=== PATIENT | female | born 1930 | race Caucasian/White ===

== ENCOUNTER 2017-05-27 19:40 | Inpatient (IN) | payer OTHER ==
[~2017-05-27] VITALS: Ht 157.5 cm; Wt 85.1 kg
[~2017-05-27 19:40] MED LIST: ALPHA LIPOIC A600 MG PO; ATIVAN0.5 M1 PO; B COMPLEX1 EACH PO; BIOTIN1000 MC1 PO; CO Q-10100 MG PO; COD LIVER OIL1 EAC2 PO; COUMADIN2.5 M1 PO; COUMADIN5 M2 PO; FUROSEMIDE20 M1 PO; GLIPIZIDE ER5 M1 PO; LEVOTHYROXINE75 MCG PO; LIDOCAINE1 EACH TOP; MAGNESIUM500 M2 PO; MIRTAZAPINE7.5 M1 PO; MULTIVITAMINS1 EAC7 PO; PREDNISONE5 M1 PO; TART CHERRY CA1 EACH PO; VITAMIN B-121000 MC3 PO; VITAMIN D35000 UNI1 PO
--- NOTE | 2017-05-27 19:55 | ED GI/GU/ABDOMINAL COMPLAINT ---
See Addendum History of Present Illness General Chief Complaint: Nausea, Vomiting, Diarrhea Stated Complaint: BIBA FOR +N/V Source: patient Exam Limitations: no limitations Allergies Coded Allergies: clarithromycin (From BIAXIN) (Severe, DIGESTIVE SHUTDOWN, TREMORS 05/27/17) acetaminophen (From ULTRACET) (DIGESTIVE PROBLEMS 05/27/17) amoxicillin (DIGESTIVE PROBLEMS 05/27/17) aspirin (From DARVON COMPOUND-65) (SEVERE VOMITING 05/27/17) berberine (LOOSE EXPLOSIVE BOWELS 05/27/17) caffeine (From DARVON COMPOUND-65) (SEVERE VOMITING 05/27/17) duloxetine (DIGESTIVE PROBLEMS 05/27/17) escitalopram (From LEXAPRO) (NAUSEA/DEPRESSION 05/27/17) fluconazole (From DIFLUCAN) (CONSTANT NAUSEA 05/27/17) fondaparinux (From ARIXTRA) (DIGESTIVE SHUTDOWN, TREMORS 05/27/17) gabapentin (From NEURONTIN) (DIGESTIVE PROBLEMS 05/27/17) hydromorphone (VERY POOR PAIN RELIEF 05/27/17) hyoscyamine (OPPOSITE EFFECTS 05/27/17) imipramine (NAUSEA/DEPRESSION 05/27/17) meperidine (VOMITING 05/27/17) metformin (NAUSEA, BLADDER LEAKAGE 05/27/17) oxychlorosene (GI DISTRESS 11/06/16) oxycodone (NAUSEA, TREMORS, GI UPSET 05/27/17) paroxetine (From PAXIL) (VAGINITIS MONILIASIS 05/27/17) propafenone (NAUSEA, INCONTINENCE, DIZZINESS, TREMORS, SLEEPINESS 05/27/17) propoxyphene (VOMITING 11/06/16) sertraline (From ZOLOFT) (DEPRESSION/NAUSEA 05/27/17) sotalol (NAUSEA, INCONTINENCE, DIZZINESS, TREMORS, SLEEPINESS 05/27/17) tizanidine (DIZZINESS, BLACK OUT, DISORIENTED 05/27/17) tramadol (DIGESTIVE SHUTDOWN, TREMORS 05/27/17) Uncoded Allergies: KELP (SEVERE CHEST PAIN 05/27/17) Reconcile Medications Acetaminophen 500 MG TABLET 1 TAB PO AD PAIN (Reported) Alpha Lipoic Acid 600 MG CAPSULE 1 CAP PO DAILY SUPPLEMENT (Reported) Apixaban (Eliquis) 5 MG TABLET 1 TAB PO BID BLOOD THINNER (Reported) [ARTICHOKE LEAF] 1 CAP PO DAILY SUPPLEMENT (Reported) Ascorbic Acid (Vitamin C) (Unknown Strength) CAPSULE (Unknown Dose) PO DAILY SUPPLEMENT (Reported) Biotin 1,000 MCG TAB.CHEW 1 TAB PO DAILY SUPPLEMENT (Reported) Cholecalciferol (Vitamin D3) (Vitamin D3) 5,000 UNIT TABLET 1 TAB PO DAILY VITAMIN SUPPORT (Reported) Chrm/Theodoreer/Dr Bt-Org Peel/Gr T (Apple Cider Vinegar Plus Tb) (Unknown Strength) TABLET (Unknown Dose) PO DAILY SUPPLEMENT (Reported) Cider Vinegar (Apple Cider Vinegar) (Unknown Strength) TABLET (Unknown Dose) PO QHS PRN SUPPLEMENT (Reported) Cod Liver Oil 1 EACH CAPSULE 1 CAP PO DAILY SUPPLEMENT (Reported) Cyanocobalamin (Vitamin B-12) 1,000 MCG TABLET 1 TAB PO DAILY VITAMIN SUPPORT (Reported) Furosemide 20 MG TABLET 0.5 TAB PO DAILY WATER RETENTION (Reported) Gamma-Aminobutyric Acid (Aminobutyric Acid) 1 GM POWDER 500 MG PO DAILY SUPPLEMENT (Reported) Selene Root (Unknown Strength) CAPSULE (Unknown Dose) PO QHS PRN SUPPLEMENT ( Reported) Glipizide (Glipizide ER) 5 MG TAB.ER.24 1 TAB PO DAILY DIABETES (Reported) Hydrocodone/Acetaminophen (Hydrocodon-Acetaminophen 5-325) 5 MG-325 MG TABLET 1 TAB PO BID PAIN (Reported) [DILLAN'S LEG CRAMPS] 1 TAB PO PRN LEG CRAMPS - OTC (Reported) Lactobacillus Acidophilus (Probiotic) (Unknown Strength) CAPSULE (Unknown Dose ) PO DAILY SUPPLEMENT (Reported) Levothyroxine Sodium 75 MCG TABLET 1 TAB PO DAILY AC THYROID (Reported) Lidocaine 5 % ADH..PATCH 1 PAT TOP DAILY PAIN (Reported) Lorazepam (Ativan) 0.5 MG TABLET 1 TAB PO DAILY SLEEP/TREMORS/STOMACH PROBLEMS (Reported) Magnesium Oxide (Magnesium) 500 MG CAPSULE 1 CAP PO DAILY SUPPLEMENT ( Reported) Mirtazapine 7.5 MG TABLET 1 TAB PO QPM SLEEP/ANXIETY (Reported) Multivitamin With Minerals (Multivitamins With Minerals) 1 EACH TABLET 1 TAB PO DAILY VITAMIN SUPPORT (Reported) Om3/Dha/Epa/Cod Liver Oil/A/D3 (Cod Liver Oil Softgel) 240-1,000MG CAPSULE 1 CAP PO DAILY SUPPLEMENT (Reported) Potassium Gluconate (Potassium) 595 MG (99 MG) TABLET 1 TAB PO BID SUPPLEMENT (Reported) Prednisone 5 MG TABLET 1 TAB PO QAM ARTHRITIS (Reported) Sour Thompson Extract (Tart Thompson Extract) (Unknown Strength) CAPSULE (Unknown Dose) PO DAILY SUPPLEMENT (Reported) Ubidecarenone (Co Q-10) 100 MG CAPSULE 1 CAP PO DAILY SUPPLEMENT (Reported) Vitamin B Complex 1 EACH CAPSULE 1 CAP PO DAILY SUPPLEMENT (Reported) Triage Nurses Notes Reviewed? yes ? N Is pt currently ? No Duration: constant Timing: multiple episodes today Quality/Severity: moderate Severity Numbers: 5 HPI: PT IS A 86-year-old female past medical history of fibromyalgia, non-insulin- dependent diabetes, ESSENTIAL TREMOR and hypothyroidism, PVD WITH STENT PLACE ON 04/29/17 RIGHT LEG PLACED BY TAMMY RODRIGUEZ NOT ON ANTICOAGULATION who presents emergency room brought in by ambulance in which she woke up in her normal state of health today however for lunch at around 1200 TODAY she had a ham and cheese sandwich with mayonnaise and 5 hourS later patient had acute onset of generalized nausea and which she began having multiple episodes of nonbloody nonbilious emesis and multiple episodes of loose watery diarrhea production. Patient denies any fever chills chest pain shortness of breath abdominal pain dysuria or hematuria or vaginal bleeding or discharge. No recent antibiotic use. No blood no melena noted from bowel movements. HAD ON 05/11/17 HAD VENOGRAPHY SHOWING NO OCCULSION AT [facility] PT WAS EVALUATED BY DR KOO TODAY FOR HER LEGS AND HAD UNREMARKABLE ACUTE FINDINGS PRIOR TO ONSET OF SYMPTOMS (Giuseppe GUSMAN,Willi) Vital Signs & Intake/Output Vital Signs & Intake/Output Vital Signs Date Time Temp Pulse Resp B/P B/P Pulse O2 O2 Flow FiO2 Mean Ox Delivery Rate 05/27 2204 98 20 132/64 99 Room Air 05/27 2199 95 22 141/85 96 Room Air 05/27 2133 Room Air 05/27 2014 97.0 110 18 142/89 98 Room Air ED Intake and Output 05/28 0000 05/27 1200 Intake Total 2000 Output Total Balance 2000 Intake, IV 2000 Patient 195 lb Weight Weight Reported by Patient Measurement Method (Deneen MELÉNDEZ,Wayne Sullivan) Past History Travel History Traveled to [place] past 21 day No Medical History Any Pertinent Medical History? see below for history Neurological: NONE EENT: NONE Cardiovascular: AFIB Respiratory: NONE Gastrointestinal: NONE Hepatic: NONE Renal: NONE Musculoskeletal: fibromyalgia Psychiatric: NONE Endocrine: diabetes, hyperthyroidism Blood Disorders: NONE Cancer(s): NONE RELIGION DEPARTMENT CHAIR/Reproductive: NONE Surgical History Surgical History: appendectomy, cholecystectomy, Psychosocial History What is your primary language Serbian Family History Hx Contributory? No (Willi Parada) Review of Systems Review of Systems Constitutional: Reports: no symptoms. EENTM: Reports: no symptoms. Respiratory: Reports: no symptoms. Cardiovascular: Reports: no symptoms. GI: Reports: see HPI, nausea, vomiting. Denies: abdominal pain. Genitourinary: Reports: no symptoms. Musculoskeletal: Reports: no symptoms. Skin: Reports: no symptoms. Neurological/Psychological: Reports: no symptoms. Hematologic/Endocrine: Reports: no symptoms. Immunologic/Allergic: Reports: no symptoms. All Other Systems: Reviewed and Negative (Willi Parada) Physical Exam Physical Exam General Appearance: no apparent distress, alert, comfortable Head: atraumatic Eyes: Bilateral: normal appearance. Ears, Nose, Throat, Mouth: hearing grossly normal Neck: normal inspection Respiratory: normal breath sounds, chest non-tender, no respiratory distress Cardiovascular: irregularly irregular Gastrointestinal: normal bowel sounds, soft, tenderness (MILD GENERALIZED ABDOMINAL SILVESTRE) Neurologic/Psych: no motor/sensory deficits Skin: intact, normal color, warm/dry Core Measures ACS in differential dx? No Sepsis Present: No Sepsis Focused Exam Completed? No (Willi Parada) Progress Differential Diagnosis: AAA, AMI, biliary colic, bowel obstruction, colon cancer , cholecystitis, diverticulitis, endometritis, esophageal varices, gastritis, hepatitis, hernia, hemorrhoids, ischemic bowel, inflamm bowel dis, kidney stone, ovarian cyst, ovarian torsion, pancreatitis, PID/cervicitis, peptic ulcer, PUD/ GERD, perforated viscous, SBO, UTI/pyelo Diagnostic Imaging: Viewed by Me: CT Scan. Radiology Impression: SEE COMMENTS Initial ED EKG: AFIB Comments: PATIENT: ANGE ESQUIVEL PRESENT AGE: 86 PATIENT ACCOUNT NO: [id number] : 32 LOCATION: [facility] ORDERING PHYSICIAN: Willi GUSMAN SERVICE DATE: 05/27/17 EXAM TYPE: CAT - CT ABD & PELVIS W/O IV CONTRAS EXAMINATION: CT ABDOMEN AND PELVIS WITHOUT CONTRAST CLINICAL INFORMATION: Abdominal pain, nausea and vomiting. COMPARISON: 11/06/2016. TECHNIQUE: Multidetector volumetric imaging was performed from the superior aspect of the liver through the pubic symphysis. Sagittal and coronal reformatted images were obtained on the technologist's workstation. DLP: 615 mGy-cm FINDINGS: LUNG BASES: Trace right pleural effusion and basilar atelectasis. LIVER, GALLBLADDER, AND BILIARY TREE: The unenhanced liver is normal in size, shape, and attenuation. No focal hepatic lesion or biliary ductal dilatation is present. The gallbladder is absent. PANCREAS: Unremarkable. SPLEEN: Unremarkable. ADRENAL GLANDS: Unremarkable. KIDNEYS AND URETERS: The kidneys are normal in size, shape, and attenuation. No hydronephrosis, hydroureter, or calculi seen. No perinephric stranding. BLADDER: Unremarkable. GASTROINTESTINAL TRACT: Extensive sigmoid diverticulosis. No focal inflammatory process or obstruction. There is a 4 cm duodenal diverticulum. ABDOMINAL WALL: Ventral hernia repair mesh in place and intact. LYMPH NODES: Normal. VASCULAR: Interval placement of a right external iliac vein stent. Diffuse atherosclerosis. PELVIC VISCERA: Unremarkable. OSSEOUS STRUCTURES: Osteopenia and postsurgical changes with no acute abnormality. There is band of attenuation in the subcutaneous fat lateral to the right greater trochanter which may represent a contusion/hematoma. IMPRESSION: Sigmoid diverticulosis. No focal inflammatory process or obstruction. Trace right pleural effusion and basilar atelectasis. DICTATED BY: Shaq Winslow MD DATE/TIME DICTATED:05/27/172131 PIANO REGULATOR INSPECTOR:RAQUEL DATE/TIME TRANSCRIBED:05/27/172131 (Willi Parada) Plan of Care: Orders Procedure Date/time Status Consistent Carbohydrate 1 05/28 B Active Patient Data 05/27 235 Active LACTIC ACID 05/[address] in observation 05/27 234 Active Misc Message 05/27 234 Active ED Holding Orders 05/27 234 Active Code Status 05/27 2344 Active EKG 05/28 2339 Active LIPASE 05/28 2051 Complete LACTIC ACID 05/28 2051 Complete COMPREHENSIVE METABOLIC PANEL 05/28 2051 Complete CBC WITHOUT DIFFERENTIAL 05/28 2051 Complete AMYLASE 05/28 2051 Complete CULTURE,STOOL 05/27 2006 Active OVA AND PARASITE ANTIGENS 05/27 2006 Active C.DIFFICILE 05/27 2006 Active Current Medications Sig/Rich Start time Last Medication Dose Stop Time Status Admin Sodium Chloride 1,000 ML BOLUS ONE 05/27 2329 AC 05/27 (Normal Saline 0.9%) 05/28 0029 2330 Laboratory Tests 05/27/172215: Anion Gap 11, Estimated GFR 14 L, BUN/Creatinine Ratio 22.5, Glucose 151 H, Lactic Acid 2.0, Calcium 9.0, Total Bilirubin 1.0, AST 14, ALT 31, Alkaline Phosphatase 42, Total Protein 5.3 L, Albumin 3.1 L, Globulin 2.2, Albumin/ Globulin Ratio 1.4, Amylase 31, Lipase 50 05/27/172123: CBC w Diff NO MAN DIFF REQ, RBC 3.15 L, MCV 100.3 H, MCH 32.2 H, MCHC 32.0 L , RDW 16.1 H, MPV 7.9, Gran % 86.4 H, Lymphocytes % 3.0 L, Monocytes % 8.0, Eosinophils % 0.9, Basophils % 1.7, Absolute Granulocytes 13.3 H, Absolute Lymphocytes 0.5 L, Absolute Monocytes 1.2 H, Absolute Eosinophils 0.1, Absolute Basophils 0.3 Microbiology 05/27 2314 STOOL: Cryptosporidium Antigen - RECD 05/27 2314 STOOL: Giardia Antigen (ZOHAIB) - RECD 05/27 2020 STOOL: Clostridium difficile Toxin A & B - RECD 05/27 2020 STOOL: Stool Culture - RECD Patient on initial presentation was resting comfortably at bedside patient was normotensive afebrile PT HAS mild generalized abdominal point tenderness on exam and CT scan was resulted showing no acute process however patient does have concerns of acute kidney injury dehydration and nausea vomiting diarrhea. Discussed my concerns with patient and daughter to have patient placed in observation and have repeat lab work and slow IV fluid resuscitation which they agree and have no questions. (Willi Parada) (Deneen MELÉNDEZ,Wayne Sullivan) Departure Departure Disposition: STILL A PATIENT Condition: Stable Clinical Impression Primary Impression: JANNETH (acute kidney injury) Secondary Impressions: Diarrhea, Nausea & vomiting Referrals: Kisha MELÉNDEZ,Hermann Ospina (PCP/Family) Departure Forms: Customer Survey General Discharge Information Observation Note Spoke With: Matt MELÉNDEZ,Sabrina Physician Advisor Notified: JAILENE MELÉNDEZ,DENZEL [address] Patient In: Non-ED OBS Care Area Rationale for Observation: My rational for observation is as follows [patient requires SLOW IV fluid resuscitation, repeat labs possible, REPEAT BUN/CREATININE AND POSSIBLE gastroenterology consultation and cardiology consultation for known and recurrent AFIB]. (Giuseppe GUSMAN,Willi) PA/COAL YARD SUPERVISOR Co-Sign Statement Statement: ED Attending supervision documentation- [X] I saw and evaluated the patient. I have also reviewed all the pertinent lab results and diagnostic results. I agree with the findings and the plan of care as documented in the PA's/COAL YARD SUPERVISOR's documentation. Patient presents for evaluation of nausea and diarrhea beginning earlier today. Physical examination reveals softly distended abdomen with mild tympany and tenderness without rebound or guarding. [] I have reviewed the ED Record and agree with the PA's/COAL YARD SUPERVISOR's documentation. [] Additions or exceptions (if any) to the PAs/COAL YARD SUPERVISOR's note and plan are summarized below: [] (Deneen MELÉNDEZ,Wayne Sullivan)
[2017-05-27] MEDS ORDERED: ELIQUIS5 M1 PO (20:45)
[2017-05-27] MEDS ORDERED: HYDROCODON-ACE1 EAC2 PO (20:46)
[2017-05-27] MEDS ORDERED: VITAMIN B COMP1 EACH PO (20:47)
[2017-05-27] MEDS ORDERED: VITAMIN C500 M9 PO (20:48)
[2017-05-27] MEDS ORDERED: POTASSIUM99 M1 PO (20:49)
[2017-05-27] MEDS ORDERED: TART CHERRY E1000 MG PO (20:50)
[2017-05-27] MEDS ORDERED: AMINOBUTYRIC ACI1 GM PO (20:51)
[2017-05-27] MEDS ORDERED: APPLE CIDER VI1 EACH PO (20:52)
[2017-05-27] MEDS ORDERED: ACETAMINOPHEN500 M4 PO (20:53)
[2017-05-27] MEDS ORDERED: COD LIVER OIL1 EAC3 PO (20:54)
[2017-05-27] MEDS ORDERED: HYLAND'S LEG CRAMPS PO (20:54)
[2017-05-27] MEDS ORDERED: [UNRECOGNIZED DRUG - OTHER] PO (21:01)
[2017-05-27] MEDS ORDERED: PROBIOTIC1 EACH PO (21:01)
[2017-05-27] MEDS ORDERED: GINGER ROOT550 MG PO (21:02)
[2017-05-27] MEDS ORDERED: APPLE CIDER VI500 MG PO (21:03)
[2017-05-27 21:39] LABS: ABSOLUTE BASOPHIL COUNT 0.3 /CUMM (0.0-0.2); ABSOLUTE EOSINOPHIL COUNT 0.1 /CUMM (0.0-0.7); ABSOLUTE GRANULOCYTE CT 13.3 /CUMM (1.4-6.5); ABSOLUTE LYMPH COUNT 0.5 /CUMM (1.2-3.4); ABSOLUTE MONOCYTE COUNT 1.2 /CUMM (0.10-0.60); BASOPHIL % 1.7 % (0.0-2.0); EOSINOPHIL % 0.9 % (0-5); HEMATOCRIT 31.6 % (37-47); MEAN CORPUSCULAR HGB 32.2 PG (27.0-31.0); MEAN CORPUSCULAR VOLUME 100.3 FL (81.0-99.0); MEAN PLATELET VOLUME 7.9 FL (7.4-10.4); PLATELET COUNT 315 /CUMM (130-400); RBC DISTRIBUTION WIDTH 16.1 % (11.5-14.5); RED BLOOD CELL CT 3.15 /CUMM (4.20-5.40); WHITE BLOOD CELL COUNT 15.4 /CUMM (4.8-10.8)
[2017-05-27 21:57] LABS: GRANULOCYTE % 86.4 % (42.2-75.2)
--- NOTE | 2017-05-27 22:05 | CT SCAN REPORT ---
EXAMINATION: CT ABDOMEN AND PELVIS WITHOUT CONTRAST CLINICAL INFORMATION: Abdominal pain, nausea and vomiting. COMPARISON: 11/06/2016. TECHNIQUE: Multidetector volumetric imaging was performed from the superior aspect of the liver through the pubic symphysis. Sagittal and coronal reformatted images were obtained on the technologist's workstation. DLP: 615 mGy-cm FINDINGS: LUNG BASES: Trace right pleural effusion and basilar atelectasis. LIVER, GALLBLADDER, AND BILIARY TREE: The unenhanced liver is normal in size, shape, and attenuation. No focal hepatic lesion or biliary ductal dilatation is present. The gallbladder is absent. PANCREAS: Unremarkable. SPLEEN: Unremarkable. ADRENAL GLANDS: Unremarkable. KIDNEYS AND URETERS: The kidneys are normal in size, shape, and attenuation. No hydronephrosis, hydroureter, or calculi seen. No perinephric stranding. BLADDER: Unremarkable. GASTROINTESTINAL TRACT: Extensive sigmoid diverticulosis. No focal inflammatory process or obstruction. There is a 4 cm duodenal diverticulum. ABDOMINAL WALL: Ventral hernia repair mesh in place and intact. LYMPH NODES: Normal. VASCULAR: Interval placement of a right external iliac vein stent. Diffuse atherosclerosis. PELVIC VISCERA: Unremarkable. OSSEOUS STRUCTURES: Osteopenia and postsurgical changes with no acute abnormality. There is band of attenuation in the subcutaneous fat lateral to the right greater trochanter which may represent a contusion/hematoma. IMPRESSION: Sigmoid diverticulosis. No focal inflammatory process or obstruction. Trace right pleural effusion and basilar atelectasis.
--- NOTE | 2017-05-28 00:21 | History & Physical ---
RandyRutledge 05/28/17 0017: General Information and HPI MD Statement: I have seen and personally examined ANGE ESQUIVEL and documented this H&P. The patient is a 86 year old F who presented with a patient stated chief complaint of nausea, vomiting and diarrhea since yesterday afternoon.[]. Source of Information: patient Exam Limitations: no limitations History of Present Illness: 86 YO F non smoker with PMH of A.fib not on anticoagulation, DVT on eliquis, DM, PVD s/p stent placement, fibromyelgia and hypothyroidism was brought previously with chief complaint of nausea, vomiting and diarrhea since yesterday afternoon. The patient reported that she was in her usual state of health since yestersay afternoon. She ate cheese sandwich with [employer] and went to the vascular surgery clinic that was scheduled previously. After she came back from the clinic she was feeling nauseous and then to restroom where she had big nonbloody , qrm-qjpu-[id number] loose bowel movement and also she started to have vomiting that was ext-usev-zffchmxd and nonbloody. Later on the ambulance was called. Patient reported that during her way to the hospital she had loose bowel movement on the day. Patient also was complaining of diffuse crampy abdominal pain duringbowel movement. Patient denied any chest pain, short of breath, palpitation, sick contacts, eating anything from outside, bloody bowel movement, lightheadedness, loss of consciousness and dysuria. Patient also reported that during her visit to vascular clinic today they did the double compression wrapping for her chronic venous insufficiency and nonhealing left leg wound. Patient also endosed that she had paroxysmal A. fib in 2010 and she was put on Coumadin but 1 year back Coumadin was stopped. Patient is seeing Dr. Jones for her cardiac issues. She reported that she had one echocardiogram and she didn't see Dr. Jones for a while. Patient also reported having a recent DVT in April 2018 and after that she was given Eliquis 2.5 mg twice a day. Patient also reported having recent right leg stent placement in popliteal artery. Patient is taking Lasix for bilateral pedal edema. ED course: Vitals: Temperature 97.0, pulse 110, respiratory rate 18, blood pressure 142/89, oxygen saturation 98% on room air. Labs: WBC count 15.4, hemoglobin 10.1, hematocrit 31.6, platelet count 315, sodium 140, potassium 5.1, BUN 72, creatinine 3.2, BUN/creatinine ratio 22.5, glucose 151, lactic acid 2.0, anion gap 11, calcium 9.0, AST 14, ALT 31, alkaline phosphatase 42, total protein 5.3, albumin 3.1, globulin 2.2, mildly is 31, lipase 50 Patient received 1.5 L bolus of normal saline in ED. Her EKG today showing paroxysmal A. fib compared to her last EKG that was showing normal sinus rhythm with premature ventricular beats. Allergies/Medications Allergies: Coded Allergies: clarithromycin (From BIAXIN) (Severe, DIGESTIVE SHUTDOWN, TREMORS 05/27/17) acetaminophen (From ULTRACET) (DIGESTIVE PROBLEMS 05/27/17) amoxicillin (DIGESTIVE PROBLEMS 05/27/17) aspirin (From DARVON COMPOUND-65) (SEVERE VOMITING 05/27/17) berberine (LOOSE EXPLOSIVE BOWELS 05/27/17) caffeine (From DARVON COMPOUND-65) (SEVERE VOMITING 05/27/17) duloxetine (DIGESTIVE PROBLEMS 05/27/17) escitalopram (From LEXAPRO) (NAUSEA/DEPRESSION 05/27/17) fluconazole (From DIFLUCAN) (CONSTANT NAUSEA 05/27/17) fondaparinux (From ARIXTRA) (DIGESTIVE SHUTDOWN, TREMORS 05/27/17) gabapentin (From NEURONTIN) (DIGESTIVE PROBLEMS 05/27/17) hydromorphone (VERY POOR PAIN RELIEF 05/27/17) hyoscyamine (OPPOSITE EFFECTS 05/27/17) imipramine (NAUSEA/DEPRESSION 05/27/17) meperidine (VOMITING 05/27/17) metformin (NAUSEA, BLADDER LEAKAGE 05/27/17) oxychlorosene (GI DISTRESS 11/06/16) oxycodone (NAUSEA, TREMORS, GI UPSET 05/27/17) paroxetine (From PAXIL) (VAGINITIS MONILIASIS 05/27/17) propafenone (NAUSEA, INCONTINENCE, DIZZINESS, TREMORS, SLEEPINESS 05/27/17) propoxyphene (VOMITING 11/06/16) sertraline (From ZOLOFT) (DEPRESSION/NAUSEA 05/27/17) sotalol (NAUSEA, INCONTINENCE, DIZZINESS, TREMORS, SLEEPINESS 05/27/17) tizanidine (DIZZINESS, BLACK OUT, DISORIENTED 05/27/17) tramadol (DIGESTIVE SHUTDOWN, TREMORS 05/27/17) Uncoded Allergies: KELP (SEVERE CHEST PAIN 05/27/17) Home Med list Acetaminophen 500 MG TABLET 1 TAB PO AD PAIN (Reported) Alpha Lipoic Acid 600 MG CAPSULE 1 CAP PO DAILY SUPPLEMENT (Reported) Apixaban (Eliquis) 5 MG TABLET 1 TAB PO BID BLOOD THINNER (Reported) [ARTICHOKE LEAF] 1 CAP PO DAILY SUPPLEMENT (Reported) Ascorbic Acid (Vitamin C) (Unknown Strength) CAPSULE (Unknown Dose) PO DAILY SUPPLEMENT (Reported) Biotin 1,000 MCG TAB.CHEW 1 TAB PO DAILY SUPPLEMENT (Reported) Cholecalciferol (Vitamin D3) (Vitamin D3) 5,000 UNIT TABLET 1 TAB PO DAILY VITAMIN SUPPORT (Reported) Chrm/Theodoreer/ Bt-Org Peel/Gr T (Apple Cider Vinegar Plus Tb) (Unknown Strength) TABLET (Unknown Dose) PO DAILY SUPPLEMENT (Reported) Cider Vinegar (Apple Cider Vinegar) (Unknown Strength) TABLET (Unknown Dose) PO QHS PRN SUPPLEMENT (Reported) Cod Liver Oil 1 EACH CAPSULE 1 CAP PO DAILY SUPPLEMENT (Reported) Cyanocobalamin (Vitamin B-12) 1,000 MCG TABLET 1 TAB PO DAILY VITAMIN SUPPORT (Reported) Furosemide 20 MG TABLET 0.5 TAB PO DAILY WATER RETENTION (Reported) Gamma-Aminobutyric Acid (Aminobutyric Acid) 1 GM POWDER 500 MG PO DAILY SUPPLEMENT (Reported) Selene Root (Unknown Strength) CAPSULE (Unknown Dose) PO QHS PRN SUPPLEMENT ( Reported) Glipizide (Glipizide ER) 5 MG TAB.ER.24 1 TAB PO DAILY DIABETES (Reported) Hydrocodone/Acetaminophen (Hydrocodon-Acetaminophen 5-325) 5 MG-325 MG TABLET 1 TAB PO BID PAIN (Reported) [DILLAN'S LEG CRAMPS] 1 TAB PO PRN LEG CRAMPS - OTC (Reported) Lactobacillus Acidophilus (Probiotic) (Unknown Strength) CAPSULE (Unknown Dose ) PO DAILY SUPPLEMENT (Reported) Levothyroxine Sodium 75 MCG TABLET 1 TAB PO DAILY AC THYROID (Reported) Lidocaine 5 % ADH..PATCH 1 PAT TOP DAILY PAIN (Reported) Lorazepam (Ativan) 0.5 MG TABLET 1 TAB PO DAILY SLEEP/TREMORS/STOMACH PROBLEMS (Reported) Magnesium Oxide (Magnesium) 500 MG CAPSULE 1 CAP PO DAILY SUPPLEMENT ( Reported) Mirtazapine 7.5 MG TABLET 1 TAB PO QPM SLEEP/ANXIETY (Reported) Multivitamin With Minerals (Multivitamins With Minerals) 1 EACH TABLET 1 TAB PO DAILY VITAMIN SUPPORT (Reported) Om3/Dha/Epa/Cod Liver Oil/A/D3 (Cod Liver Oil Softgel) 240-1,000MG CAPSULE 1 CAP PO DAILY SUPPLEMENT (Reported) Potassium Gluconate (Potassium) 595 MG (99 MG) TABLET 1 TAB PO BID SUPPLEMENT (Reported) Prednisone 5 MG TABLET 1 TAB PO QAM ARTHRITIS (Reported) Sour Thompson Extract (Tart Thompson Extract) (Unknown Strength) CAPSULE (Unknown Dose) PO DAILY SUPPLEMENT (Reported) Ubidecarenone (Co Q-10) 100 MG CAPSULE 1 CAP PO DAILY SUPPLEMENT (Reported) Vitamin B Complex 1 EACH CAPSULE 1 CAP PO DAILY SUPPLEMENT (Reported) Past History Travel History Traveled to [place] past 21 day No Medical History Neurological: NONE EENT: NONE Cardiovascular: AFIB Respiratory: NONE Gastrointestinal: NONE Hepatic: NONE Renal: NONE Musculoskeletal: fibromyalgia Psychiatric: NONE Endocrine: diabetes, hyperthyroidism Blood Disorders: NONE Cancer(s): NONE 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 EENTM: Reports: no symptoms. Cardiovascular: Reports: no symptoms. Respiratory: Reports: no symptoms. GI: Reports: nausea, vomiting. Genitourinary: Reports: no symptoms. Musculoskeletal: Reports: no symptoms. Skin: Reports: no symptoms. Neurological/Psychological: Reports: no symptoms. Hematologic/Endocrine: Reports: no symptoms. Exam & Diagnostic Data Last 24 Hrs of Vital Signs/I&O Vital Signs Date Time Temp Pulse Resp B/P B/P Pulse O2 O2 Flow FiO2 Mean Ox Delivery Rate 05/28 0109 98.1 94 18 120/70 98 Room Air 05/27 2204 98 20 132/64 99 Room Air 05/27 2199 95 22 141/85 96 Room Air 05/27 2133 Room Air 05/27 2014 97.0 110 18 142/89 98 Room Air Intake & Output 05/28 0800 05/28 0000 05/27 1600 Intake Total 2000 Output Total Balance 2000 Intake, IV 2000 Patient 195 lb Weight Weight Reported by Patient Measurement Method Physical Exam General Appearance Alert, Oriented X3, Cooperative Skin No Rashes Skin Temp/Moisture Exam: Warm/Dry Sepsis Skin Exam (color): Normal for Ethnicity HEENT Atraumatic, PERRLA, EOMI Neck Supple Cardiovascular Normal S1, Normal S2 Lungs Clear to Auscultation, Normal Air Movement Abdomen No Tenderness, Abdominal distension Neurological Normal Speech, Strength at 5/5 X4 Ext, Normal Tone Extremities B/L pedal edema, chronic venous insufficiency b/l, left leg chronic non healing superficial wound Last 24 Hrs of Labs/Jorge: Laboratory Tests 05/28/17 0205: Lactic Acid Pending 05/27/17 221: Anion Gap 11, Estimated GFR 14 L, BUN/Creatinine Ratio 22.5, Glucose 151 H, Lactic Acid 2.0, Calcium 9.0, Total Bilirubin 1.0, AST 14, ALT 31, Alkaline Phosphatase 42, Troponin I < 0.01, Total Protein 5.3 L, Albumin 3.1 L, Globulin 2.2, Albumin/Globulin Ratio 1.4, Amylase 31, Lipase 50, TSH Pending, Free T4 1.48, Total T3 Pending 05/27/172123: CBC w Diff NO MAN DIFF REQ, RBC 3.15 L, MCV 100.3 H, MCH 32.2 H, MCHC 32.0 L , RDW 16.1 H, MPV 7.9, Gran % 86.4 H, Lymphocytes % 3.0 L, Monocytes % 8.0, Eosinophils % 0.9, Basophils % 1.7, Absolute Granulocytes 13.3 H, Absolute Lymphocytes 0.5 L, Absolute Monocytes 1.2 H, Absolute Eosinophils 0.1, Absolute Basophils 0.3 Microbiology 05/27 2314 STOOL: Cryptosporidium Antigen - RECD 05/27 2314 STOOL: Giardia Antigen (JORGE) - RECD 05/27 2020 STOOL: Clostridium difficile Toxin A & B - RECD 05/27 2020 STOOL: Stool Culture - RECD Assessment/Plan Assessment: 86 YO F non smoker with PMH of A.fib not on anticoagulation, DVT on eliquis, DM, PVD s/p stent placement, fibromyelgia and hypothyroidism was brought previously with chief complaint of nausea, vomiting and diarrhea since yesterday afternoon. We will admit the patient on telemetry floor as patient developed paroxysmal A. fib due to stress secondary to acute gastroenteritis. Paroxysmal A. fib: -We will monitor her on telemetry floor for worsening of any arrhythmias or acute myocardial injury that's precipitating her A. fib. -We will do one more set of troponin and EKG. -Echocardiogram in the morning -Consult cardiology Acute gastroenteritis: -SIRS criteria 2 out of 4 positive possibly due to acute gastroenteritis. Leucocytosis could be due to gastroenteritis and she has tachycardia in the setting of A.fib. -Possibly food poisoning as it started 2 hours after patient ate a sandwich. -Gentamicin IV hydration with normal saline at the rate of 75 mL per hour. -Antiemetic medication when necessary -Follow the stool studies -IV Protonix Acute on chronic kidney injury: -Could be Precipitated by acute loss of fluid by gastroenteritis or due to contrast-induced kidney injury as patient got stent placement 3 weeks back. Patient's baseline creatinine is 1.4 but after that you don't have any creatinine level. We will get record from primary care physician for her kidney function. -Gentle IV hydration. -Monitor input and output -No nephrotoxic medications -Hold Lasix for now that can precipitate kidney injury. History of diabetes: -We will hold her home medication -Accu-Cheks -Insulin NovoLog according to sliding scale during hospital stay. History of fibromyalgia: -Continue home medications History of hypothyroidism: -Continue levothyroxine -TSH and free T4 DVT prophylaxis: - mechanical and patient is already on Eliquis CODE STATUS: DNR/DNI As Ranked By This Provider Problem List: 1. Acute gastroenteritis 2. Kmlak-[id number] kidney injury 3. Paroxysmal A-fib Core Measures/Misc (11/29) Acute Coronary Syndrome ACS Diagnosis: No Congestive Heart Failure Congestive Heart Failure Diagnosis No Cerebrovascular Accident CVA/TIA Diagnosis: No VTE (View Protocol) VTE Risk Factors Age>40 No Mechanical VTE Prophylaxis d/t N/A MechProphylax Ordered No VTE Pharm Prophylaxis d/t NA PharmProphylax ordered Sepsis (View protocol) Sepsis Present: No Jennifer Desir 05/28/17 0223: Resident Review Statement Resident Statement: examined this patient, discussed with development intern, agreed with development intern Other Findings: Patient is 86-year-old female with past medical history significant for severe peripheral vascular disease status post stent placement and recent thrombectomy for DVT on anticoagulation, history of fibromyalgia, hypothyroidism , paroxysmal atrial fibrillation came in with chief complaint of nausea, vomiting and diarrhea for one day. Patient has recent lower extremity stent placement almost 2 weeks ago and also was found to have DVT for which she was started on apixaban. After lunch she went to see her vascular surgeon for compression bandages and chronic lower extremity venous stasis ulcers. While in his office she start experiencing severe nausea and had large loose bowel movement and innumerable episodes of vomiting. She denied fever, chills, dizziness, palpitations, chest pain, any urinary complaints. Vital signs on admission were temperature 97.0, pulse 110, respiratory rate 18, blood pressure 142/89 and she was saturating 98% on room air. Labs were significant for WBC count 15.4, hemoglobin 10.1, hematocrit 31.6, platelet count 3:15, sodium 140, potassium 5.1, BUN 72, creatinine 3.2 Sigmoid diverticulosis without evidence of inflammatory process or obstruction. EKG showed atrial fibrillation with no acute ST-T wave changes On examination Alert and oriented 3 Mucous membranes slightly dry/dehydrated Head atraumatic Neck supple Chest clear to auscultate Heart S1-S2 normal irregularly irregular rhythm with no added sounds Abdomen distended , slight tenderness with no organomegaly Extremities showed bilateral edema, chronic venous stasis changes and chronic non-weeping ulcer on left lower calf Normal pulses bilaterally Assessment and plan 86-year-old female with history of severe Peripheral vascular disease with recent stent placement and DVT on apixaban, paroxysmal atrial fibrillation, fibromyalgia and hypothyroidism came in with acute episodes of nausea vomiting and diarrhea after having a bergur at lunch. Problem list 1. Acute on chronic kidney injury could be due to dehydration due to acute episodes of vomiting and diarrhea but as she had recent contrast during stent placement could be contrast-induced nephropathy. 2. History of diabetes 3. History of severe peripheral vascular disease 4. History of paroxysmal atrial fibrillation currently in A. fib 5. Acute onset of nausea, vomiting and diarrhea most likely foodborne gastroenteritis Plan 1. We will keep her in telemetry unit for observation 2. She has history of paroxysmal atrial fibrillation but currently she is in A. fib. Her current dehydration and infection could be cause of A. fib at the moment. She is taking apixaban for DVT but we will continue for A. fib at dose of 2.5 due to AK I. 2. Her creatinine is elevated from her baseline which was around 1.4 but we don 't have recent creatinine values after and before stent placement and her acute kidney injury be due to dehydration but her BUN/creatinine ratio is normal and it could be contrast-induced nephropathy. Patient received 1/2 L of normal saline in emergency room. As we don't know her cardiac status and ejection fraction we will continue fluids at 75 minutes per later and will do echocardiogram to look for ejection fraction and ventricular wall motion as well as any valvular abnormality. 3. We will continue her levothyroxine and will recheck her TSH, free T4 and total T3. 4. We will get the records and recent creatinine value from her PCP or vascular surgery office. 5. We'll reconsult her metastases in the morning as patient doesn't know much about her medications. We will continue her steroids 5 mg daily but we will confirm from her daughter in a.m. 6. We will request cardiology evaluation by Dr. Jones in a.m. 7. We will treat her gastroenteritis which most likely is food borne/food poisoning 's with symptomatic treatment with IV hydration and antiemetics as needed. Pharmacological DVT prophylaxis Patient is DNI DNR Diabetic diet Sabrina Gutierrez 05/28/17 0319: Attending MD Review Statement Attending Statement Attending MD Statement: examined this patient, discuss w/resident/PA/LICENSED STAFF MFT, agreed w/resident/PA/LICENSED STAFF MFT, reviewed EMR data (avail), reviewed images, amended to note Attending Assessment/Plan: CC: Diarrhea and vomiting PMH: Diabetes "insulin resistance"in patient's own words, fibromyalgia, hypothyroidism, paroxysmal A. fib, peripheral weakness disease S/P stent 2017, revision venogram 05/11/2017. Patient came to ER for several episodes of diarrhea and vomiting. She is a very good historian. She states that she had a sandwich which had mayonnaise. After that she went to see her vascular doctor as a routine follow-up, after coming back she started to have some nausea. In couple of hours, she started to have dry heaving followed by multiple episodes of vomiting and 3-4 watery bowel movements. No blood in vomiting or stool. She immediately called EMS, had stool incontinence while in transport, she received some injection while in ER and has not vomited since then. She denies any chest pain, heartburn, epigastric pain, dizziness, syncope or presyncope even after multiple vomitings. Patient underwent vascular stenting procedure peripheral pain in right lower extremity " in groin" on 04/29/2017, it was complicated by a clot, she underwent repeat venogram on 11 of May, and had popliteal venous procedure at that time. She was started on Eliquis because of "the clot". She has been following him weekly once outpatient thereafter, was on compression bandages which was recently stopped. She has chronic nonhealing wound on the left leg which are dressed, evaluated outpatient today. She also mentions that she had an episode of A. fib in 2010 after which she did not have any problems with A. fib. She was on warfarin for some time but was discontinued since last 1 year. Vitals: Afebrile, pulse in 90s, RR 18, blood pressure 142/89, saturating well on room air. On exam: A O 3, cooperative, no acute distress, neck supple, JVD normal, no lymphadenopathy, mucosa dry, no focal neurological deficit, bilateral lower extremity edema right more than left, chronic skin changes on right lower extremity and chronic wounds on the lateral aspects of left lower extremity, noninfected, CVS: S1-S2, irregular. RS: Clear to auscultate bilaterally. Abdomen : Soft, NT, ND, bowel sounds present. CT abdomen pelvis without IV contrast: Sigmoid diverticulosis. No focal inflammatory process or obstruction. Trace right pleural effusion and basilar atelectasis. Interval placement of a right external iliac vein stent. Diffuse atherosclerosis. There is band of attenuation in the subcutaneous fat lateral to the right greater trochanter which may represent a contusion/hematoma. Assessment and plan 86-year-old female with past medical history significant for diabetes, fibromyalgia, hypothyroidism, paroxysmal A. fib, peripheral vascular disease status post external iliac vein stenting, repeat venogram as mentioned up presented in ER for acute onset vomiting and diarrhea. Symptoms are typical within a few hours of eating mayonnaise sandwich which explains preformed toxin related gastroenteritis. She appears dehydrated on exam, lower extremity has chronic changes with edema, skin discoloration and chronic wound on left lower extremity. Imaging was unremarkable but she was found to have elevated creatinine of 3.2 lactate of 2.0 and leukocytosis 15.4 with left shift. Her hemoglobin has dropped from 11.5 from March 16 10.1. Patient on Eliquis, denies any acute bleeding and vomiting or diarrhea. The previous upper lip creatinine we have in March was 1.4, patient underwent vascular procedures thereafter in the month of April, repeat creatinine at that time is not available. This elevated creatinine secondary to prerenal secondary to dehydration but her recent values done in April should be obtained to rule out any ALTAF. She is also found to have a on ECG, this is new as compared to previous ECG in 2017 in 2012 which was sinus rhythm. According to patient she had previous episode of the left circumflex this appears relatively new change and could be precipitated by acute gastroenteritis but she would benefit observation on telemetry. + Acute gastroenteritis : food Poisoning + Acute kidney injury + Chronic anemia + SIRS positive secondary to gastroenteritis, with reactive leukocytosis and tachycardia + A. fib rate controlled + History of diabetes, hypothyroidism, fibromyalgia, peripheral venous disease S /P stent - Place in observation on telemetry - Continue architect intern - Continue gentle hydration - 1 more set of troponin and ECG - Hold Lasix - Consult cardiology : Patient had seen Dr. Jones in the past - Continue renally adjusted dose of Eliquis - Hold glipizide, continue sliding scale insulin - Continue levothyroxine and rest of her home medications - Adequate pain control - Trend lactate - Obtain records for recent vascular procedure and creatinine in month of April
[2017-05-28 06:16] LABS: ABSOLUTE BASOPHIL COUNT 0 /CUMM (0.0-0.2); ABSOLUTE EOSINOPHIL COUNT 0.1 /CUMM (0.0-0.7); ABSOLUTE LYMPH COUNT 0.9 /CUMM (1.2-3.4); ABSOLUTE MONOCYTE COUNT 0.7 /CUMM (0.10-0.60); BASOPHIL % 0.1 % (0.0-2.0); EOSINOPHIL % 1.3 % (0-5); GRANULOCYTE % 80.1 % (42.2-75.2); MEAN CORPUSCULAR HGB 31.6 PG (27.0-31.0); MEAN CORPUSCULAR HGB CONC 31.3 G/DL (33.0-37.0); MEAN CORPUSCULAR VOLUME 101.2 FL (81.0-99.0); MEAN PLATELET VOLUME 6.9 FL (7.4-10.4); PLATELET COUNT 261 /CUMM (130-400); RED BLOOD CELL CT 2.77 /CUMM (4.20-5.40); WHITE BLOOD CELL COUNT 8.8 /CUMM (4.8-10.8)
--- NOTE | 2017-05-28 10:24 | Cons- Cardiology ---
Bryson MELÉNDEZ,Alejandro 05/28/17 1023: General Information and HPI Consulting Request Date of Consult: 05/28/17 Requested By: Brett MELÉNDEZ,Yue Vogt Reason for Consult: Atrial fibrillation Source of Information: patient Exam Limitations: no limitations History of Present Illness: 86-year-old pleasant lady with past medical history significant for hypothyroidism, diabetes, paroxysmal A. fib, PVD status post external iliac vein stent, DVT now on a Eliquis, presents with one day history of acute gastroenteritis involving vomiting and diarrhea a few hours after consuming mayonaise rich sandwich. On Presentation, she was found to be tachycardic with heart rates of up to 110, an EKG obtained did show atrial fibrillation, not evident in the previous EKG in 2012 and 2016. Patient did not complain of any chest pain, palpitation or shortness of breath. Her laboratory workup was remarkable for leukocytosis with a left shift, and elevated creatinine. One is what trended x3 and were unremarkable He was admitted to telemetry for management of atrial fibrillation and acute gastritis. Cardiology was consulted regarding her atrial fibrillation. When seen today in the morning, patient does endorse a remote history of paroxysmal atrial fibrillation. Allergies/Medications Allergies: Coded Allergies: clarithromycin (From BIAXIN) (Severe, DIGESTIVE SHUTDOWN, TREMORS 05/27/17) acetaminophen (From ULTRACET) (DIGESTIVE PROBLEMS 05/27/17) amoxicillin (DIGESTIVE PROBLEMS 05/27/17) aspirin (From DARVON COMPOUND-65) (SEVERE VOMITING 05/27/17) berberine (LOOSE EXPLOSIVE BOWELS 05/27/17) caffeine (From DARVON COMPOUND-65) (SEVERE VOMITING 05/27/17) duloxetine (DIGESTIVE PROBLEMS 05/27/17) escitalopram (From LEXAPRO) (NAUSEA/DEPRESSION 05/27/17) fluconazole (From DIFLUCAN) (CONSTANT NAUSEA 05/27/17) fondaparinux (From ARIXTRA) (DIGESTIVE SHUTDOWN, TREMORS 05/27/17) gabapentin (From NEURONTIN) (DIGESTIVE PROBLEMS 05/27/17) hydromorphone (VERY POOR PAIN RELIEF 05/27/17) hyoscyamine (OPPOSITE EFFECTS 05/27/17) imipramine (NAUSEA/DEPRESSION 05/27/17) meperidine (VOMITING 05/27/17) metformin (NAUSEA, BLADDER LEAKAGE 05/27/17) oxychlorosene (GI DISTRESS 11/06/16) oxycodone (NAUSEA, TREMORS, GI UPSET 05/27/17) paroxetine (From PAXIL) (VAGINITIS MONILIASIS 05/27/17) propafenone (NAUSEA, INCONTINENCE, DIZZINESS, TREMORS, SLEEPINESS 05/27/17) propoxyphene (VOMITING 11/06/16) sertraline (From ZOLOFT) (DEPRESSION/NAUSEA 05/27/17) sotalol (NAUSEA, INCONTINENCE, DIZZINESS, TREMORS, SLEEPINESS 05/27/17) tizanidine (DIZZINESS, BLACK OUT, DISORIENTED 05/27/17) tramadol (DIGESTIVE SHUTDOWN, TREMORS 05/27/17) Uncoded Allergies: KELP (SEVERE CHEST PAIN 05/27/17) Home Med List: Acetaminophen 500 MG TABLET 1 TAB PO AD PAIN (Reported) Alpha Lipoic Acid 600 MG CAPSULE 1 CAP PO DAILY SUPPLEMENT (Reported) Apixaban (Eliquis) 5 MG TABLET 1 TAB PO BID BLOOD THINNER (Reported) [ARTICHOKE LEAF] 1 CAP PO DAILY SUPPLEMENT (Reported) Ascorbic Acid (Vitamin C) (Unknown Strength) CAPSULE (Unknown Dose) PO DAILY SUPPLEMENT (Reported) Biotin 1,000 MCG TAB.CHEW 1 TAB PO DAILY SUPPLEMENT (Reported) Cholecalciferol (Vitamin D3) (Vitamin D3) 5,000 UNIT TABLET 1 TAB PO DAILY VITAMIN SUPPORT (Reported) Chrm/Viridiana/ Bt-Org Peel/Gr T (Apple Cider Vinegar Plus Tb) (Unknown Strength) TABLET (Unknown Dose) PO DAILY SUPPLEMENT (Reported) Cider Vinegar (Apple Cider Vinegar) (Unknown Strength) TABLET (Unknown Dose) PO QHS PRN SUPPLEMENT (Reported) Cod Liver Oil 1 EACH CAPSULE 1 CAP PO DAILY SUPPLEMENT (Reported) Cyanocobalamin (Vitamin B-12) 1,000 MCG TABLET 1 TAB PO DAILY VITAMIN SUPPORT (Reported) Furosemide 20 MG TABLET 0.5 TAB PO DAILY WATER RETENTION (Reported) Gamma-Aminobutyric Acid (Aminobutyric Acid) 1 GM POWDER 500 MG PO DAILY SUPPLEMENT (Reported) Selene Root (Unknown Strength) CAPSULE (Unknown Dose) PO QHS PRN SUPPLEMENT ( Reported) Glipizide (Glipizide ER) 5 MG TAB.ER.24 1 TAB PO DAILY DIABETES (Reported) Hydrocodone/Acetaminophen (Hydrocodon-Acetaminophen 5-325) 5 MG-325 MG TABLET 1 TAB PO BID PAIN (Reported) [DILLAN'S LEG CRAMPS] 1 TAB PO PRN LEG CRAMPS - OTC (Reported) Lactobacillus Acidophilus (Probiotic) (Unknown Strength) CAPSULE (Unknown Dose ) PO DAILY SUPPLEMENT (Reported) Levothyroxine Sodium 75 MCG TABLET 1 TAB PO DAILY AC THYROID (Reported) Lidocaine 5 % ADH..PATCH 1 PAT TOP DAILY PAIN (Reported) Lorazepam (Ativan) 0.5 MG TABLET 1 TAB PO DAILY SLEEP/TREMORS/STOMACH PROBLEMS (Reported) Magnesium Oxide (Magnesium) 500 MG CAPSULE 1 CAP PO DAILY SUPPLEMENT ( Reported) Mirtazapine 7.5 MG TABLET 1 TAB PO QPM SLEEP/ANXIETY (Reported) Multivitamin With Minerals (Multivitamins With Minerals) 1 EACH TABLET 1 TAB PO DAILY VITAMIN SUPPORT (Reported) Om3/Dha/Epa/Cod Liver Oil/A/D3 (Cod Liver Oil Softgel) 240-1,000MG CAPSULE 1 CAP PO DAILY SUPPLEMENT (Reported) Potassium Gluconate (Potassium) 595 MG (99 MG) TABLET 1 TAB PO BID SUPPLEMENT (Reported) Prednisone 5 MG TABLET 1 TAB PO QAM ARTHRITIS (Reported) Sour Thompson Extract (Tart Thompson Extract) (Unknown Strength) CAPSULE (Unknown Dose) PO DAILY SUPPLEMENT (Reported) Ubidecarenone (Co Q-10) 100 MG CAPSULE 1 CAP PO DAILY SUPPLEMENT (Reported) Vitamin B Complex 1 EACH CAPSULE 1 CAP PO DAILY SUPPLEMENT (Reported) Past History Travel History Traveled to [place] past 21 day No Medical History Neurological: NONE EENT: NONE Cardiovascular: AFIB Respiratory: NONE Gastrointestinal: NONE Hepatic: NONE Renal: NONE Musculoskeletal: fibromyalgia Psychiatric: NONE Endocrine: diabetes, hyperthyroidism Blood Disorders: NONE Cancer(s): NONE 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 Surgical History Surgical History: appendectomy, cholecystectomy, Psychosocial History ETOH Use: denies use, 6 Illicit Drug Use: denies illicit drug use Exam & Diagnostic Data Vital Signs and I&O Vital Signs Date Time Temp Pulse Resp B/P B/P Pulse O2 O2 Flow FiO2 Mean Ox Delivery Rate 05/28 0909 97.6 94 20 132/78 95 Room Air 05/28 0609 97.3 83 16 128/72 95 Room Air 05/28 0109 98.1 94 18 120/70 98 Room Air 05/27 2205 98 20 132/64 99 Room Air 05/270 95 22 141/85 96 Room Air 05/27 2133 Room Air 05/27 2014 97.0 110 18 142/89 98 Room Air Intake & Output 05/28 0805/28 0000 05/27 0805/27 0000 Intake Total 360 2000 Output Total Balance 360 2000 Intake, IV 2000 Intake, Oral 360 Patient 88.451 kg Weight Weight Reported by Patient Measurement Method Physical Exam: GEN: Aox3, NAD Skin Temp/Moisture Exam: Warm/Dry Sepsis Skin Exam (color): Normal for Ethnicity HEENT Atraumatic, PERRLA, EOMI Neck Supple, NO JVD Cardiovascular Normal S1, Normal S2 Lungs Clear to Auscultation, Normal Air Movement Abdomen No Tenderness, Abdominal distension Labs/Jorge Results: Laboratory Tests 05/28 05/28 05/27 0610 0205 2216 Chemistry Sodium (137 - 145 mmol/L) 144 140 Potassium (3.5 - 5.1 mmol/L) 5.5 H 5.1 Chloride (98 - 107 mmol/L) 112 H 106 Carbon Dioxide (22 - 30 mmol/L) 23 23 Anion Gap (5 - 16) 9 11 BUN (7 - 17 mg/dL) 67 H 72 H Creatinine (0.5 - 1.0 mg/dL) 3.1 H 3.2 H Estimated GFR (>60 ml/min) 14 L 14 L BUN/Creatinine Ratio (7 - 25 %) 21.6 22.5 Glucose (65 - 99 mg/dL) 151 H Lactic Acid (0.7 - 2.1 mmol/L) 0.9 2.0 Calcium (8.4 - 10.2 mg/dL) 9.0 Total Bilirubin (0.2 - 1.3 mg/dL) 1.0 AST (14 - 36 U/L) 14 ALT (9 - 52 U/L) 31 Alkaline Phosphatase (<127 U/L) 42 Troponin I (< 0.11 ng/ml) < 0.01 < 0.01 Total Protein (6.3 - 8.2 g/dL) 5.3 L Albumin (3.5 - 5.0 g/dL) 3.1 L Globulin (1.9 - 4.2 gm/dL) 2.2 Albumin/Globulin Ratio (1.1 - 2.2 %) 1.4 Amylase (30 - 110 U/L) 31 Lipase (23 - 300 U/L) 50 TSH (0.270 - 4.200 uIU/mL) < 0.015 L Free T4 (0.85 - 1.93 ng/dL) 1.48 Total T3 (0.97 - 1.69 ng/mL) 0.66 L Hematology CBC w Diff NO MAN DIFF REQ WBC (4.8 - 10.8 /CUMM) 8.8 RBC (4.20 - 5.40 /CUMM) 2.77 L Hgb (12.0 - 16.0 G/DL) 8.8 L Hct (37 - 47 %) 28.0 L MCV (81.0 - 99.0 FL) 101.2 H MCH (27.0 - 31.0 PG) 31.6 H MCHC (33.0 - 37.0 G/DL) 31.3 L RDW (11.5 - 14.5 %) 16.0 H Plt Count (130 - 400 /CUMM) 261 MPV (7.4 - 10.4 FL) 6.9 L Gran % (42.2 - 75.2 %) 80.1 H Lymphocytes % (20.5 - 51.1 %) 10.7 L Monocytes % (1.7 - 9.3 %) 7.8 Eosinophils % (0 - 5 %) 1.3 Basophils % (0.0 - 2.0 %) 0.1 Absolute Granulocytes (1.4 - 6.5 /CUMM) 7.0 H Absolute Lymphocytes (1.2 - 3.4 /CUMM) 0.9 L Absolute Monocytes (0.10 - 0.60 /CUMM) 0.7 H Absolute Eosinophils (0.0 - 0.7 /CUMM) 0.1 Absolute Basophils (0.0 - 0.2 /CUMM) 0 05/28 2123 Hematology CBC w Diff NO MAN DIFF REQ WBC (4.8 - 10.8 /CUMM) 15.4 H RBC (4.20 - 5.40 /CUMM) 3.15 L Hgb (12.0 - 16.0 G/DL) 10.1 L Hct (37 - 47 %) 31.6 L MCV (81.0 - 99.0 FL) 100.3 H MCH (27.0 - 31.0 PG) 32.2 H MCHC (33.0 - 37.0 G/DL) 32.0 L RDW (11.5 - 14.5 %) 16.1 H Plt Count (130 - 400 /CUMM) 315 MPV (7.4 - 10.4 FL) 7.9 Gran % (42.2 - 75.2 %) 86.4 H Lymphocytes % (20.5 - 51.1 %) 3.0 L Monocytes % (1.7 - 9.3 %) 8.0 Eosinophils % (0 - 5 %) 0.9 Basophils % (0.0 - 2.0 %) 1.7 Absolute Granulocytes (1.4 - 6.5 /CUMM) 13.3 H Absolute Lymphocytes (1.2 - 3.4 /CUMM) 0.5 L Absolute Monocytes (0.10 - 0.60 /CUMM) 1.2 H Absolute Eosinophils (0.0 - 0.7 /CUMM) 0.1 Absolute Basophils (0.0 - 0.2 /CUMM) 0.3 Assessment/Plan Assessment/Plan 86-year- ladye with a past medical history of paroxysmal A. fib, peripheral vascular disease status post popliteal vein stent placement on the right leg complicated by DVT, diabetes, hypothyroidism, fibromyalgia, presents with rate controlled atrial fibrillation in the context of an acute gastroenteritis and laboratory findings of subclinical hypothyroidism from exogenous source. Impression * Atrial fibrillation, rate controlled with CHADVASC2 of greater than 2 warranting anticoagulation. This is not new onset, as patient has a history of paroxysmal A. fib.There seem to be 2 reversible factors that could have put the patient in atrial fibrillation these 2 factors are: acute gastroenteritis with possible infection and the exogenous levothyroxine dosing which is super optimal based on the depressed TSH. * Subclinical hypothyroidism * Hyperkalemia (mild). Most likley 2/2 to renal insufficiency * Acute gastritis * History of peripheral vascular disease as post external iliac vein stent in April 2017 * History of chronic diseases: Hypothyroidism, diabetes, fibromyalgia Plan Awaiting echocardiogram to evaluate for valvular disease and pulmonary pressures Agree with reducing levothyroxine dose in the context of tachycardia and atrial fibrillation in a subclinical hyperthyroidism patient Continue apixaban renally adjusted and age appropriate dose of 2.5 mg po bid Obtain magnesium levels and keep above 2. Management of chronic diseases per medical team Problem List: 1. Paroxysmal A-fib Consult Acknowledgment - Thank you for your consult request. Les Jones MD 05/28/172045: Assessment/Plan Consult Acknowledgment - Thank you for your consult request.
--- NOTE | 2017-05-28 10:36 | PN-Observation ---
Assessment/Plan Medical Assessment: 86 YO F non smoker with PMH of A.fib not on anticoagulation, DVT on eliquis, DM, PVD s/p stent placement, fibromyelgia and hypothyroidism was brought previously with chief complaint of nausea, vomiting and diarrhea for 2 days #Paroxysmal A. fib: -Monitor on telemetry Serial troponin EKG were negative which ruled out ACS -Echocardiogram in the morning Follow-up with cardiology recommendation Continue Eliquis 2.5 mg twice daily (renally adjusted dose) Acute gastroenteritis: Improving -SIRS criteria 2 out of 4 positive possibly due to acute gastroenteritis. Leucocytosis could be due to gastroenteritis and she has tachycardia in the setting of A.fib. -Possibly food poisoning as it started 2 hours after patient ate a sandwich. -Continue IV hydration with normal saline at the rate of 75 mL per hour. -Once nausea resolves when encourage p.o. intake -Antiemetic medication when necessary -Follow the stool studies Acute on chronic kidney injury: Currently his creatinine is 3.1 -Could be Precipitated by acute loss of fluid by gastroenteritis or due to contrast-induced kidney injury as patient got stent placement 3 weeks back. Patient's baseline creatinine is 1.4 but after that you don't have any creatinine level. Records were obtained from her vascular surgeon, her creatinine on 0 05/07 was 1.5, BUN 45, hemoglobin 10.6 -Gentle IV hydration. -Monitor input and output -Nephrology consult appreciated -Hold Lasix for now that can precipitate kidney injury. Hyperkalemia: Potassium today is 5.5 Continue IV fluid hydration Monitoring of BEP History of diabetes: -We will hold her home medication -Accu-Cheks -Insulin NovoLog according to sliding scale during hospital stay. History of fibromyalgia: -Continue home medications History of hypothyroidism: -Given her tachycardia will decrease levothyroxine to 50 MCG daily -TSH and free T4 2 Small ulcers on left lower extremity: Wound consult appreciated DVT prophylaxis: - mechanical and patient is already on Eliquis CODE STATUS: DNR/DNI Problem List: 1. Paroxysmal A-fib 2. Nausea & vomiting 3. JANNETH (acute kidney injury) 4. Diarrhea Subjective Follow-up For: Gastroenteritis Paroxysmal A. fib HPI on CKD Hyperkalemia Subjective: Patient was seen and examined at bedside, she denies any nausea or vomiting Review of Systems Constitutional: Reports: see HPI. Objective Last 24 Hrs of Vital Signs/I&O Vital Signs Date Time Temp Pulse Resp B/P B/P Pulse O2 O2 Flow FiO2 Mean Ox Delivery Rate 05/28 0909 97.6 94 20 132/78 95 Room Air 05/28 0609 97.3 83 16 128/72 95 Room Air 05/28 0109 98.1 94 18 120/70 98 Room Air 05/27 2205 98 20 132/64 99 Room Air 05/27 2200 95 22 141/85 96 Room Air 05/274 Room Air 05/27 2014 97.0 110 18 142/89 98 Room Air Intake & Output 05/28 1600 05/28 0800 05/28 0000 Intake Total 360 2000 Output Total Balance 360 2000 Intake, IV 2000 Intake, Oral 360 Patient 195 lb Weight Weight Reported by Patient Measurement Method Physical Exam General Appearance: Alert, Oriented X3, Cooperative, No Acute Distress HEENT: Atraumatic, PERRLA, EOMI, Mucous Membr. moist/pink Neck: Supple, No JVD Cardiovascular: Normal S1, Normal S2, No Murmurs Lungs: Clear to Auscultation, Normal Air Movement Abdomen: Normal Bowel Sounds, Soft, No Tenderness Neurological: Normal Speech, Strength at 5/5 X4 Ext, Normal Tone, Sensation Intact Extremities: No Clubbing, No Cyanosis, 2 small ulcers on the left LE , both legs in stocking for varicose veins Vascular: Normal Pulses
--- NOTE | 2017-05-28 13:34 | Cons- Nephrology ---
General Information and HPI Consulting Request Date of Consult: 05/28/17 Requested By: Yue West MD Reason for Consult: JANNETH Source of Information: patient, old records Exam Limitations: no limitations History of Present Illness: The patient is an 86-year-old woman with a past medical history most significant for stage III chronic kidney disease with baseline creatinine approximately 1.2- 1.4 - nonproteinuric, diabetes, peripheral vascular disease, A fib previously on anticoagulation, and recent diagnosis of a DVT placed on Eliquis who presents with 1 day of nausea, vomiting, diarrhea. The patient was in her usual state of health prior to approximately 1 month ago when she underwent a peripheral angiogram on 04/29. He was diagnosed with a DVT during this time and was placed on Eliquis. There may have been a thrombosis of the stent for which she required a repeat venogram on 05/11. Should note that there were no labs between her previous creatinine of 1.4 on 04/02 and now. She now comes in with 1 day of nausea vomiting and diarrhea. She's had poor by mouth intake obviously during this time. She denies any nonsteroidals during this time. On Presentation, blood pressure 142/89afebrile. Labs notable for white count 15.4, hemoglobin 10.1, creatinine 3.2, BUN 72, bicarbonate 23, potassium 5.1, lipase 50, albumin 3.1 with normal LFTs. She has gotten approximately 2.5 L of normal saline. Repeat SCr 3.1. Should note no peripheral eosinophilia. CT Imaging of kidneys noted to be unremarkable. The patient reports some urinary incontinence at baseline but does not feel like she is retaining any urine. No history of kidney stones. Thinks that there was a time when she may been put on nonsteroidals that she had a kidney issue but that was a long time ago. Not on RAAS inhibition. Allergies/Medications Allergies: Coded Allergies: clarithromycin (From BIAXIN) (Severe, DIGESTIVE SHUTDOWN, TREMORS 05/27/17) acetaminophen (From ULTRACET) (DIGESTIVE PROBLEMS 05/27/17) amoxicillin (DIGESTIVE PROBLEMS 05/27/17) aspirin (From DARVON COMPOUND-65) (SEVERE VOMITING 05/27/17) berberine (LOOSE EXPLOSIVE BOWELS 05/27/17) caffeine (From DARVON COMPOUND-65) (SEVERE VOMITING 05/27/17) duloxetine (DIGESTIVE PROBLEMS 05/27/17) escitalopram (From LEXAPRO) (NAUSEA/DEPRESSION 05/27/17) fluconazole (From DIFLUCAN) (CONSTANT NAUSEA 05/27/17) fondaparinux (From ARIXTRA) (DIGESTIVE SHUTDOWN, TREMORS 05/27/17) gabapentin (From NEURONTIN) (DIGESTIVE PROBLEMS 05/27/17) hydromorphone (VERY POOR PAIN RELIEF 05/27/17) hyoscyamine (OPPOSITE EFFECTS 05/27/17) imipramine (NAUSEA/DEPRESSION 05/27/17) meperidine (VOMITING 05/27/17) metformin (NAUSEA, BLADDER LEAKAGE 05/27/17) oxychlorosene (GI DISTRESS 11/06/16) oxycodone (NAUSEA, TREMORS, GI UPSET 05/27/17) paroxetine (From PAXIL) (VAGINITIS MONILIASIS 05/27/17) propafenone (NAUSEA, INCONTINENCE, DIZZINESS, TREMORS, SLEEPINESS 05/27/17) propoxyphene (VOMITING 11/06/16) sertraline (From ZOLOFT) (DEPRESSION/NAUSEA 05/27/17) sotalol (NAUSEA, INCONTINENCE, DIZZINESS, TREMORS, SLEEPINESS 05/27/17) tizanidine (DIZZINESS, BLACK OUT, DISORIENTED 05/27/17) tramadol (DIGESTIVE SHUTDOWN, TREMORS 05/27/17) Uncoded Allergies: KELP (SEVERE CHEST PAIN 05/27/17) Home Med List: Acetaminophen 500 MG TABLET 1 TAB PO AD PAIN (Reported) Alpha Lipoic Acid 600 MG CAPSULE 1 CAP PO DAILY SUPPLEMENT (Reported) Apixaban (Eliquis) 5 MG TABLET 1 TAB PO BID BLOOD THINNER (Reported) [ARTICHOKE LEAF] 1 CAP PO DAILY SUPPLEMENT (Reported) Ascorbic Acid (Vitamin C) (Unknown Strength) CAPSULE (Unknown Dose) PO DAILY SUPPLEMENT (Reported) Biotin 1,000 MCG TAB.CHEW 1 TAB PO DAILY SUPPLEMENT (Reported) Cholecalciferol (Vitamin D3) (Vitamin D3) 5,000 UNIT TABLET 1 TAB PO DAILY VITAMIN SUPPORT (Reported) Chrm/Viridiana/ Bt-Org Peel/Gr T (Apple Cider Vinegar Plus Tb) (Unknown Strength) TABLET (Unknown Dose) PO DAILY SUPPLEMENT (Reported) Cider Vinegar (Apple Cider Vinegar) (Unknown Strength) TABLET (Unknown Dose) PO QHS PRN SUPPLEMENT (Reported) Cod Liver Oil 1 EACH CAPSULE 1 CAP PO DAILY SUPPLEMENT (Reported) Cyanocobalamin (Vitamin B-12) 1,000 MCG TABLET 1 TAB PO DAILY VITAMIN SUPPORT (Reported) Furosemide 20 MG TABLET 0.5 TAB PO DAILY WATER RETENTION (Reported) Gamma-Aminobutyric Acid (Aminobutyric Acid) 1 GM POWDER 500 MG PO DAILY SUPPLEMENT (Reported) Selene Root (Unknown Strength) CAPSULE (Unknown Dose) PO QHS PRN SUPPLEMENT ( Reported) Glipizide (Glipizide ER) 5 MG TAB.ER.24 1 TAB PO DAILY DIABETES (Reported) Hydrocodone/Acetaminophen (Hydrocodon-Acetaminophen 5-325) 5 MG-325 MG TABLET 1 TAB PO BID PAIN (Reported) [DILLAN'S LEG CRAMPS] 1 TAB PO PRN LEG CRAMPS - OTC (Reported) Lactobacillus Acidophilus (Probiotic) (Unknown Strength) CAPSULE (Unknown Dose ) PO DAILY SUPPLEMENT (Reported) Levothyroxine Sodium 75 MCG TABLET 1 TAB PO DAILY AC THYROID (Reported) Lidocaine 5 % ADH..PATCH 1 PAT TOP DAILY PAIN (Reported) Lorazepam (Ativan) 0.5 MG TABLET 1 TAB PO DAILY SLEEP/TREMORS/STOMACH PROBLEMS (Reported) Magnesium Oxide (Magnesium) 500 MG CAPSULE 1 CAP PO DAILY SUPPLEMENT ( Reported) Mirtazapine 7.5 MG TABLET 1 TAB PO QPM SLEEP/ANXIETY (Reported) Multivitamin With Minerals (Multivitamins With Minerals) 1 EACH TABLET 1 TAB PO DAILY VITAMIN SUPPORT (Reported) Om3/Dha/Epa/Cod Liver Oil/A/D3 (Cod Liver Oil Softgel) 240-1,000MG CAPSULE 1 CAP PO DAILY SUPPLEMENT (Reported) Potassium Gluconate (Potassium) 595 MG (99 MG) TABLET 1 TAB PO BID SUPPLEMENT (Reported) Prednisone 5 MG TABLET 1 TAB PO QAM ARTHRITIS (Reported) Sour Thompson Extract (Tart Thompson Extract) (Unknown Strength) CAPSULE (Unknown Dose) PO DAILY SUPPLEMENT (Reported) Ubidecarenone (Co Q-10) 100 MG CAPSULE 1 CAP PO DAILY SUPPLEMENT (Reported) Vitamin B Complex 1 EACH CAPSULE 1 CAP PO DAILY SUPPLEMENT (Reported) Current Medications: Current Medications Sig/Rich Start time Last Medication Dose Route Stop Time Status Admin Apixaban 2.5 MG BID 05/28 2199 AC PO Apixaban 5 MG BID 05/28 0200 DC 05/28 PO 0205 Insulin Aspart 0 TIDAC 05/28 0800 AC 05/28 SC 1210 Levothyroxine Sodium 0.05 MG DAILY AC 05/29 0700 AC PO Levothyroxine Sodium 0.075 MG DAILY AC 05/28 0700 DC 05/28 PO 0606 Lorazepam 0.5 MG DAILY 05/28 1000 AC 05/28 PO 06/04 0959 0954 Lorazepam 0 .STK-MED ONE 05/28 0956 DC PO Mirtazapine 7.5 MG QPM 05/28 2200 AC PO Ondansetron HCl 4 MG Q6P PRN 05/28 0230 AC IV Ondansetron HCl 0 .STK-MED ONE 05/27 2157 DC .ROUTE Ondansetron HCl 4 MG ONCE ONE 05/27 2100 DC 05/27 IV 05/27 210 2200 Prednisone 5 MG DAILY 05/28 1000 AC 05/28 PO 0954 Prednisone 0 .STK-MED ONE 05/28 0955 DC PO Sodium Chloride 1,000 ML Q13H 05/28 0200 AC 05/28 IV 0210 Sodium Chloride 1,000 ML BOLUS ONE 05/27 2330 DC 05/27 IV 05/28 0029 2330 Sodium Chloride 500 ML BOLUS ONE 05/27 2100 DC 05/27 IV 05/27 215 213 Review of Systems Review of Systems: Complete 14 point ROS neg except as per HPI Past History Travel History Traveled to [place] past 21 day No Medical History Neurological: NONE EENT: NONE Cardiovascular: AFIB Respiratory: NONE Gastrointestinal: NONE Hepatic: NONE Renal: NONE Musculoskeletal: fibromyalgia Psychiatric: NONE Endocrine: diabetes, hyperthyroidism Blood Disorders: NONE Cancer(s): NONE 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: 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 Surgical History Surgical History: appendectomy, cholecystectomy, Psychosocial History ETOH Use: denies use, 6 Illicit Drug Use: denies illicit drug use Exam & Diagnostic Data Vital Signs and I&O Vital Signs Date Time Temp Pulse Resp B/P B/P Pulse O2 O2 Flow FiO2 Mean Ox Delivery Rate 05/28 09 97.6 94 20 132/78 95 Room Air 05/28 0609 97.3 83 16 128/72 95 Room Air 05/28 0109 98.1 94 18 120/70 98 Room Air 05/27 2204 98 20 132/64 99 Room Air 05/27 2199 95 22 141/85 96 Room Air 05/274 Room Air 05/27 2014 97.0 110 18 142/89 98 Room Air Intake & Output 05/28 0400 05/27 040 Intake Total 360 2000 Output Total Balance 360 2000 Intake, IV 2000 Intake, Oral 360 Patient 195 lb Weight Weight Reported by Patient Measurement Method Physical Exam: Gen - ok appearing Head - NCAT Eyes - anicteric sclera, EOMI Neck - supple, no LAD CV - RRR, no m/r/g Chest - clear, no w/r/r Abd - soft, NTND Upper ext - warm, no edema Lower ext - warm, no edema Skin - no rash or jaundice Neuro - AOX3, grossly nonfocal Results Pertinent Lab Results: Laboratory Tests 05/28 05/28 05/27 0610 0205 2216 Chemistry Sodium (137 - 145 mmol/L) 144 140 Potassium (3.5 - 5.1 mmol/L) 5.5 H 5.1 Chloride (98 - 107 mmol/L) 112 H 106 Carbon Dioxide (22 - 30 mmol/L) 23 23 Anion Gap (5 - 16) 9 11 BUN (7 - 17 mg/dL) 67 H 72 H Creatinine (0.5 - 1.0 mg/dL) 3.1 H 3.2 H Estimated GFR (>60 ml/min) 14 L 14 L BUN/Creatinine Ratio (7 - 25 %) 21.6 22.5 Glucose (65 - 99 mg/dL) 151 H Lactic Acid (0.7 - 2.1 mmol/L) 0.9 2.0 Calcium (8.4 - 10.2 mg/dL) 9.0 Total Bilirubin (0.2 - 1.3 mg/dL) 1.0 AST (14 - 36 U/L) 14 ALT (9 - 52 U/L) 31 Alkaline Phosphatase (<127 U/L) 42 Troponin I (< 0.11 ng/ml) < 0.01 < 0.01 Total Protein (6.3 - 8.2 g/dL) 5.3 L Albumin (3.5 - 5.0 g/dL) 3.1 L Globulin (1.9 - 4.2 gm/dL) 2.2 Albumin/Globulin Ratio (1.1 - 2.2 %) 1.4 Amylase (30 - 110 U/L) 31 Lipase (23 - 300 U/L) 50 TSH (0.270 - 4.200 uIU/mL) < 0.015 L Free T4 (0.85 - 1.93 ng/dL) 1.48 Total T3 (0.97 - 1.69 ng/mL) 0.66 L Hematology CBC w Diff NO MAN DIFF REQ WBC (4.8 - 10.8 /CUMM) 8.8 RBC (4.20 - 5.40 /CUMM) 2.77 L Hgb (12.0 - 16.0 G/DL) 8.8 L Hct (37 - 47 %) 28.0 L MCV (81.0 - 99.0 FL) 101.2 H MCH (27.0 - 31.0 PG) 31.6 H MCHC (33.0 - 37.0 G/DL) 31.3 L RDW (11.5 - 14.5 %) 16.0 H Plt Count (130 - 400 /CUMM) 261 MPV (7.4 - 10.4 FL) 6.9 L Gran % (42.2 - 75.2 %) 80.1 H Lymphocytes % (20.5 - 51.1 %) 10.7 L Monocytes % (1.7 - 9.3 %) 7.8 Eosinophils % (0 - 5 %) 1.3 Basophils % (0.0 - 2.0 %) 0.1 Absolute Granulocytes (1.4 - 6.5 /CUMM) 7.0 H Absolute Lymphocytes (1.2 - 3.4 /CUMM) 0.9 L Absolute Monocytes (0.10 - 0.60 /CUMM) 0.7 H Absolute Eosinophils (0.0 - 0.7 /CUMM) 0.1 Absolute Basophils (0.0 - 0.2 /CUMM) 0 05/28 2123 Hematology CBC w Diff NO MAN DIFF REQ WBC (4.8 - 10.8 /CUMM) 15.4 H RBC (4.20 - 5.40 /CUMM) 3.15 L Hgb (12.0 - 16.0 G/DL) 10.1 L Hct (37 - 47 %) 31.6 L MCV (81.0 - 99.0 FL) 100.3 H MCH (27.0 - 31.0 PG) 32.2 H MCHC (33.0 - 37.0 G/DL) 32.0 L RDW (11.5 - 14.5 %) 16.1 H Plt Count (130 - 400 /CUMM) 315 MPV (7.4 - 10.4 FL) 7.9 Gran % (42.2 - 75.2 %) 86.4 H Lymphocytes % (20.5 - 51.1 %) 3.0 L Monocytes % (1.7 - 9.3 %) 8.0 Eosinophils % (0 - 5 %) 0.9 Basophils % (0.0 - 2.0 %) 1.7 Absolute Granulocytes (1.4 - 6.5 /CUMM) 13.3 H Absolute Lymphocytes (1.2 - 3.4 /CUMM) 0.5 L Absolute Monocytes (0.10 - 0.60 /CUMM) 1.2 H Absolute Eosinophils (0.0 - 0.7 /CUMM) 0.1 Absolute Basophils (0.0 - 0.2 /CUMM) 0.3 Imaging/Other Studies: XAM TYPE: CAT - CT ABD & PELVIS W/O IV CONTRAS EXAMINATION: CT ABDOMEN AND PELVIS WITHOUT CONTRAST CLINICAL INFORMATION: Abdominal pain, nausea and vomiting. COMPARISON: 11/06/2016. TECHNIQUE: Multidetector volumetric imaging was performed from the superior aspect of the liver through the pubic symphysis. Sagittal and coronal reformatted images were obtained on the technologist's workstation. DLP: 615 mGy-cm FINDINGS: LUNG BASES: Trace right pleural effusion and basilar atelectasis. LIVER, GALLBLADDER, AND BILIARY TREE: The unenhanced liver is normal in size, shape, and attenuation. No focal hepatic lesion or biliary ductal dilatation is present. The gallbladder is absent. PANCREAS: Unremarkable. SPLEEN: Unremarkable. ADRENAL GLANDS: Unremarkable. KIDNEYS AND URETERS: The kidneys are normal in size, shape, and attenuation. No hydronephrosis, hydroureter, or calculi seen. No perinephric stranding. BLADDER: Unremarkable. GASTROINTESTINAL TRACT: Extensive sigmoid diverticulosis. No focal inflammatory process or obstruction. There is a 4 cm duodenal diverticulum. ABDOMINAL WALL: Ventral hernia repair mesh in place and intact. LYMPH NODES: Normal. VASCULAR: Interval placement of a right external iliac vein stent. Diffuse atherosclerosis. PELVIC VISCERA: Unremarkable. OSSEOUS STRUCTURES: Osteopenia and postsurgical changes with no acute abnormality. There is band of attenuation in the subcutaneous fat lateral to the right greater trochanter which may represent a contusion/hematoma. IMPRESSION: Sigmoid diverticulosis. No focal inflammatory process or obstruction. Trace right pleural effusion and basilar atelectasis. Assessment/Plan Assessment/Recommendations Assessment: Stage III CKD - nonproteinuric - likely related to vascular disease and age related changes although cannot exclude diabetic nephropathy which can be non- proteinuric. She should be screened for paraprotein kidney disease. JANNETH - Likely 2/2 pre-renal azotemia from volume depletion although cannot exclude ischemic ATN. DDx also includes injury from multiple contrast studies ( no available labs for my review since that time) and cholesterol emboli which can occur after instrumentation but may be associated with a peripheral eosinophilia or rash. Recommendations: -Cont IVF resuscitation - would switch to LR - 100cc/hr - until taking in PO -Check urine sodium, creatinine -Check C3, C4 -Check Urine protein, urine creatinine -Check SPEP, UPEP, KLFLC Please call [phone] with ?'s
--- NOTE | 2017-05-28 14:19 | PN- Att Addend ---
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 Will try to get her records from [facility] surgery/PCP and [facility]. UTI- start on keflex for 3 days. N/V/ Diarrhea- reoslvong. F/u clinically and cont iv hydration for now. Paroxysmal Afib- Cardiology consult - f/u on echo resluts. Hypothyroidism- suppressed TSH, decrease levo to 50mcg qd. d/w pt the care plan.
--- NOTE | 2017-05-28 20:35 | ECHOCARDIOGRAM REPORT ---
ANGE ESQUIVEL Age: 86 : 1930 Gender: F Exam Date: 05/28/2017 10:01 Exam Location: ER Ht (in): 62 Wt (lb): 195 BSA: 2.01 BP: 128 / 72 Ordering Physician: Jennifer Desir MD Referring Physician: Jennifer Desir MD Technologist: Marcus Otto LIBIA Room Number: 2 Indications: AFIB/FLUTTER Rhythm: Atrial fibrillation Technical Quality: Fair, Technically difficult study FINDINGS Left Ventricle Normal size left ventricle. Normal left ventricular ejection fraction estimated at 65-70%. Abnormal septal motion. Right Ventricle Right ventricle not well visualized, grossly normal. Right Atrium Normal right atrial size. Left Atrium Mild to moderate left atrial dilatation. Mitral Valve Mitral valve thickened. Trace mitral regurgitation. Aortic Valve Trileaflet aortic valve. Diffuse thickening (sclerosis) of the aortic valve cusps without reduced excursion. No aortic stenosis. No aortic regurgitation. Tricuspid Valve Tricuspid valve not well visualized. Yvvn-vl-nrwltxvv tricuspid regurgitation. Right ventricular systolic pressure estimated to be elevated at 60 mmHg. Pulmonic Valve Pulmonic valve not well visualized. Trace pulmonic regurgitation. Pericardium Small pericardial effusion. Great Vessels Aortic root and proximal ascending aorta not well visualized, grossly normal. CONCLUSIONS 1. This was a technically difficult examination. 2. Mild to moderate aortic sclerosis is present with no valvular stenosis or insufficiency. 3. Mitral leaflet thickening is present with minimal mitral insufficiency and mild to moderate left atrial enlargement. 4. A small pericardial effusion is present which is hemodynamically insignificant. 5. The left ventricular chamber size and systolic function appear normal. Flattening of the interventricular septum is present consistent with the presence of pulmonary hypertension. 6. The right heart structures were not optimally assessed. Dilatation of the IVC is present. Mild to moderate tricuspid insufficiency is present with minimal pulmonic insufficiency and significant pulmonary hypertension with an estimated RV systolic pressure of at least 60 mmHg. 7. A left ventricular apical false tendon is present. Arcadio Jones M.D. (Electronically Signed) Final Date: 28 May 2017 20:34 MEASUREMENTS (Male / Female) Normal Values 2D ECHO LV Diastolic Diameter PLAX 4.1 cm 4.2 - 5.9 / 3.9 - 5.3 cm LV Systolic Diameter PLAX 2.1 cm 2.1 - 4.0 cm LV Fractional Shortening PLAX 48.8 % 25 - 46 % LV Ejection Fraction 2D Teich 80.6 % IVS Diastolic Thickness 1.1 cm LVPW Diastolic Thickness 1.1 cm LV Relative Wall Thickness 0.5 RV Internal Dim ED PLAX 3.4 cm 1.9 - 3.8 cm LVOT Diameter 1.9 cm Aortic Root Diameter 2.4 cm LA Systolic Diameter LX 4.2 cm 3.0 - 4.0 / 2.7 - 3.8 cm LA Volume 57.0 cm 18 - 58 / 22 - 52 cm Ascending Aorta Diameter 2.6 cm DOPPLER AV Peak Velocity 141.0 cm/s AV Peak Gradient 8.0 mmHg AV Mean Velocity 95.2 cm/s AV Mean Gradient 4.0 mmHg AV Velocity Time Integral 30.6 cm LVOT Peak Velocity 75.2 cm/s LVOT Peak Gradient 2.3 mmHg LVOT Mean Velocity 56.2 cm/s LVOT Mean Gradient 1.0 mmHg LVOT Velocity Time Integral 17.4 cm LVOT Stroke Volume 49.3 cm AV Area Cont Eq vti 1.6 cm AV Area Cont Eq pk 1.5 cm MV Peak Velocity 186.0 cm/s MV Peak Gradient 13.8 mmHg MV Mean Velocity 78.4 cm/s MV Mean Gradient 3.0 mmHg Mitral E Point Velocity 164.0 cm/s Mitral A Point Velocity 42.4 cm/s Mitral E to A Ratio 3.9 MV PHT Velocity 179.0 cm/s MV Deceleration Stutsman 900.0 cm/s MV Pressure Half Time 59.7 ms MV Area PHT 3.7 cm MV Deceleration Time 204.0 ms TR Peak Velocity 365.0 cm/s TR Peak Gradient 53.3 mmHg Right Atrial Pressure 5.0 mmHg Pulmonary Artery Systolic Pressu 58.3 mmHg Right Ventricular Systolic Press 58.3 mmHg PV Peak Velocity 95.1 cm/s PV Peak Gradient 3.6 mmHg PV Mean Velocity 66.0 cm/s PV Mean Gradient 2.0 mmHg PV Velocity Time Integral 19.7 cm
[2017-05-28 22:52] VITALS: BP 132/78
[2017-05-29 07:00] VITALS: BP 140/78
--- NOTE | 2017-05-29 08:38 | PN- Housestaff ---
Subjective Follow-up For: Paroxysmal A. fib Acute gastroenteritis Acute on chronic kidney injury Hx of DM, Fibromyalgia, Hypothyroidism Tele-Events Since Last Visit: A-fib 75-109 Subjective: No overnight event. Patient had no specific complaint besides not being able to sleep well however without signs of CP/Fever/SOB/Ab pain. Denied diarrhea overnight. Review of Systems Constitutional: Reports: see HPI. Objective Last 24 Hrs of Vital Signs/I&O Vital Signs Date Time Temp Pulse Resp B/P B/P Pulse O2 O2 Flow FiO2 Mean Ox Delivery Rate 05/29 0700 98.3 86 19 140/78 93 Room Air 05/28 2252 98.2 78 20 132/78 95 05/28 1629 97.2 88 20 140/72 94 05/28 1409 97.8 88 20 130/76 95 Room Air Intake & Output 05/29 1600 05/29 0800 05/29 0000 Intake Total 900 700 Output Total Balance 900 700 Intake, IV 800 400 Intake, Oral 100 300 Number 0 Bowel Movements Patient 90.718 kg Weight Physical Exam General Appearance: Alert, Oriented X3, Cooperative, No Acute Distress Cardiovascular: Irregular, non-tachy Lungs: Clear to Auscultation, Normal Air Movement Abdomen: Soft, No Tenderness Neurological: Normal Speech Extremities: No Edema, Normal Pulses, In compressing stokcing Current Medications: Current Medications Sig/Rich Start time Last Medication Dose Route Stop Time Status Admin Apixaban 2.5 MG BID 05/28 2199 AC 05/29 PO 0755 Heparin Sodium 2,889 UNIT BOLUS ONE 05/29 0200 CAN (Porcine) IV 05/29 0600 Insulin Aspart 0 TIDAC 05/28 0800 AC 05/29 SC 1222 Lactated Ringer's 1,000 ML .Q10H 05/28 1345 DC 05/29 IV 05/29 0944 0142 Levothyroxine Sodium 0.05 MG DAILY AC 05/29 0700 AC 05/29 PO 0613 Lorazepam 0.5 MG DAILY 05/28 1000 AC 05/29 PO 06/04 0959 0952 Mirtazapine 7.5 MG QPM 05/28 2200 AC 05/28 PO 2151 Ondansetron HCl 4 MG Q6P PRN 05/28 0230 AC IV Prednisone 5 MG DAILY 05/28 1000 AC 05/29 PO 0755 Sodium Chloride 1,000 ML Q13H 05/28 0200 DC 05/28 IV 0210 Last 24 Hrs of Lab/Jorge Results Last 24 Hrs of Labs/Mics: Laboratory Tests 05/29/17 1218: CBC w Diff Pending, WBC Pending, RBC Pending, Hgb Pending, Hct Pending, MCV Pending, MCH Pending, MCHC Pending, RDW Pending, Plt Count Pending, MPV Pending 05/28/17 2250: Ur Creatinine 24 Hour Cancelled, Ur Total Protein 24 Hr Cancelled, Protein/Creat Ratio 24h Cancelled, U Protein Electrophores Cancelled, Urine Albumin (%) Cancelled, U Ciztt-0-Bcokpium Cancelled, U Thzdk-6-Agwypbgj Cancelled, U Beta Globulin Cancelled, U Gamma Globulin Cancelled, U Abnormal Prot Band 1 Cancelled , U Abnormal Prot Band 2 Cancelled, U Abnormal Prot Band 3 Cancelled 05/28/170: Ur Random Creatinine 60.1, U Random Total Protein 27 H, Ur Random Sodium 77, Ur Random Potassium 36.5, Fraction Sodium Excret 2.7 H 05/28/170: Anion Gap 9, Estimated GFR 15 L, BUN/Creatinine Ratio 19.7 05/28/172109: Prot Electrophoresis Pending, Total Protein (PEP) Pending, Albumin % (PEP) Pending, Hlzxi-3-Lhedpekbs Pending, Mromt-0-Brdoobuwi Pending, Hevz-3-Isignxdb Pending, Milu-4-Eeggnbvg Pending, Gamma Globulins Pending, Abnorm Protein Band 1 Pending, Abnorm Protein Band 2 Pending, Abnorm Protein Band 3 Pending, Complement C3 Pending, Complement C4 Pending, Ref Lab Test Result Pending Assessment/Plan Problem List: 1. Paroxysmal A-fib 2. Mupqi-za-aswerlg kidney injury 3. Acute gastroenteritis Pain Ratin Pain Location: NA Pain Goal: Remain pain free Pain Plan: see AP
--- NOTE | 2017-05-29 12:42 | PN-Observation ---
See Addendum Observation Note Observation Note _ I have personally examined ANGE ESQUIVEL. her disposition is uncertain at this time. Before a determination can be made, she requires continued observation for the following reasons [Acute gastroenteritis]. Assessment/Plan Medical Assessment: 86 YO F non smoker with PMH of A.fib not on anticoagulation, DVT on eliquis, DM, PVD s/p stent placement, fibromyelgia and hypothyroidism was brought previously with chief complaint of nausea, vomiting and diarrhea since yesterday afternoon. We will admit the patient on telemetry floor as patient developed paroxysmal A. fib due to stress secondary to acute gastroenteritis. Paroxysmal A. fib: -We will monitor her on telemetry floor for worsening of any arrhythmias or acute myocardial injury that's precipitating her A. fib. -Trops/EKG negative -Echocardiogram 1. This was a technically difficult examination. 2. Mild to moderate aortic sclerosis is present with no valvular stenosis or insufficiency. 3. Mitral leaflet thickening is present with minimal mitral insufficiency and mild to moderate left atrial enlargement. 4. A small pericardial effusion is present which is hemodynamically insignificant. 5. The left ventricular chamber size and systolic function appear normal. Flattening of the interventricular septum is present consistent with the presence of pulmonary hypertension. 6. The right heart structures were not optimally assessed. Dilatation of the IVC is present. Mild to moderate tricuspid insufficiency is present with minimal pulmonic insufficiency and significant pulmonary hypertension with an estimated RV systolic pressure of at least 60 mmHg. 7. A left ventricular apical false tendon is present. -Consult cardiology recommended reducing levothyroxine dose in the context of tachycardia and atrial fibrillation in a subclinical hyperthyroidism patient, currently at 50mcg - Continue Apixaban at 2.5mg po bid, renally adjusted. Acute gastroenteritis: -SIRS criteria 2 out of 4 positive possibly due to acute gastroenteritis on admission. Leucocytosis could be due to gastroenteritis and she has tachycardia in the setting of A.fib. - Currently WBC resolved to 8.8. -No more diarrhea during hospital stay. -DCed IV and encourage oral intake. -Antiemetic medication when necessary -Follow the stool studies Acute on chronic kidney injury: -Could be Precipitated by acute loss of fluid by gastroenteritis or due to contrast-induced kidney injury as patient got stent placement 3 weeks back. Patient's baseline creatinine is 1.4 but after that you don't have any creatinine level. We will get record from primary care physician for her kidney function. -Monitor input and output -No nephrotoxic medications -Hold Lasix for now that can precipitate kidney injury. History of diabetes: -We will hold her home medication -Accu-Cheks -Insulin NovoLog according to sliding scale during hospital stay. History of fibromyalgia: -Continue home medications History of hypothyroidism: -Continue levothyroxine at 50mcg -TSH and free T4 DVT prophylaxis: - mechanical and patient is already on Eliquis CODE STATUS: DNR/DNI Problem List: 1. Paroxysmal A-fib 2. Cxkou-mg-cslkvqt kidney injury 3. Acute gastroenteritis Subjective Follow-up For: Paroxysmal A. fib Acute gastroenteritis Acute on chronic kidney injury Hx of DM, Fibromyalgia, Hypothyroidism Tele-Events Since Last Visit: A-fib 75-109 Subjective: No overnight event. Patient had no specific complaint besides not being able to sleep well however without signs of CP/Fever/SOB/Ab pain. Denied diarrhea overnight. Review of Systems Constitutional: Reports: see HPI. Objective Last 24 Hrs of Vital Signs/I&O Vital Signs Date Time Temp Pulse Resp B/P B/P Pulse O2 O2 Flow FiO2 Mean Ox Delivery Rate 05/29 0700 98.3 86 19 140/78 93 Room Air 05/28 2252 98.2 78 20 132/78 95 05/28 1629 97.2 88 20 140/72 94 05/28 1409 97.8 88 20 130/76 95 Room Air Intake & Output 05/29 1600 05/29 0800 05/29 0000 Intake Total 900 700 Output Total Balance 900 700 Intake, IV 800 400 Intake, Oral 100 300 Number 0 Bowel Movements Patient 90.718 kg Weight Physical Exam General Appearance: Alert, Oriented X3, Cooperative, No Acute Distress Cardiovascular: Irregular non-tachy Lungs: Clear to Auscultation, Normal Air Movement Abdomen: Soft, No Tenderness Neurological: Normal Speech Extremities: No Edema, Normal Pulses, In compression stocking. Current Medications: Current Medications Sig/Rich Start time Last Medication Dose Route Stop Time Status Admin Apixaban 2.5 MG BID 05/28 2200 AC 05/29 PO 0755 Heparin Sodium 2,889 UNIT BOLUS ONE 05/29 0200 CAN (Porcine) IV 05/29 0600 Insulin Aspart 0 TIDAC 05/28 0800 AC 05/29 SC 1222 Lactated Ringer's 1,000 ML .Q10H 05/28 1345 DC 05/29 IV 05/29 0944 0142 Levothyroxine Sodium 0.05 MG DAILY AC 05/29 0700 AC 05/29 PO 0613 Lorazepam 0.5 MG DAILY 05/28 1000 AC 05/29 PO 06/04 0959 0952 Mirtazapine 7.5 MG QPM 05/28 2200 AC 05/28 PO 2151 Ondansetron HCl 4 MG Q6P PRN 05/28 0230 AC IV Prednisone 5 MG DAILY 05/28 1000 AC 05/29 PO 0755 Sodium Chloride 1,000 ML Q13H 05/28 0200 DC 05/28 IV 0210 Last 24 Hrs of Labs/Mics: Laboratory Tests 05/29/17 1218: CBC w Diff Pending, WBC Pending, RBC Pending, Hgb Pending, Hct Pending, MCV Pending, MCH Pending, MCHC Pending, RDW Pending, Plt Count Pending, MPV Pending 05/28/17 2250: Ur Creatinine 24 Hour Cancelled, Ur Total Protein 24 Hr Cancelled, Protein/Creat Ratio 24h Cancelled, U Protein Electrophores Cancelled, Urine Albumin (%) Cancelled, U Ojsdr-2-Xuxuiysg Cancelled, U Npyus-6-Xvqunlnx Cancelled, U Beta Globulin Cancelled, U Gamma Globulin Cancelled, U Abnormal Prot Band 1 Cancelled , U Abnormal Prot Band 2 Cancelled, U Abnormal Prot Band 3 Cancelled 05/28/17 2250: Ur Random Creatinine 60.1, U Random Total Protein 27 H, Ur Random Sodium 77, Ur Random Potassium 36.5, Fraction Sodium Excret 2.7 H 05/28/170: Anion Gap 9, Estimated GFR 15 L, BUN/Creatinine Ratio 19.7 05/28/172109: Prot Electrophoresis Pending, Total Protein (PEP) Pending, Albumin % (PEP) Pending, Qhghm-9-Obhitewyk Pending, Thqtt-7-Zbbvrfxzy Pending, Gvnc-7-Rxxcgmng Pending, Hxim-1-Xklgyltb Pending, Gamma Globulins Pending, Abnorm Protein Band 1 Pending, Abnorm Protein Band 2 Pending, Abnorm Protein Band 3 Pending, Complement C3 Pending, Complement C4 Pending, Ref Lab Test Result Pending
[2017-05-29 13:04] LABS: ABSOLUTE BASOPHIL COUNT 0 /CUMM (0.0-0.2); ABSOLUTE EOSINOPHIL COUNT 0.1 /CUMM (0.0-0.7); ABSOLUTE GRANULOCYTE CT 7.7 /CUMM (1.4-6.5); ABSOLUTE LYMPH COUNT 0.5 /CUMM (1.2-3.4); ABSOLUTE MONOCYTE COUNT 0.5 /CUMM (0.10-0.60); BASOPHIL % 0 % (0.0-2.0); EOSINOPHIL % 0.8 % (0-5); HEMATOCRIT 26.8 % (37-47); MEAN CORPUSCULAR HGB 31.9 PG (27.0-31.0); MEAN CORPUSCULAR HGB CONC 31.4 G/DL (33.0-37.0); MEAN CORPUSCULAR VOLUME 101.3 FL (81.0-99.0); MEAN PLATELET VOLUME 7.9 FL (7.4-10.4); PLATELET COUNT 224 /CUMM (130-400); RBC DISTRIBUTION WIDTH 16.3 % (11.5-14.5); RED BLOOD CELL CT 2.64 /CUMM (4.20-5.40); WHITE BLOOD CELL COUNT 8.7 /CUMM (4.8-10.8)
[2017-05-29 15:37] VITALS: BP 138/70
--- NOTE | 2017-05-29 18:39 | PN- Cardiology ---
Subjective Subjective: Stable with no new issues overnight. Objective Vital Signs and I&Os Vital Signs Date Time Temp Pulse Resp B/P B/P Pulse O2 O2 Flow FiO2 Mean Ox Delivery Rate 05/29 1537 98.4 87 20 138/70 94 05/29 0700 98.3 86 19 140/78 93 Room Air 05/28 2252 98.2 78 20 132/78 95 Intake & Output 05/29 1600 05/29 0800 05/29 0000 05/28 1600 05/28 0800 05/28 0000 Intake Total 450 900 750 769 7745 Output Total Balance 450 900 491 724 6350 Intake, IV 802 182 3024 Intake, Oral 450 100 300 360 Number 0 Bowel Movements Patient 200 lb 195 lb Weight Weight Reported by Patient Measurement Method Physical Exam: GEN: Aox3, NAD Skin Temp/Moisture Exam: Warm/Dry Sepsis Skin Exam (color): Normal for Ethnicity HEENT Atraumatic, PERRLA, EOMI Neck Supple, NO JVD, carotid normal bilaterally Cardiovascular Normal S1, Normal S2, 1-2/6 systolic murmur Lungs Clear to Auscultation bilateraly Abdomen No Tenderness, Abdominal distension Current Medications: Current Medications Sig/Rich Start time Last Medication Dose Route Stop Time Status Admin Acetaminophen 500 MG QPM 05/29 2199 AC PO Apixaban 2.5 MG BID 05/29 220 AC PO Apixaban 2.5 MG BID 05/28 2200 DC 05/29 PO 0755 Heparin Sodium 2,889 UNIT BOLUS ONE 05/29 0200 CAN (Porcine) IV 05/29 0600 Insulin Aspart 0 TIDAC 05/28 0800 AC 05/29 SC 1648 Lactated Ringer's 1,000 ML ONCE ONE 05/29 1530 AC 05/29 IV 05/30 0129 1539 Lactated Ringer's 1,000 ML .Q10H 05/28 1345 DC 05/29 IV 05/29 0944 0142 Levothyroxine Sodium 0.05 MG DAILY AC 05/29 0700 AC 05/29 PO 0613 Lorazepam 0.5 MG DAILY 05/28 1000 AC 05/29 PO 06/04 0959 0952 Mirtazapine 7.5 MG QPM 05/28 2200 AC 05/28 PO 2151 Ondansetron HCl 4 MG Q6P PRN 05/28 0230 AC IV Prednisone 5 MG DAILY 05/28 1000 AC 05/29 PO 0755 Results Last 48 Hrs of Labs/Mics: Laboratory Tests 05/29/17 1330: Anion Gap 9, Estimated GFR 16 L, BUN/Creatinine Ratio 18.6 05/29/17 1218: CBC w Diff NO MAN DIFF REQ, RBC 2.64 L, MCV 101.3 H, MCH 31.9 H, MCHC 31.4 L , RDW 16.3 H, MPV 7.9, Gran % 88.0 H, Lymphocytes % 6.0 L, Monocytes % 5.2, Eosinophils % 0.8, Basophils % 0, Absolute Granulocytes 7.7 H, Absolute Lymphocytes 0.5 L, Absolute Monocytes 0.5, Absolute Eosinophils 0.1, Absolute Basophils 0 05/28/17 2250: Ur Creatinine 24 Hour Cancelled, Ur Total Protein 24 Hr Cancelled, Protein/Creat Ratio 24h Cancelled, U Protein Electrophores Cancelled, Urine Albumin (%) Cancelled, U Eshtu-9-Qsqctlcd Cancelled, U Yxjeg-7-Vrpwidtx Cancelled, U Beta Globulin Cancelled, U Gamma Globulin Cancelled, U Abnormal Prot Band 1 Cancelled , U Abnormal Prot Band 2 Cancelled, U Abnormal Prot Band 3 Cancelled 05/28/17 2250: Ur Random Creatinine 60.1, U Random Total Protein 27 H, Ur Random Sodium 77, Ur Random Potassium 36.5, Fraction Sodium Excret 2.7 H 05/28/170: Anion Gap 9, Estimated GFR 15 L, BUN/Creatinine Ratio 19.7 05/28/17 2110: Prot Electrophoresis Pending, Total Protein (PEP) Pending, Albumin % (PEP) Pending, Ucnwx-2-Yaxrkutnn Pending, Erclk-0-Ekyxvgzsg Pending, Liki-0-Qmpviiir Pending, Dhme-4-Pugvcquu Pending, Gamma Globulins Pending, Abnorm Protein Band 1 Pending, Abnorm Protein Band 2 Pending, Abnorm Protein Band 3 Pending, Complement C3 Pending, Complement C4 Pending, Ref Lab Test Result Pending 05/28/17 0610: Anion Gap 9, Estimated GFR 14 L, BUN/Creatinine Ratio 21.6, Magnesium 2.9 H, Troponin I < 0.01, CBC w Diff NO MAN DIFF REQ, RBC 2.77 L, MCV 101.2 H, MCH 31.6 H, MCHC 31.3 L, RDW 16.0 H, MPV 6.9 L, Gran % 80.1 H, Lymphocytes % 10.7 L, Monocytes % 7.8, Eosinophils % 1.3, Basophils % 0.1, Absolute Granulocytes 7.0 H, Absolute Lymphocytes 0.9 L, Absolute Monocytes 0.7 H, Absolute Eosinophils 0.1, Absolute Basophils 0 05/28/17 0205: Lactic Acid 0.9 05/27/17 2216: Anion Gap 11, Estimated GFR 14 L, BUN/Creatinine Ratio 22.5, Glucose 151 H, Lactic Acid 2.0, Calcium 9.0, Total Bilirubin 1.0, AST 14, ALT 31, Alkaline Phosphatase 42, Troponin I < 0.01, Total Protein 5.3 L, Albumin 3.1 L, Globulin 2.2, Albumin/Globulin Ratio 1.4, Amylase 31, Lipase 50, TSH < 0.015 L, Free T4 1.48, Total T3 0.66 L 05/27/172123: CBC w Diff NO MAN DIFF REQ, RBC 3.15 L, MCV 100.3 H, MCH 32.2 H, MCHC 32.0 L , RDW 16.1 H, MPV 7.9, Gran % 86.4 H, Lymphocytes % 3.0 L, Monocytes % 8.0, Eosinophils % 0.9, Basophils % 1.7, Absolute Granulocytes 13.3 H, Absolute Lymphocytes 0.5 L, Absolute Monocytes 1.2 H, Absolute Eosinophils 0.1, Absolute Basophils 0.3 Assessment/Plan Assessment/Plan Assessment: 1. Atrial fibrillation 2. Subclinical hypothyroidism 3. Hyperkalemia 4. Acute gastritis - improved 5. Peripheral venous disease with history of DVT on Eliquis. 6. Macrocytic anemia 7. CKD Recommendations: - COntinue current medication - COntinue ELiquis 2.5 BID - Advance diet as tolerated - OOB as tolerated - PT evaluation. Continue telemetry? Yes
[2017-05-29 23:00] VITALS: BP 142/86
[2017-05-30 06:00] VITALS: BP 152/82
[2017-05-30 07:42] LABS: ABSOLUTE BASOPHIL COUNT 0 /CUMM (0.0-0.2); ABSOLUTE EOSINOPHIL COUNT 0.2 /CUMM (0.0-0.7); ABSOLUTE GRANULOCYTE CT 6.7 /CUMM (1.4-6.5); ABSOLUTE LYMPH COUNT 1.1 /CUMM (1.2-3.4); ABSOLUTE MONOCYTE COUNT 0.6 /CUMM (0.10-0.60); BASOPHIL % 0.2 % (0.0-2.0); EOSINOPHIL % 2.4 % (0-5); HEMATOCRIT 27.3 % (37-47); MEAN CORPUSCULAR HGB 32.3 PG (27.0-31.0); MEAN PLATELET VOLUME 7.7 FL (7.4-10.4); PLATELET COUNT 209 /CUMM (130-400); RBC DISTRIBUTION WIDTH 15.4 % (11.5-14.5); RED BLOOD CELL CT 2.71 /CUMM (4.20-5.40); WHITE BLOOD CELL COUNT 8.7 /CUMM (4.8-10.8)
--- NOTE | 2017-05-30 07:55 | PN-Observation ---
Hiram MELÉNDEZ,Lyndsay 05/30/17 0755: Observation Note Observation Note _ I have personally examined ANGE ESQUIVEL. her disposition is uncertain at this time. Before a determination can be made, she requires continued observation for the following reasons [gastroenteritis and acute kidney injury]. Assessment/Plan Medical Assessment: 86 YO F non smoker with PMH of A.fib not on anticoagulation, DVT on eliquis, DM, PVD s/p stent placement, fibromyelgia and hypothyroidism was brought previously with chief complaint of nausea, vomiting and diarrhea since yesterday afternoon. -Echocardiogram 1. This was a technically difficult examination. 2. Mild to moderate aortic sclerosis is present with no valvular stenosis or insufficiency. 3. Mitral leaflet thickening is present with minimal mitral insufficiency and mild to moderate left atrial enlargement. 4. A small pericardial effusion is present which is hemodynamically insignificant. 5. The left ventricular chamber size and systolic function appear normal. Flattening of the interventricular septum is present consistent with the presence of pulmonary hypertension. 6. The right heart structures were not optimally assessed. Dilatation of the IVC is present. Mild to moderate tricuspid insufficiency is present with minimal pulmonic insufficiency and significant pulmonary hypertension with an estimated RV systolic pressure of at least 60 mmHg. 7. A left ventricular apical false tendon is present. Paroxysmal A. fib: -Continue to observe on telemetry -Trops/EKG negative -Continue levothyroxine 50 mEq daily - Continue Apixaban at 2.5mg po bid, renally adjusted. Acute gastroenteritis: Improved Leukocytosis resolved -No more diarrhea during hospital stay. -encourage oral intake. -Antiemetic medication when necessary -Follow the stool studies Acute on chronic kidney injury: Slowly improving -Could be Precipitated by acute loss of fluid by gastroenteritis or due to contrast-induced kidney injury as patient got stent placement 3 weeks back. Patient's baseline creatinine is 1.4 but after that you don't have any creatinine level. We will get record from primary care physician for her kidney function. -Monitor input and output -No nephrotoxic medications -Hold Lasix for now that can precipitate kidney injury. History of diabetes: Fingerstick glucose 156, 194, 233 -We will hold her home medication -Accu-Cheks -Insulin NovoLog according to sliding scale during hospital stay. History of fibromyalgia: -Continue home medications History of hypothyroidism: -Continue levothyroxine at 50mcg -TSH and free T4 DVT prophylaxis: - mechanical and patient is already on Eliquis CODE STATUS: DNR/DNI Problem List: 1. Paroxysmal A-fib 2. Pcuee-ed-aewzuoa kidney injury 3. Acute gastroenteritis Subjective Follow-up For: Paroxysmal A. fib Acute gastroenteritis Acute on chronic kidney injury Hx of DM, Fibromyalgia, Hypothyroidism Tele-Events Since Last Visit: Off telemetry Subjective: Patient was seen and examined at bedside, no overnight events, improved appetite , denies any complaints, kidney function is slowly improving currently of IV fluids Review of Systems Constitutional: Reports: see HPI. Objective Last 24 Hrs of Vital Signs/I&O Vital Signs Date Time Temp Pulse Resp B/P B/P Pulse O2 O2 Flow FiO2 Mean Ox Delivery Rate 05/30 0600 97.3 75 20 152/82 93 05/29 2300 98.4 76 20 142/86 95 05/29 1537 98.4 87 20 138/70 94 Intake & Output 05/30 1600 05/30 0800 05/30 0000 Intake Total 400 300 Output Total Balance 400 300 Intake, IV 300 200 Intake, Oral 100 100 Patient 205 lb Weight Weight Bed scale Measurement Method Physical Exam General Appearance: Alert, Oriented X3, Cooperative, No Acute Distress Skin: No Significant Lesion HEENT: Atraumatic, PERRLA, EOMI, Mucous Membr. moist/pink Neck: Supple, No JVD Cardiovascular: Normal S1, Normal S2, No Murmurs Lungs: Clear to Auscultation Abdomen: Normal Bowel Sounds, Soft, No Tenderness Neurological: Normal Speech, Strength at 5/5 X4 Ext, Normal Tone, Sensation Intact Extremities: No Clubbing, No Cyanosis, No Edema Vascular: Normal Pulses Cara Chavez MD 05/30/17 1057: Observation Note Observation Note _ I have personally examined ALVINANGE Padilla. her disposition is uncertain at this time. Before a determination can be made, she requires continued observation for the following reasons []. Addendum Addendum Patient seen and examined. Resting comfortably not in any distress. No issues overnight. No new complaints this morning. She reports regular appetite. Denies nausea vomiting. Denies further episodes of diarrhea. Denies chest pain or palpitations. No events on telemetry monitoring overnight. Labs reviewed. Problems: 1. Acute on chronic kidney disease stage III. 2. Chronic anemia 3. Atrial fibrillation; anticoagulation was stopped in the past. However this was resumed after she developed DVT. 4. Diabetes mellitus. 5. Peripheral vascular disease. 6. Low TSH. Plan: -Her creatinine improved slightly yesterday but is no different today. Nurses were having difficulty placing IV access and patient became frustrated. She did not receive IV hydration yesterday. Encourage oral intake. Please reattempt to place IV line. -Hemoglobin level appears stable. Please obtain stool guaiac. -Mobilize patient as tolerated. -Patient will remain in the hospital today as her creatinine remains above baseline. She will continue to require hydration and monitoring of her renal function. -She remains in atrial fibrillation but with controlled ventricular response. Tachycardia on presentation was likely due to volume depletion. Echocardiogram was also noted. She has a hemodynamically insignificant small pericardial effusion. She has pulmonary hypertension. Systolic function is normal. -Patient has markedly Decreased TSH level. Her Synthroid dose has been decreased. Repeat in 6 weeks Y[place] 05/31/17 1335: Objective Last 24 Hrs of Vital Signs/I&O Vital Signs Date Time Temp Pulse Resp B/P B/P Pulse O2 O2 Flow FiO2 Mean Ox Delivery Rate 05/31 0800 94 Room Air 05/31 0650 99.2 85 20 170/80 94 Room Air 05/30 2242 98.3 94 20 140/60 97 Room Air 05/30 1457 99.0 82 20 148/72 96 Room Air Intake & Output 05/31 1600 05/31 0800 05/31 0000 Intake Total 240 200 Output Total Balance 240 200 Intake, Oral 240 200 Patient 91.172 kg Weight Weight Bed scale Measurement Method Attending MD Review Statement Attending Statement Attending MD Statement: examined this patient, discuss w/resident/PA/[employer], agreed w/resident/PA/[employer], reviewed EMR data (avail), discussed w/nursing, discussed w/ case mgmt Attending Assessment/Plan: Pt will be dced home today. Pt randal need a repeat BMP done in 1 week and the results will be faxed to Pts PCP Dr Beard. Pt with contrant induced Kidney injury now recovering and cr is better at 2.5. d/w pt the care plan.
--- NOTE | 2017-05-30 09:34 | PN- Cardiology ---
Subjective Subjective: Stable today for cardiac perspective. He remains in atrial fibrillation. Rate controlled. Objective Vital Signs and I&Os Vital Signs Date Time Temp Pulse Resp B/P B/P Pulse O2 O2 Flow FiO2 Mean Ox Delivery Rate 05/30 0600 97.3 75 20 152/82 93 05/29 2300 98.4 76 20 142/86 95 05/29 1537 98.4 87 20 138/70 94 Intake & Output 05/30 1600 05/30 0800 05/30 0000 05/29 1600 05/29 0800 05/29 0000 Intake Total 400 300 450 900 700 Output Total Balance 400 300 450 900 700 Intake, IV 300 200 800 400 Intake, Oral 100 100 450 100 300 Number 0 Bowel Movements Patient 205 lb 200 lb Weight Weight Bed scale Measurement Method Physical Exam: GEN: Aox3, NAD Skin Temp/Moisture Exam: Warm/Dry Sepsis Skin Exam (color): Normal for Ethnicity HEENT Atraumatic, PERRLA, EOMI Neck Supple, NO JVD, carotid normal bilaterally Cardiovascular Normal S1, Normal S2, 1-2/6 systolic murmur Lungs Clear to Auscultation bilateraly Abdomen No Tenderness, Abdominal distension Current Medications: Current Medications Sig/Rich Start time Last Medication Dose Route Stop Time Status Admin Acetaminophen 500 MG QPM 05/29 2200 AC 05/29 PO 2232 Apixaban 2.5 MG BID 05/29 2200 AC 05/30 PO 0759 Apixaban 2.5 MG BID 05/28 2200 DC 05/29 PO 0755 Insulin Aspart 0 TIDAC 05/28 0800 AC 05/30 SC 0759 Lactated Ringer's 1,000 ML ONCE ONE 05/29 1530 DC 05/29 IV 05/30 0129 1539 Lactated Ringer's 1,000 ML .Q10H 05/28 1345 DC 05/29 IV 05/29 0944 0142 Levothyroxine Sodium 0.05 MG DAILY AC 05/29 0700 AC 05/30 PO 0642 Lorazepam 0.5 MG DAILY 05/28 1000 AC 05/29 PO 06/04 0959 0952 Mirtazapine 7.5 MG QPM 05/28 2200 AC 05/29 PO 2232 Ondansetron HCl 4 MG Q6P PRN 05/28 0230 AC IV Prednisone 5 MG DAILY 05/28 1000 AC 05/30 PO 0759 Results Last 48 Hrs of Labs/Mics: Laboratory Tests 05/30/17 0635: Anion Gap 9, Estimated GFR 16 L, BUN/Creatinine Ratio 17.1, CBC w Diff NO MAN DIFF REQ, RBC 2.71 L, MCV 101.0 H, MCH 32.3 H, MCHC 32.0 L, RDW 15.4 H, MPV 7.7, Gran % 77.0 H, Lymphocytes % 13.0 L, Monocytes % 7.4, Eosinophils % 2.4, Basophils % 0.2, Absolute Granulocytes 6.7 H, Absolute Lymphocytes 1.1 L, Absolute Monocytes 0.6, Absolute Eosinophils 0.2, Absolute Basophils 0 05/29/17 1330: Anion Gap 9, Estimated GFR 16 L, BUN/Creatinine Ratio 18.6 05/29/17 1218: CBC w Diff NO MAN DIFF REQ, RBC 2.64 L, MCV 101.3 H, MCH 31.9 H, MCHC 31.4 L , RDW 16.3 H, MPV 7.9, Gran % 88.0 H, Lymphocytes % 6.0 L, Monocytes % 5.2, Eosinophils % 0.8, Basophils % 0, Absolute Granulocytes 7.7 H, Absolute Lymphocytes 0.5 L, Absolute Monocytes 0.5, Absolute Eosinophils 0.1, Absolute Basophils 0 05/28/170: Ur Creatinine 24 Hour Cancelled, Ur Total Protein 24 Hr Cancelled, Protein/Creat Ratio 24h Cancelled, U Protein Electrophores Cancelled, Urine Albumin (%) Cancelled, U Ejojx-9-Talowrzi Cancelled, U Xavvl-7-Zwedmktu Cancelled, U Beta Globulin Cancelled, U Gamma Globulin Cancelled, U Abnormal Prot Band 1 Cancelled , U Abnormal Prot Band 2 Cancelled, U Abnormal Prot Band 3 Cancelled 05/28/17 2250: Ur Random Creatinine 60.1, U Random Total Protein 27 H, Ur Random Sodium 77, Ur Random Potassium 36.5, Fraction Sodium Excret 2.7 H 05/28/170: Anion Gap 9, Estimated GFR 15 L, BUN/Creatinine Ratio 19.7 05/28/172109: Prot Electrophoresis Pending, Total Protein (PEP) Pending, Albumin % (PEP) Pending, Ehcvs-8-Zaensyswc Pending, Mfwzg-4-Mjfhnowxc Pending, Oyxt-0-Coxygbly Pending, Snrh-3-Eesvgsmm Pending, Gamma Globulins Pending, Abnorm Protein Band 1 Pending, Abnorm Protein Band 2 Pending, Abnorm Protein Band 3 Pending, Complement C3 Pending, Complement C4 Pending, Ref Lab Test Result Pending Assessment/Plan Assessment/Plan Assessment: 1. Atrial fibrillation 2. Subclinical hypothyroidism 3. Hyperkalemia 4. Acute gastritis - improved 5. Peripheral venous disease with history of DVT on Eliquis. 6. Macrocytic anemia 7. Acute on chronic renal insufficiency Recommendations: - COntinue current medication - COntinue ELiquis 2.5 BID -Creatinine remains elevated, further evaluation as per the medical team - Advance diet as tolerated - OOB as tolerated - PT evaluation. Continue telemetry? Yes
[2017-05-30 14:57] VITALS: BP 148/72
[2017-05-30 22:42] VITALS: BP 140/60
[2017-05-31 06:50] VITALS: BP 170/80
--- NOTE | 2017-05-31 07:39 | PN- Housestaff ---
Subjective Follow-up For: Gastroenteritis Acute kidney injury-improving Tele-Events Since Last Visit: No overnight events Subjective: Patient was seen and examined at bedside, endorses chronic back pain, denies any nausea, vomiting, diarrhea or constipation Review of Systems Constitutional: Reports: see HPI. Objective Last 24 Hrs of Vital Signs/I&O Vital Signs Date Time Temp Pulse Resp B/P B/P Pulse O2 O2 Flow FiO2 Mean Ox Delivery Rate 05/31 0800 94 Room Air 05/31 0650 99.2 85 20 170/80 94 Room Air 05/30 2242 98.3 94 20 140/60 97 Room Air 05/30 1457 99.0 82 20 148/72 96 Room Air Intake & Output 05/31 1600 05/31 0800 05/31 0000 Intake Total 240 200 Output Total Balance 240 200 Intake, Oral 240 200 Patient 201 lb Weight Weight Bed scale Measurement Method Physical Exam General Appearance: Alert, Oriented X3, Cooperative, No Acute Distress HEENT: Atraumatic, PERRLA, EOMI, Mucous Membr. moist/pink Neck: Supple, No JVD Cardiovascular: Normal S1, Normal S2, No Murmurs Lungs: Clear to Auscultation Abdomen: Normal Bowel Sounds, Soft, No Tenderness Neurological: Normal Speech, Strength at 5/5 X4 Ext, Normal Tone, Sensation Intact Extremities: No Clubbing, No Cyanosis, No Edema Vascular: Normal Pulses Assessment/Plan Assessment: 86 YO F non smoker with PMH of A.fib not on anticoagulation, DVT on eliquis, DM, PVD s/p stent placement, fibromyelgia and hypothyroidism was brought previously with chief complaint of nausea, vomiting and diarrhea since yesterday afternoon. Paroxysmal A. fib: -Continue to observe on telemetry -Trops/EKG negative -Continue levothyroxine 50 mEq daily - Continue Apixaban at 2.5mg po bid, renally adjusted. Acute gastroenteritis: Improved Leukocytosis resolved -No more diarrhea during hospital stay. -encourage oral intake. -Antiemetic medication when necessary -Follow the stool studies Acute on chronic kidney injury: Slowly improving -Could be Precipitated by acute loss of fluid by gastroenteritis or due to contrast-induced kidney injury as patient got stent placement 3 weeks back. Patient's baseline creatinine is 1.4 but after that you don't have any creatinine level. We will get record from primary care physician for her kidney function. -Monitor input and output -No nephrotoxic medications -Hold Lasix for now that can precipitate kidney injury. History of diabetes: Fingerstick glucose 156, 194, 233 -We will hold her home medication -Accu-Cheks -Insulin NovoLog according to sliding scale during hospital stay. History of fibromyalgia: -Continue home medications History of hypothyroidism: -Continue levothyroxine at 50mcg -TSH and free T4 Pulmonary hypertension: Echo showed significant pulmonary hypertension with right ventricular systolic pressure of at least 60 mmHg. Patient is saturating at 95 at room air on denies any chest pain Pulmonary consult appreciated DVT prophylaxis: - mechanical and patient is already on Eliquis CODE STATUS: DNR/DNI Problem List: 1. Paroxysmal A-fib 2. Aaqvu-aj-mkimrbk kidney injury 3. Acute gastroenteritis Pain Ratin Pain Location: BACK Pain Goal: Pain 4 or less Pain Plan: PATHWAY Tomorrow's Labs & Rationales: CBC BEP DVT/Prophylaxis: mechanical, pharmacological
[2017-05-31 08:17] LABS: ABSOLUTE BASOPHIL COUNT 0 /CUMM (0.0-0.2); ABSOLUTE EOSINOPHIL COUNT 0.2 /CUMM (0.0-0.7); ABSOLUTE LYMPH COUNT 1.3 /CUMM (1.2-3.4); ABSOLUTE MONOCYTE COUNT 0.5 /CUMM (0.10-0.60); BASOPHIL % 0.3 % (0.0-2.0); GRANULOCYTE % 77.2 % (42.2-75.2); HEMATOCRIT 27.6 % (37-47); MEAN CORPUSCULAR HGB 32.3 PG (27.0-31.0); MEAN CORPUSCULAR VOLUME 100.9 FL (81.0-99.0); MEAN PLATELET VOLUME 7.9 FL (7.4-10.4); PLATELET COUNT 213 /CUMM (130-400); RBC DISTRIBUTION WIDTH 15.7 % (11.5-14.5); RED BLOOD CELL CT 2.74 /CUMM (4.20-5.40); WHITE BLOOD CELL COUNT 9.1 /CUMM (4.8-10.8)
--- NOTE | 2017-05-31 12:21 | PN- Cardiology ---
Subjective Subjective: Feeling well. No chest pain. No SOB. No palp. No N/V. Objective Vital Signs and I&Os Vital Signs Date Time Temp Pulse Resp B/P B/P Pulse O2 O2 Flow FiO2 Mean Ox Delivery Rate 05/31 1427 98.7 81 20 140/80 95 Room Air 05/31 0800 94 Room Air 05/31 0650 99.2 85 20 170/80 94 Room Air 05/30 2242 98.3 94 20 140/60 97 Room Air Intake & Output 05/31 1600 05/31 0800 05/31 0000 05/30 1600 05/30 0800 05/30 0000 Intake Total 240 200 480 400 300 Output Total Balance 240 200 480 400 300 Intake, IV 300 200 Intake, Oral 240 200 480 100 100 Number 1 Bowel Movements Patient 201 lb 205 lb 205 lb Weight Weight Bed scale Bed scale Bed scale Measurement Method Physical Exam: Gen: NAD HEENT: normal Lungs: clear to auscultation, normal resp. effort Heart: RRR, S1, S2, 1 / 6 systolic murmur Abdomen: Soft, nontender, no masses Extremities: No clubbing, cyanosis, or edema. Neuro: Alert and oriented x 3, cranial nerves intact Current Medications: Current Medications Sig/Rich Start time Last Medication Dose Route Stop Time Status Admin Acetaminophen 325 MG Q6P PRN 05/31 0745 AC 05/31 PO 0758 Acetaminophen 500 MG QPM 05/290 AC 05/30 PO 2203 Apixaban 2.5 MG BID 05/29 2199 AC 05/31 PO 0854 Insulin Aspart 0 TIDAC 05/28 0800 AC 05/31 SC 1237 Levothyroxine Sodium 0.05 MG DAILY AC 05/29 0700 AC 05/31 PO 0540 Lorazepam 0.5 MG DAILY 05/28 1000 AC 05/31 PO 06/04 0959 1024 Mirtazapine 7.5 MG QPM 05/28 2200 AC 05/30 PO 2202 Ondansetron HCl 4 MG Q6P PRN 05/28 0230 AC IV Prednisone 5 MG DAILY 05/28 1000 AC 05/31 PO 0855 Results Last 48 Hrs of Labs/Mics: Laboratory Tests 05/31/17 0617: Anion Gap 10, Estimated GFR 18 L, BUN/Creatinine Ratio 18.0, CBC w Diff NO MAN DIFF REQ, RBC 2.74 L, MCV 100.9 H, MCH 32.3 H, MCHC 32.0 L, RDW 15.7 H, MPV 7.9, Gran % 77.2 H, Lymphocytes % 14.5 L, Monocytes % 6.0, Eosinophils % 2.0, Basophils % 0.3, Absolute Granulocytes 7.0 H, Absolute Lymphocytes 1.3, Absolute Monocytes 0.5, Absolute Eosinophils 0.2, Absolute Basophils 0 05/30/17 0635: Anion Gap 9, Estimated GFR 16 L, BUN/Creatinine Ratio 17.1, CBC w Diff NO MAN DIFF REQ, RBC 2.71 L, MCV 101.0 H, MCH 32.3 H, MCHC 32.0 L, RDW 15.4 H, MPV 7.7, Gran % 77.0 H, Lymphocytes % 13.0 L, Monocytes % 7.4, Eosinophils % 2.4, Basophils % 0.2, Absolute Granulocytes 6.7 H, Absolute Lymphocytes 1.1 L, Absolute Monocytes 0.6, Absolute Eosinophils 0.2, Absolute Basophils 0 Assessment/Plan Assessment/Plan Assessment: 1. Atrial fibrillation 2. Subclinical hypothyroidism 3. Hyperkalemia 4. Acute gastritis - improved 5. Peripheral venous disease with history of DVT on Eliquis. 6. Macrocytic anemia 7. Acute on chronic renal insufficiency Plan: * Continue Eliquis * Continue to monitor * Cardiac status stable Continue telemetry? Yes
[2017-05-31 14:27] VITALS: BP 140/80
[2017-05-31] MEDS ORDERED: SYNTHROID50 MCG PO (14:53)
--- NOTE | 2017-05-31 14:54 | Patient Discharge Instructions ---
Discharge Instructions General Discharge Information You were seen/treated for: Gastroenteritis Acute kidney injury-improving Special Instructions: 1please follow-up with PCP in 1 week discharge 2please follow-up with tunnel heading inspector in 1 week of discharge 3please get BEP checked in 1 week discharge 4- please get your INR checked in 2 days and dose coumadin accordingly. Please keep the INR between 2-3. Diet Continue normal diet: Yes Activity Full Activity/No Limits: Yes Acute Coronary Syndrome Inclusion Criteria At DC or during hospital stay patient has or had the following: ACS DIAGNOSIS No Discharge Core Measures Meds if any: Prescribed or Continued at Discharge Meds if any: NOT Prescribed or Continued at Discharge Congestive Heart Failure Inclusion Criteria At DC or during hospital stay patient has or had the following: CHF DIAGNOSIS No Discharge Core Measures Meds if any: Prescribed or Continued at Discharge Meds if any: NOT Prescribed or Continued at Discharge Cerebrovascular accident Inclusion Criteria At DC or during hospital stay patient has or had the following: CVA/TIA Diagnosis No Discharge Core Measures Meds if any: Prescribed or Continued at Discharge Meds if any: NOT Prescribed or Continued at Discharge Venous thromboembolism Inclusion Criteria VTE Diagnosis Yes VTE Type Pulmonary Embolism VTE Confirmed by (Test) LUNG SCAN (V/Q) Discharge Core Measures - Per Current guidelines, there needs to be overlap - treatment for the first 5 days of Warfarin therapy. - If discharged on Warfarin prior to 5 days of - overlap therapy, the patient will need to be - assessed for post discharge needs including - *Post discharge parental anticoagulation - *Warfarin and/or parental anticoagulation education - *Follow up date to check INR post discharge At least 5 days overlap therapy as Inpatient Yes Meds if any: Prescribed or Continued at Discharge Warfarin Yes Overlap Therapy Yes Note: Overlap Therapy is Warfarin and Anticoagulant Meds if any: NOT Prescribed or Continued at Discharge
--- NOTE | 2017-05-31 15:55 | PN- Nephrology ---
Assessment/Plan Nephrology Assessment: Doing well. Cr down a bit. Agree with continuing to hold lasix. Doubt will be able to correct edema with diuretic. Given Pulm HTN main issue is right heart failure. Suggestion: . Subjective Subjective: Pt doing well. ECHO shows pulmonary HTN. Objective Vital Signs and I&Os F NAD 140/80 81 98.7 Lungs clear Cor RRR Abd soft Ext neg edema Results Pertinent Lab Results: Laboratory Tests 05/31 05/30 0617 0635 Chemistry Sodium (137 - 145 mmol/L) 142 141 Potassium (3.5 - 5.1 mmol/L) 4.7 4.9 Chloride (98 - 107 mmol/L) 110 H 108 H Carbon Dioxide (22 - 30 mmol/L) 22 24 Anion Gap (5 - 16) 10 9 BUN (7 - 17 mg/dL) 45 H 48 H Creatinine (0.5 - 1.0 mg/dL) 2.5 H 2.8 H Estimated GFR (>60 ml/min) 18 L 16 L BUN/Creatinine Ratio (7 - 25 %) 18.0 17.1 Hematology CBC w Diff NO MAN DIFF REQ NO MAN DIFF REQ WBC (4.8 - 10.8 /CUMM) 9.1 8.7 RBC (4.20 - 5.40 /CUMM) 2.74 L 2.71 L Hgb (12.0 - 16.0 G/DL) 8.8 L 8.8 L Hct (37 - 47 %) 27.6 L 27.3 L MCV (81.0 - 99.0 FL) 100.9 H 101.0 H MCH (27.0 - 31.0 PG) 32.3 H 32.3 H MCHC (33.0 - 37.0 G/DL) 32.0 L 32.0 L RDW (11.5 - 14.5 %) 15.7 H 15.4 H Plt Count (130 - 400 /CUMM) 213 209 MPV (7.4 - 10.4 FL) 7.9 7.7 Gran % (42.2 - 75.2 %) 77.2 H 77.0 H Lymphocytes % (20.5 - 51.1 %) 14.5 L 13.0 L Monocytes % (1.7 - 9.3 %) 6.0 7.4 Eosinophils % (0 - 5 %) 2.0 2.4 Basophils % (0.0 - 2.0 %) 0.3 0.2 Absolute Granulocytes (1.4 - 6.5 /CUMM) 7.0 H 6.7 H Absolute Lymphocytes (1.2 - 3.4 /CUMM) 1.3 1.1 L Absolute Monocytes (0.10 - 0.60 /CUMM) 0.5 0.6 Absolute Eosinophils (0.0 - 0.7 /CUMM) 0.2 0.2 Absolute Basophils (0.0 - 0.2 /CUMM) 0 0 05/29 05/29 03 1330 1218 2250 Chemistry Sodium (137 - 145 mmol/L) 139 Potassium (3.5 - 5.1 mmol/L) 5.1 Chloride (98 - 107 mmol/L) 107 Carbon Dioxide (22 - 30 mmol/L) 23 Anion Gap (5 - 16) 9 BUN (7 - 17 mg/dL) 52 H Creatinine (0.5 - 1.0 mg/dL) 2.8 H Estimated GFR (>60 ml/min) 16 L BUN/Creatinine Ratio (7 - 25 %) 18.6 Hematology CBC w Diff NO MAN DIFF REQ WBC (4.8 - 10.8 /CUMM) 8.7 RBC (4.20 - 5.40 /CUMM) 2.64 L Hgb (12.0 - 16.0 G/DL) 8.4 L Hct (37 - 47 %) 26.8 L MCV (81.0 - 99.0 FL) 101.3 H MCH (27.0 - 31.0 PG) 31.9 H MCHC (33.0 - 37.0 G/DL) 31.4 L RDW (11.5 - 14.5 %) 16.3 H Plt Count (130 - 400 /CUMM) 224 MPV (7.4 - 10.4 FL) 7.9 Gran % (42.2 - 75.2 %) 88.0 H Lymphocytes % (20.5 - 51.1 %) 6.0 L Monocytes % (1.7 - 9.3 %) 5.2 Eosinophils % (0 - 5 %) 0.8 Basophils % (0.0 - 2.0 %) 0 Absolute Granulocytes (1.4 - 6.5 /CUMM) 7.7 H Absolute Lymphocytes (1.2 - 3.4 /CUMM) 0.5 L Absolute Monocytes (0.10 - 0.60 /CUMM) 0.5 Absolute Eosinophils (0.0 - 0.7 /CUMM) 0.1 Absolute Basophils (0.0 - 0.2 /CUMM) 0 Urines Ur Creatinine 24 Hour Cancelled Ur Total Protein 24 Hr Cancelled Protein/Creat Ratio 24h Cancelled U Protein Electrophores Cancelled Urine Albumin (%) Cancelled U Uaqwc-2-Skcwovbn Cancelled U Vfglx-9-Rffqspmp Cancelled U Beta Globulin Cancelled U Gamma Globulin Cancelled U Abnormal Prot Band 1 Cancelled U Abnormal Prot Band 2 Cancelled U Abnormal Prot Band 3 Cancelled 05/28 05/28 05/28 2250 2110 2110 Chemistry Sodium (137 - 145 mmol/L) 141 Potassium (3.5 - 5.1 mmol/L) 5.4 H Chloride (98 - 107 mmol/L) 109 H Carbon Dioxide (22 - 30 mmol/L) 23 Anion Gap (5 - 16) 9 BUN (7 - 17 mg/dL) 59 H Creatinine (0.5 - 1.0 mg/dL) 3.0 H Estimated GFR (>60 ml/min) 15 L BUN/Creatinine Ratio (7 - 25 %) 19.7 Prot Electrophoresis Pending Total Protein (PEP) Pending Albumin % (PEP) Pending Ibwfo-6-Iagacelnf Pending Gfyfu-8-Lgrwodusk Pending Lnmv-6-Ufmvfztg Pending Xnpf-4-Ajwsawpi Pending Gamma Globulins Pending Abnorm Protein Band 1 Pending Abnorm Protein Band 2 Pending Abnorm Protein Band 3 Pending Immunology Complement C3 (() mg/dL) 118 Complement C4 (() mg/dL) 20 Miscellaneous Ref Lab Test Result (()) REPORT Urines Ur Random Creatinine (mg/dL) 60.1 U Random Total Protein (0 - 12 mg/dL) 27 H Ur Random Sodium (30 - 90 mmol/L) 77 Ur Random Potassium (mmol/L) 36.5 Fraction Sodium Excret (<1% %) 2.7 H
--- NOTE | 2017-05-31 16:16 | Cons- Pulmonary ---
General Information and HPI Consulting Request Date of Consult: 05/31/17 Requested By: Dr. Chavez Reason for Consult: Pulmonary hypertension Source of Information: patient, old records Exam Limitations: no limitations History of Present Illness: The patient is an 86-year-old female with no known past respiratory disease. She has a history of atrial fibrillation, previous DVT on chronic Eliquis (the patient denies any issues with medication noncompliance), diabetes, peripheral vascular disease status post stent placement, stage III chronic kidney disease, hypothyroidism and fibromyalgia. The patient was admitted on 05/28/2017 with complaints of nausea, vomiting and diarrhea following eating a cheese sandwich with mayonnaise. This was followed by 4 foul-smelling, nonbloody bowel movements along with vomiting. The patient also complained of diffuse cramping abdominal pain at the time of her symptoms. At the time of admission, the patient did not complain of significant shortness of breath. The patient was admitted to the telemetry floor in her GI symptoms were worked up. She was not found to have positive cultures or stool for C. difficile. She was believed to have possible acute gastroenteritis. The patient was worked up for her GI symptoms. She also underwent a nephrology consultation and was volume resuscitated for pre-renal azotemia due to volume depletion and possible ATN in the setting of contrast administration. Additional workup showed an echocardiogram with a right ventricular systolic pressure of at least 60 mmHg. Upon questioning the patient, she reports feeling shortness of breath when she has significant anxiety/stress. The patient notes that she cannot walk for any significant a moderate time or climb stairs due to lower extremity weakness and imbalance. She denies significant shortness of breath with mild exertion. She denies any cough, sputum production, wheezing, fever, chest pain or any other associated issues. She has not had any imaging of her chest reported on record at [facility]. Allergies/Medications Allergies: Coded Allergies: clarithromycin (From BIAXIN) (Severe, DIGESTIVE SHUTDOWN, TREMORS 05/27/17) acetaminophen (From ULTRACET) (DIGESTIVE PROBLEMS 05/27/17) amoxicillin (DIGESTIVE PROBLEMS 05/27/17) aspirin (From DARVON COMPOUND-65) (SEVERE VOMITING 05/27/17) berberine (LOOSE EXPLOSIVE BOWELS 05/27/17) caffeine (From DARVON COMPOUND-65) (SEVERE VOMITING 05/27/17) duloxetine (DIGESTIVE PROBLEMS 05/27/17) escitalopram (From LEXAPRO) (NAUSEA/DEPRESSION 05/27/17) fluconazole (From DIFLUCAN) (CONSTANT NAUSEA 05/27/17) fondaparinux (From ARIXTRA) (DIGESTIVE SHUTDOWN, TREMORS 05/27/17) gabapentin (From NEURONTIN) (DIGESTIVE PROBLEMS 05/27/17) hydromorphone (VERY POOR PAIN RELIEF 05/27/17) hyoscyamine (OPPOSITE EFFECTS 05/27/17) imipramine (NAUSEA/DEPRESSION 05/27/17) meperidine (VOMITING 05/27/17) metformin (NAUSEA, BLADDER LEAKAGE 05/27/17) oxychlorosene (GI DISTRESS 11/06/16) oxycodone (NAUSEA, TREMORS, GI UPSET 05/27/17) paroxetine (From PAXIL) (VAGINITIS MONILIASIS 05/27/17) propafenone (NAUSEA, INCONTINENCE, DIZZINESS, TREMORS, SLEEPINESS 05/27/17) propoxyphene (VOMITING 11/06/16) sertraline (From ZOLOFT) (DEPRESSION/NAUSEA 05/27/17) sotalol (NAUSEA, INCONTINENCE, DIZZINESS, TREMORS, SLEEPINESS 05/27/17) tizanidine (DIZZINESS, BLACK OUT, DISORIENTED 05/27/17) tramadol (DIGESTIVE SHUTDOWN, TREMORS 05/27/17) Uncoded Allergies: KELP (SEVERE CHEST PAIN 05/27/17) Home Med List: Acetaminophen 500 MG TABLET 1 TAB PO AD PAIN (Reported) Alpha Lipoic Acid 600 MG CAPSULE 1 CAP PO DAILY SUPPLEMENT (Reported) Apixaban (Eliquis) 5 MG TABLET 1 TAB PO BID BLOOD THINNER (Reported) [ARTICHOKE LEAF] 1 CAP PO DAILY SUPPLEMENT (Reported) Ascorbic Acid (Vitamin C) (Unknown Strength) CAPSULE (Unknown Dose) PO DAILY SUPPLEMENT (Reported) Biotin 1,000 MCG TAB.CHEW 1 TAB PO DAILY SUPPLEMENT (Reported) Cholecalciferol (Vitamin D3) (Vitamin D3) 5,000 UNIT TABLET 1 TAB PO DAILY VITAMIN SUPPORT (Reported) Chrtrever/Viridiana/ Bt-Org Peel/Gr T (Apple Cider Vinegar Plus Tb) (Unknown Strength) TABLET (Unknown Dose) PO DAILY SUPPLEMENT (Reported) Cider Vinegar (Apple Cider Vinegar) (Unknown Strength) TABLET (Unknown Dose) PO QHS PRN SUPPLEMENT (Reported) Cod Liver Oil 1 EACH CAPSULE 1 CAP PO DAILY SUPPLEMENT (Reported) Cyanocobalamin (Vitamin B-12) 1,000 MCG TABLET 1 TAB PO DAILY VITAMIN SUPPORT (Reported) Furosemide 20 MG TABLET 0.5 TAB PO DAILY WATER RETENTION (Reported) Gamma-Aminobutyric Acid (Aminobutyric Acid) 1 GM POWDER 500 MG PO DAILY SUPPLEMENT (Reported) Selene Root (Unknown Strength) CAPSULE (Unknown Dose) PO QHS PRN SUPPLEMENT ( Reported) Glipizide (Glipizide ER) 5 MG TAB.ER.24 1 TAB PO DAILY DIABETES (Reported) Hydrocodone/Acetaminophen (Hydrocodon-Acetaminophen 5-325) 5 MG-325 MG TABLET 1 TAB PO BID PAIN (Reported) [DILLAN'S LEG CRAMPS] 1 TAB PO PRN LEG CRAMPS - OTC (Reported) Lactobacillus Acidophilus (Probiotic) (Unknown Strength) CAPSULE (Unknown Dose ) PO DAILY SUPPLEMENT (Reported) Levothyroxine Sodium 75 MCG TABLET 1 TAB PO DAILY AC THYROID (Reported) Levothyroxine Sodium (Synthroid) 50 MCG TABLET 0.05 MG PO DAILY AC thyroid Lidocaine 5 % ADH..PATCH 1 PAT TOP DAILY PAIN (Reported) Lorazepam (Ativan) 0.5 MG TABLET 1 TAB PO DAILY SLEEP/TREMORS/STOMACH PROBLEMS (Reported) Magnesium Oxide (Magnesium) 500 MG CAPSULE 1 CAP PO DAILY SUPPLEMENT ( Reported) Mirtazapine 7.5 MG TABLET 1 TAB PO QPM SLEEP/ANXIETY (Reported) Multivitamin With Minerals (Multivitamins With Minerals) 1 EACH TABLET 1 TAB PO DAILY VITAMIN SUPPORT (Reported) Om3/Dha/Epa/Cod Liver Oil/A/D3 (Cod Liver Oil Softgel) 240-1,000MG CAPSULE 1 CAP PO DAILY SUPPLEMENT (Reported) Potassium Gluconate (Potassium) 595 MG (99 MG) TABLET 1 TAB PO BID SUPPLEMENT (Reported) Prednisone 5 MG TABLET 1 TAB PO QAM ARTHRITIS (Reported) Sour Thompson Extract (Tart Thompson Extract) (Unknown Strength) CAPSULE (Unknown Dose) PO DAILY SUPPLEMENT (Reported) Ubidecarenone (Co Q-10) 100 MG CAPSULE 1 CAP PO DAILY SUPPLEMENT (Reported) Vitamin B Complex 1 EACH CAPSULE 1 CAP PO DAILY SUPPLEMENT (Reported) Current Medications: Current Medications Sig/Rich Start time Last Medication Dose Route Stop Time Status Admin Acetaminophen 325 MG Q6P PRN 05/31 0745 AC 05/31 PO 0758 Acetaminophen 500 MG QPM 05/29 2200 AC 05/30 PO 2203 Apixaban 2.5 MG BID 05/29 2199 AC 05/31 PO 0854 Insulin Aspart 0 TIDAC 05/28 0800 AC 05/31 SC 1237 Levothyroxine Sodium 0.05 MG DAILY AC 05/29 0700 AC 05/31 PO 0540 Lorazepam 0.5 MG DAILY 05/28 1000 AC 05/31 PO 06/04 0959 1024 Mirtazapine 7.5 MG QPM 05/28 2200 AC 05/30 PO 2202 Ondansetron HCl 4 MG Q6P PRN 05/28 0230 AC IV Prednisone 5 MG DAILY 05/28 1000 AC 05/31 PO 0855 Review of Systems Review of Systems All Other Systems: Reviewed and Negative Past History Travel History Traveled to [place] past 21 day No Medical History Blood Transfusion Hx: No Neurological: NONE EENT: NONE Cardiovascular: AFIB Respiratory: NONE Gastrointestinal: NONE Hepatic: NONE Renal: NONE Musculoskeletal: fibromyalgia Psychiatric: NONE Endocrine: diabetes, hyperthyroidism Blood Disorders: NONE Cancer(s): NONE [employer]/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 Home Smoking Status: Never Smoked ETOH Use: denies use, 6 Illicit Drug Use: denies illicit drug use Exam & Diagnostic Data Last 24 Hrs of Vital Signs/I&O Vital Signs Date Time Temp Pulse Resp B/P B/P Pulse O2 O2 Flow FiO2 Mean Ox Delivery Rate 05/31 1427 98.7 81 20 140/80 95 Room Air 05/31 0800 94 Room Air 05/31 0650 99.2 85 20 170/80 94 Room Air 05/30 2242 98.3 94 20 140/60 97 Room Air Intake & Output 05/31 1600 05/31 0800 05/31 0000 Intake Total 240 200 Output Total Balance 240 200 Intake, Oral 240 200 Patient 201 lb Weight Weight Bed scale Measurement Method Physical Exam General Appearance: no apparent distress, alert, awake, comfortable Head: atraumatic, normal appearance Neck: supple Respiratory: normal breath sounds, chest non-tender, no respiratory distress Cardiovascular: S1 and S2 + Gastrointestinal: normal bowel sounds, soft, non-tender Extremities: chronic edema, compression stockings in place Skin: intact, normal color, warm/dry Last 48 Hrs of Labs/Jorge: Laboratory Tests 05/31/17 0617: Anion Gap 10, Estimated GFR 18 L, BUN/Creatinine Ratio 18.0, CBC w Diff NO MAN DIFF REQ, RBC 2.74 L, MCV 100.9 H, MCH 32.3 H, MCHC 32.0 L, RDW 15.7 H, MPV 7.9, Gran % 77.2 H, Lymphocytes % 14.5 L, Monocytes % 6.0, Eosinophils % 2.0, Basophils % 0.3, Absolute Granulocytes 7.0 H, Absolute Lymphocytes 1.3, Absolute Monocytes 0.5, Absolute Eosinophils 0.2, Absolute Basophils 0 05/30/17 0635: Anion Gap 9, Estimated GFR 16 L, BUN/Creatinine Ratio 17.1, CBC w Diff NO MAN DIFF REQ, RBC 2.71 L, MCV 101.0 H, MCH 32.3 H, MCHC 32.0 L, RDW 15.4 H, MPV 7.7, Gran % 77.0 H, Lymphocytes % 13.0 L, Monocytes % 7.4, Eosinophils % 2.4, Basophils % 0.2, Absolute Granulocytes 6.7 H, Absolute Lymphocytes 1.1 L, Absolute Monocytes 0.6, Absolute Eosinophils 0.2, Absolute Basophils 0 Assessment/Plan Impression/Plan: 1. Pulmonary hypertension - etiology unclear. The patient remains on Eliquis and has been compliant with her medication, making PE less likely but not impossible. Differential diagnosis includes restrictive lung disease in the setting of morbid obesity as well as uncontrolled obstructive sleep apnea. 2. Atrial fibrillation. 3. Subclinical hypothyroidism. 4. Acute gastritis - improved. 5. Peripheral venous disease with history of DVT, on Eliquis. 6. Macrocytic anemia. 7. Acute on chronic renal insufficiency, improved with hydration. Recommendations: * Will discuss results of ECHO with cardiology. * Would consider checking VQ scanning. * Check a PA and lateral CXR. * Will consider a non-contrast CT scan of the chest pending the above results. * Check a bedside spirometry to rule out restrictive versus obstructive lung disease. The patient will likely benefit from full series pulmonary function studies. * Check ambulatory oxygen saturations. * The patient will require out patient sleep study. * Continue Eliquis at all times, unless evidence of bleeding. * Thank you for the consult. Will follow along with you and provide further recommendations as necessary. If you have any comments or questions, please do not hesitate to contact me at any time. Consult Acknowledgment - Thank you for your consult request.
[2017-05-31 22:57] VITALS: BP 138/88
[2017-06-01 06:57] VITALS: BP 180/90
--- NOTE | 2017-06-01 06:59 | PN- Housestaff ---
Hiram MELÉNDEZ,Lyndsay 06/01/17 0659: Subjective Follow-up For: Gastroenteritis Acute kidney injury-slowly improving Tele-Events Since Last Visit: Adolfo alfaro [id number], 0.08, no overnight events Subjective: Patient was seen and examined at bedside, complains of chronic back and lower extremity pain, was not able to sleep last night because of the pain. Denies any cough, shortness of breath, nausea, vomiting or diarrhea Review of Systems Constitutional: Reports: see HPI. Objective Last 24 Hrs of Vital Signs/I&O Vital Signs Date Time Temp Pulse Resp B/P B/P Pulse O2 O2 Flow FiO2 Mean Ox Delivery Rate 06/01 0800 95 Room Air 06/01 0700 152/86 06/01 0657 98.2 87 20 180/90 95 Room Air 05/31 2257 98.2 98 20 138/88 94 Room Air 05/31 1600 95 Room Air 05/31 1427 98.7 81 20 140/80 95 Room Air Intake & Output 06/01 1600 06/01 0800 06/01 0000 Intake Total 360 540 Output Total Balance 360 540 Intake, Oral 360 540 Patient 198 lb Weight Weight Bed scale Measurement Method Physical Exam General Appearance: Alert, Oriented X3, Cooperative, No Acute Distress HEENT: Atraumatic, PERRLA, EOMI, Mucous Membr. moist/pink Neck: Supple, No JVD Cardiovascular: Normal S1, Normal S2, No Murmurs Lungs: Clear to Auscultation Abdomen: Normal Bowel Sounds, Soft, No Tenderness Neurological: Normal Speech, Strength at 5/5 X4 Ext, Normal Tone, Sensation Intact Extremities: No Clubbing, No Cyanosis, No Edema Assessment/Plan Assessment: 86 YO F non smoker with PMH of [place] not on anticoagulation, DVT on eliquis, DM, PVD s/p stent placement, fibromyelgia and hypothyroidism was brought previously with chief complaint of nausea, vomiting and diarrhea since yesterday afternoon. Pulmonary hypertension/pulmonary embolus/lung mass Echo showed significant pulmonary hypertension with right ventricular systolic pressure of at least 60 mmHg. Patient is saturating at 95 at room air on denies any chest pain Pulmonary recommendation appreciated Hematology consult appreciated VQ scan showed features of pulmonary embolus with Multiple subsegmental perfusion defects are present which appear mismatched on the ventilation images. CT chest showed pulmonary parenchymal mass in the right upper lobe extending along the margin of the major fissure in the posterior and lateral aspects of the margin of right upper lobe DC Eliquis Start IV heparin drip and transitioned to Coumadin as per hematology recommendation Paroxysmal A. fib: -Continue to observe on telemetry -Trops/EKG negative -Continue levothyroxine 50 mEq daily -DC Eliquis Start IV heparin drip for PE Acute gastroenteritis: Improved Leukocytosis resolved -No more diarrhea during hospital stay. -encourage oral intake. -Antiemetic medication when necessary -Follow the stool studies Acute on chronic kidney injury: Slowly improving -Could be Precipitated by acute loss of fluid by gastroenteritis or due to contrast-induced kidney injury as patient got stent placement 3 weeks back. Patient's baseline creatinine is 1.4 but after that you don't have any creatinine level. We will get record from primary care physician for her kidney function. -Monitor input and output -No nephrotoxic medications -Hold Lasix for now that can precipitate kidney injury. History of diabetes: Fingerstick glucose 156, 194, 233 -We will hold her home medication -Accu-Cheks -Insulin NovoLog according to sliding scale during hospital stay. History of fibromyalgia: -Continue home medications History of hypothyroidism: -Continue levothyroxine at 50mcg -TSH and free T4 DVT prophylaxis: - mechanical and patient is already on Eliquis CODE STATUS: DNR/DNI Problem List: 1. Paroxysmal A-fib 2. Qglhi-[id number] kidney injury 3. Acute gastroenteritis Pain Ratin Pain Location: back Pain Goal: Pain 4 or less Pain Plan: pathway Tomorrow's Labs & Rationales: cbc bep Yue [place] 06/01/17 1546: Attending MD Review Statement Attending Statement Attending MD Statement: examined this patient, discuss w/resident/PA/TRANSFER WORKER, agreed w/resident/PA/TRANSFER WORKER, reviewed EMR data (avail), discussed with nursing, discussed with case mgmt Attending Assessment/Plan: Pts cr is stable. V/Q scan shows intermedaite probaility, Pulmonary consult appreciated. Pt will be switched to iv heparin and will be switched to coumadin from Novel anticoagulant. D/w pt the care plan. Await workup on pulm htn per pulmonary recommendations. F/ u on ct chest and bedside spirometry.
[2017-06-01 07:00] VITALS: BP 152/86
[2017-06-01 08:58] LABS: ABSOLUTE BASOPHIL COUNT 0 /CUMM (0.0-0.2); ABSOLUTE EOSINOPHIL COUNT 0.2 /CUMM (0.0-0.7); ABSOLUTE GRANULOCYTE CT 7.1 /CUMM (1.4-6.5); ABSOLUTE LYMPH COUNT 1.2 /CUMM (1.2-3.4); ABSOLUTE MONOCYTE COUNT 0.8 /CUMM (0.10-0.60); BASOPHIL % 0.3 % (0.0-2.0); EOSINOPHIL % 1.7 % (0-5); GRANULOCYTE % 76.7 % (42.2-75.2); HEMATOCRIT 28.9 % (37-47); MEAN CORPUSCULAR HGB CONC 31.9 G/DL (33.0-37.0); MEAN CORPUSCULAR VOLUME 100.1 FL (81.0-99.0); PLATELET COUNT 211 /CUMM (130-400); RBC DISTRIBUTION WIDTH 15.3 % (11.5-14.5); RED BLOOD CELL CT 2.88 /CUMM (4.20-5.40); WHITE BLOOD CELL COUNT 9.3 /CUMM (4.8-10.8)
--- NOTE | 2017-06-01 09:40 | PN- Pulmonary ---
Objective Current Medications: Current Medications Sig/Rich Start time Last Medication Dose Route Stop Time Status Admin Acetaminophen 325 MG Q6P PRN 05/31 0745 AC 06/01 PO 0432 Acetaminophen 500 MG QPM 05/290 AC 05/31 PO 2253 Apixaban 2.5 MG BID 05/29 220 AC 05/31 PO 2251 Insulin Aspart 0 TIDAC 05/28 0800 AC 05/31 SC 1728 Levothyroxine Sodium 0.05 MG DAILY AC 05/29 0700 AC 06/01 PO 0508 Lorazepam 0.5 MG DAILY 05/28 1000 AC 06/01 PO 06/04 0959 0522 Mirtazapine 7.5 MG QPM 05/28 220 AC 05/31 PO 2251 Ondansetron HCl 4 MG Q6P PRN 05/28 0230 AC IV Prednisone 5 MG DAILY 05/28 1000 AC 05/31 PO 0855 Vital Signs & I&O Last 24 Hrs of Vitals and I&O: Vital Signs Date Time Temp Pulse Resp B/P B/P Pulse O2 O2 Flow FiO2 Mean Ox Delivery Rate 06/01 0800 95 Room Air 06/01 0700 152/86 06/01 0657 98.2 87 20 180/90 95 Room Air 05/31 2257 98.2 98 20 138/88 94 Room Air 05/31 1600 95 Room Air 05/31 1427 98.7 81 20 140/80 95 Room Air Intake & Output 06/01 1600 06/01 0800 06/01 0000 Intake Total 360 540 Output Total Balance 360 540 Intake, Oral 360 540 Patient 198 lb Weight Weight Bed scale Measurement Method Physical Exam General Appearance: no apparent distress, alert, awake, comfortable Head: atraumatic, normal appearance Neck: supple Respiratory: normal breath sounds, chest non-tender, no respiratory distress Cardiovascular: S1 and S2 + Gastrointestinal: normal bowel sounds, soft, non-tender Extremities: chronic edema, compression stockings in place Skin: intact, normal color, warm/dry Impression/Plan Impression/Plan Impression/Plan: 1. Pulmonary hypertension - etiology unclear. The patient remains on Eliquis and has been compliant with her medication, making PE less likely but not impossible. Differential diagnosis includes restrictive lung disease in the setting of morbid obesity as well as uncontrolled obstructive sleep apnea. 2. Atrial fibrillation. 3. Subclinical hypothyroidism. 4. Acute gastritis - improved. 5. Peripheral venous disease with history of DVT, on Eliquis. 6. Macrocytic anemia. 7. Acute on chronic renal insufficiency, improved with hydration. Recommendations: * Will discuss results of ECHO with cardiology. * Would consider checking VQ scanning. * Check a PA and lateral CXR. * Will consider a non-contrast CT scan of the chest pending the above results. * Check a bedside spirometry to rule out restrictive versus obstructive lung disease. The patient will likely benefit from full series pulmonary function studies. * Check ambulatory oxygen saturations. * The patient will require out patient sleep study. * Continue Eliquis at all times, unless evidence of bleeding. * Please call with any comments or questions.
--- NOTE | 2017-06-01 10:29 | CT SCAN REPORT ---
EXAMINATION: CT CHEST WITHOUT CONTRAST CLINICAL INFORMATION: Dyspnea query restrictive lung disease. COMPARISON: Chest x-ray dated 03/07/2009. TECHNIQUE: Multidetector volumetric CT imaging of the chest was done. Axial MIP volume rendering provided. Sagittal and coronal reformatted images were obtained. 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 Focal density in the lateral mid right hemithorax as well as multiple densities in the right suprahilar region. LUNGS: Masslike structure extending from the mid right upper lobe along the major fissure posteriorly, laterally and ending with a lateral masslike lesion. The most superior portion of a masslike structure measures 2.9 x 1.3 x 1.4 cm, while the lateral mass component measures approximately 3.8 x 1.3 x 0.9 cm. There is a focal rounded density measuring 1.0 x 2.0 x 0.9 cm in size at the anterior margin of the junction of the right upper and right middle lobe, this is fat density and likely represents either a hamartoma or potentially a focal area of pleural thickening. The nodular appearance of the right suprahilar region is likely secondary to superimposed vessels as well as the right upper lobe mass. The pulmonary veins are prominent particularly the left pulmonary veins and the superior left pulmonary vein more prominent than the inferior structure. There is generalized cardiomegaly predominantly bilateral atrial enlargement. Trace pericardial fluid, physiologic is present. Coronary vascular calcifications are noted as well as atherosclerotic plaque along the thoracic aorta and calcification of the trachea and bronchial structures. MEDIASTINUM: There are multiple prominent mediastinal lymph nodes, borderline with short axis dimensions of approximately 1 cm, subcarinal precarinal and aorticopulmonary window and right paratracheal the largest is the right paratracheal lymph node however the morphology of that particular lymph node is normal in appearance with a central fatty hilum. No hilar lymphadenopathy is present.. PLEURA: There are bilateral pleural effusions . Nodular pleural thickening is present in the posterior upper regions. There is a thin rim of atelectatic pulmonary parenchyma containing air bronchograms along the anterior margin of the prominent right-sided pleural effusion. A similar finding is not associated with the left-sided pleural effusion. AXILLA: No lymphadenopathy. UPPER ABDOMEN: Unremarkable. OSSEOUS STRUCTURES: Multilevel degenerative changes are mild, there is loss of vertebral body height with anterior wedging of multiple of the mid to lower thoracic vertebral bodies, no focal destructive bony changes are identified throughout.. IMPRESSION: 1. Pulmonary parenchymal mass in the right upper lobe is elongated in shape extending along the margin of the major fissure in the posterior and lateral aspects of the margin of the right upper lobe as described in detail above. 2. Bilateral pleural effusions are present, associated marginal atelectasis along the anterior aspect of the right pleural effusion is present. 3. Prominence of the left pulmonary veins and bilateral atrial enlargement is present. 4. Borderline mediastinal lymphadenopathy as described in detail above.
--- NOTE | 2017-06-01 10:51 | RADIOLOGY REPORT ---
EXAMINATION: XR CHEST CLINICAL INFORMATION: Lung pathology, dyspnea. COMPARISON: Chest CT scan performed on the same day as the current study. TECHNIQUE: Frontal and lateral views of the chest were obtained. FINDINGS: There is hyperinflation with flattening of the diaphragms. Increased density is noted along the lateral aspect of the right hemithorax. Prominence of the central pulmonary vasculature is present. There is blunting the costophrenic angles on lateral view consistent with bilateral pleural effusions. Cardiomegaly is noted. There is no evidence of pleural effusion or pneumothorax. The central pulmonary vasculature is within normal limits. The bony structures and overlying soft tissues are unremarkable. IMPRESSION: 1. Right upper lobe pulmonary mass better characterized on the CT study performed on the same day as the current study. 2. Prominent central pulmonary vascular structures, cardiomegaly and bilateral pleural effusions are suggestive of pulmonary edema. 3. Hyperinflation with flattening of the diaphragms.
--- NOTE | 2017-06-01 11:14 | NUCLEAR MEDICINE REPORT ---
EXAMINATION: PULMONARY VENTILATION PERFUSION STUDY CLINICAL INFORMATION: Dyspnea. COMPARISON: No previous lung scan is available for comparison. Radiographs of the chest dated 06/01/2017, the same date as this lung scan, are available for comparison. Chest CT dated 06/01/2017 is also available for comparison. TECHNIQUE: Serial gamma scintillation camera images were obtained over the posterior chest during the single breath, equilibrium rebreathing and washout of 23.6 mCi Xe 133 gas. The patient then received 4.2 mCi Tc-99m MAA intravenously and a 6-view perfusion study was performed. FINDINGS: Ventilation images: On the single breath and equilibrium images there is homogeneous distribution of gas bilaterally. During the washout phase there is mild diffuse abnormal retention in the left lung.. Perfusion images: No segmental perfusion defects are present. There is a subsegmental perfusion defect present laterally in the right mid lung field an another subsegmental perfusion defect is present laterally in the left upper lobe. There is an additional subsegmental perfusion defect present laterally at the left lung base, best visualized on the LPO view. An additional subsegmental perfusion defect is present in the posterior segment of the right upper lobe, best visualized on the RPO view. None of these are matched by focal ventilatory abnormalities. The contemporaneous chest radiographs and CT scans show bilateral pleural effusions, larger on the right than the left. There is a density in the major interlobar fissure on the right that may in part correspond to perfusion abnormalities described above but appears smaller than the latter. IMPRESSION: Intermediate probability of pulmonary embolism. Multiple subsegmental perfusion defects are present which appear mismatched on the ventilation images.
--- NOTE | 2017-06-01 11:34 | PN- Cardiology ---
Subjective Subjective: No chest pain. No cough. No shortness of breath. No nausea or vomiting. No diaphoresis. 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 Objective Vital Signs and I&Os Vital Signs Date Time Temp Pulse Resp B/P B/P Pulse O2 O2 Flow FiO2 Mean Ox Delivery Rate 06/01 0800 95 Room Air 06/01 0700 152/86 06/01 0657 98.2 87 20 180/90 95 Room Air 05/31 2257 98.2 98 20 138/88 94 Room Air 05/31 1600 95 Room Air 05/31 1427 98.7 81 20 140/80 95 Room Air Intake & Output 06/01 1600 06/01 0800 06/01 0000 05/31 1600 05/31 0800 05/31 0000 Intake Total 360 540 440 240 200 Output Total Balance 360 540 440 240 200 Intake, Oral 360 540 440 240 200 Patient 198 lb 201 lb Weight Weight Bed scale Bed scale Measurement Method Physical Exam: Gen: NAD HEENT: normal Lungs: clear to auscultation, normal resp. effort Heart: RRR, S1, S2, 1 / 6 systolic murmur Abdomen: Soft, nontender, no masses Extremities: No clubbing, cyanosis, or edema. Neuro: Alert and oriented x 3, cranial nerves intact Current Medications: Current Medications Sig/Rich Start time Last Medication Dose Route Stop Time Status Admin Acetaminophen 500 MG Q6P PRN 06/01 1100 AC 06/01 PO 1101 Acetaminophen 325 MG Q6P PRN 05/31 0745 DC 06/01 PO 0432 Acetaminophen 500 MG QPM 05/29 2200 DC 05/31 PO 2253 Apixaban 2.5 MG BID 05/29 220 AC 06/01 PO 1057 Insulin Aspart 0 TIDAC 05/28 0800 AC 05/31 SC 1728 Levothyroxine Sodium 0.05 MG DAILY AC 05/29 0700 AC 06/01 PO 0508 Lorazepam 0.5 MG DAILY 05/28 1000 AC 06/01 PO 06/04 0959 0522 Mirtazapine 7.5 MG QPM 05/28 2200 AC 05/31 PO 2251 Ondansetron HCl 4 MG Q6P PRN 05/28 0230 AC IV Prednisone 5 MG DAILY 05/28 1000 AC 06/01 PO 1057 Results Last 48 Hrs of Labs/Mics: Laboratory Tests 06/01/17 0800: Anion Gap 10, Estimated GFR 18 L, BUN/Creatinine Ratio 14.8, CBC w Diff NO MAN DIFF REQ, RBC 2.88 L, MCV 100.1 H, MCH 32.0 H, MCHC 31.9 L, RDW 15.3 H, MPV 8.0, Gran % 76.7 H, Lymphocytes % 13.0 L, Monocytes % 8.3, Eosinophils % 1.7, Basophils % 0.3, Absolute Granulocytes 7.1 H, Absolute Lymphocytes 1.2, Absolute Monocytes 0.8 H, Absolute Eosinophils 0.2, Absolute Basophils 0 05/31/17 0617: Anion Gap 10, Estimated GFR 18 L, BUN/Creatinine Ratio 18.0, CBC w Diff NO MAN DIFF REQ, RBC 2.74 L, MCV 100.9 H, MCH 32.3 H, MCHC 32.0 L, RDW 15.7 H, MPV 7.9, Gran % 77.2 H, Lymphocytes % 14.5 L, Monocytes % 6.0, Eosinophils % 2.0, Basophils % 0.3, Absolute Granulocytes 7.0 H, Absolute Lymphocytes 1.3, Absolute Monocytes 0.5, Absolute Eosinophils 0.2, Absolute Basophils 0 Recent Imaging Studies: Chest x-ray: 1. Right upper lobe pulmonary mass better characterized on the CT study performed on the same day as the current study. 2. Prominent central pulmonary vascular structures, cardiomegaly and bilateral pleural effusions are suggestive of pulmonary edema. 3. Hyperinflation with flattening of the diaphragms. CT scan of the chest: 1. Pulmonary parenchymal mass in the right upper lobe is elongated in shape extending along the margin of the major fissure in the posterior and lateral aspects of the margin of the right upper lobe as described in detail above. 2. Bilateral pleural effusions are present, associated marginal atelectasis along the anterior aspect of the right pleural effusion is present. 3. Prominence of the left pulmonary veins and bilateral atrial enlargement is present. 4. Borderline mediastinal lymphadenopathy as described in detail above. V/Q scan Intermediate probability of pulmonary embolism. Multiple subsegmental perfusion defects are present which appear mismatched on the ventilation images. Assessment/Plan Assessment/Plan Assessment: 1. Atrial fibrillation 2. Subclinical hypothyroidism 3. Hyperkalemia 4. Pulmonary hypertension 5. Peripheral venous disease with history of DVT on Eliquis. 6. Macrocytic anemia 7. Acute on chronic renal insufficiency 8. Lung mass on CT scan 9. Intermediate probability on V/Q scan 10. Pleural effusions noted on CT is Plan: * Continue anticoagulation with Eliquis * Would check with nephrology regarding whether IV Lasix may be given Continue telemetry? Yes
[2017-06-01 14:17] VITALS: BP 160/84
[2017-06-01 18:42] LABS: PT 16.5 SEC (9.4-12.5)
--- NOTE | 2017-06-01 19:04 | Cons- Hematology ---
General Information and HPI Consulting Request Date of Consult: 06/01/17 Requested By: Kathy MELÉNDEZ,Cara Reason for Consult: DVT, PE, Anemia, Lung mass Source of Information: patient, old records Exam Limitations: no limitations History of Present Illness: Ms. Grant is an 86-year-old female with history of PAF on apixaban, DVT diagnosed in 04/2017, CKD stage III, PVD s/p external iliac vein stent, DM, fibromyalgia, and hypothyroidism who presented to the [facility] ED with nausea, vomiting, and diarrhea. She was was noted to have gastroenteritis and acute on chronic kidney injury. Her creatinine was 3.2 on presentation. Her hemoglobin was 10.1. She was noted to have DVT after undergoing peripheral angiogram on 05/11 and noted to have DVT. She was placed on apixaban at that time. Due to concerns for thrombosis of stent in the vein, she underwent another venogram. Her renal injury was felt to be a part of the repeated contrast studies and dehydration. Her nausea and vomiting has improved. Diarrhea has resolved. Her creatinine did not improve much after fluid resuscitation. Her echocardiogram demonstrated pulmonary hypertension. Pulmonary medicine was consulted. VQ scan was done to evaluate for pulmonary embolism as the etiology behind her pulmonary hypertension. VQ scan demonstrated possible filling defect which suggest intermediate probability of pulmonary embolism. CT of the chest demonstratedparenchymal mass in the right upper lobe, bilateral pleural effusions, prominence of the left pulmonary veins, bilateral atrial enlargement, and porderline mediastinal lymphadenopathy. She remains on apixaban. She denies any symptoms this afternoon. Allergies/Medications Allergies: Coded Allergies: clarithromycin (From BIAXIN) (Severe, DIGESTIVE SHUTDOWN, TREMORS 05/27/17) acetaminophen (From ULTRACET) (DIGESTIVE PROBLEMS 05/27/17) amoxicillin (DIGESTIVE PROBLEMS 05/27/17) aspirin (From DARVON COMPOUND-65) (SEVERE VOMITING 05/27/17) berberine (LOOSE EXPLOSIVE BOWELS 05/27/17) caffeine (From DARVON COMPOUND-65) (SEVERE VOMITING 05/27/17) duloxetine (DIGESTIVE PROBLEMS 05/27/17) escitalopram (From LEXAPRO) (NAUSEA/DEPRESSION 05/27/17) fluconazole (From DIFLUCAN) (CONSTANT NAUSEA 05/27/17) fondaparinux (From ARIXTRA) (DIGESTIVE SHUTDOWN, TREMORS 05/27/17) gabapentin (From NEURONTIN) (DIGESTIVE PROBLEMS 05/27/17) hydromorphone (VERY POOR PAIN RELIEF 05/27/17) hyoscyamine (OPPOSITE EFFECTS 05/27/17) imipramine (NAUSEA/DEPRESSION 05/27/17) meperidine (VOMITING 05/27/17) metformin (NAUSEA, BLADDER LEAKAGE 05/27/17) oxychlorosene (GI DISTRESS 11/06/16) oxycodone (NAUSEA, TREMORS, GI UPSET 05/27/17) paroxetine (From PAXIL) (VAGINITIS MONILIASIS 05/27/17) propafenone (NAUSEA, INCONTINENCE, DIZZINESS, TREMORS, SLEEPINESS 05/27/17) propoxyphene (VOMITING 11/06/16) sertraline (From ZOLOFT) (DEPRESSION/NAUSEA 05/27/17) sotalol (NAUSEA, INCONTINENCE, DIZZINESS, TREMORS, SLEEPINESS 05/27/17) tizanidine (DIZZINESS, BLACK OUT, DISORIENTED 05/27/17) tramadol (DIGESTIVE SHUTDOWN, TREMORS 05/27/17) Uncoded Allergies: KELP (SEVERE CHEST PAIN 05/27/17) Home Med List: Acetaminophen 500 MG TABLET 1 TAB PO AD PAIN (Reported) Alpha Lipoic Acid 600 MG CAPSULE 1 CAP PO DAILY SUPPLEMENT (Reported) Apixaban (Eliquis) 5 MG TABLET 1 TAB PO BID BLOOD THINNER (Reported) [ARTICHOKE LEAF] 1 CAP PO DAILY SUPPLEMENT (Reported) Ascorbic Acid (Vitamin C) (Unknown Strength) CAPSULE (Unknown Dose) PO DAILY SUPPLEMENT (Reported) Biotin 1,000 MCG TAB.CHEW 1 TAB PO DAILY SUPPLEMENT (Reported) Cholecalciferol (Vitamin D3) (Vitamin D3) 5,000 UNIT TABLET 1 TAB PO DAILY VITAMIN SUPPORT (Reported) Chrm/Viridiana/ Bt-Org Peel/Gr T (Apple Cider Vinegar Plus Tb) (Unknown Strength) TABLET (Unknown Dose) PO DAILY SUPPLEMENT (Reported) Cider Vinegar (Apple Cider Vinegar) (Unknown Strength) TABLET (Unknown Dose) PO QHS PRN SUPPLEMENT (Reported) Cod Liver Oil 1 EACH CAPSULE 1 CAP PO DAILY SUPPLEMENT (Reported) Cyanocobalamin (Vitamin B-12) 1,000 MCG TABLET 1 TAB PO DAILY VITAMIN SUPPORT (Reported) Furosemide 20 MG TABLET 0.5 TAB PO DAILY WATER RETENTION (Reported) Gamma-Aminobutyric Acid (Aminobutyric Acid) 1 GM POWDER 500 MG PO DAILY SUPPLEMENT (Reported) Selene Root (Unknown Strength) CAPSULE (Unknown Dose) PO QHS PRN SUPPLEMENT ( Reported) Glipizide (Glipizide ER) 5 MG TAB.ER.24 1 TAB PO DAILY DIABETES (Reported) Hydrocodone/Acetaminophen (Hydrocodon-Acetaminophen 5-325) 5 MG-325 MG TABLET 1 TAB PO BID PAIN (Reported) [DILLAN'S LEG CRAMPS] 1 TAB PO PRN LEG CRAMPS - OTC (Reported) Lactobacillus Acidophilus (Probiotic) (Unknown Strength) CAPSULE (Unknown Dose ) PO DAILY SUPPLEMENT (Reported) Levothyroxine Sodium 75 MCG TABLET 1 TAB PO DAILY AC THYROID (Reported) Levothyroxine Sodium (Synthroid) 50 MCG TABLET 0.05 MG PO DAILY AC thyroid Lidocaine 5 % ADH..PATCH 1 PAT TOP DAILY PAIN (Reported) Lorazepam (Ativan) 0.5 MG TABLET 1 TAB PO DAILY SLEEP/TREMORS/STOMACH PROBLEMS (Reported) Magnesium Oxide (Magnesium) 500 MG CAPSULE 1 CAP PO DAILY SUPPLEMENT ( Reported) Mirtazapine 7.5 MG TABLET 1 TAB PO QPM SLEEP/ANXIETY (Reported) Multivitamin With Minerals (Multivitamins With Minerals) 1 EACH TABLET 1 TAB PO DAILY VITAMIN SUPPORT (Reported) Om3/Dha/Epa/Cod Liver Oil/A/D3 (Cod Liver Oil Softgel) 240-1,000MG CAPSULE 1 CAP PO DAILY SUPPLEMENT (Reported) Potassium Gluconate (Potassium) 595 MG (99 MG) TABLET 1 TAB PO BID SUPPLEMENT (Reported) Prednisone 5 MG TABLET 1 TAB PO QAM ARTHRITIS (Reported) Sour Thompson Extract (Tart Thompson Extract) (Unknown Strength) CAPSULE (Unknown Dose) PO DAILY SUPPLEMENT (Reported) Ubidecarenone (Co Q-10) 100 MG CAPSULE 1 CAP PO DAILY SUPPLEMENT (Reported) Vitamin B Complex 1 EACH CAPSULE 1 CAP PO DAILY SUPPLEMENT (Reported) Current Medications: Current Medications Sig/Rich Start time Last Medication Dose Route Stop Time Status Admin Acetaminophen 500 MG Q6P PRN 06/01 1100 AC 06/01 PO 1101 Acetaminophen 325 MG Q6P PRN 05/31 0745 DC 06/01 PO 0432 Acetaminophen 500 MG QPM 05/29 2199 DC 05/31 PO 2253 Apixaban 2.5 MG BID 05/29 2199 DC 06/01 PO 1057 Heparin Sodium 25,000 UNIT Q24H 06/01 1730 AC (Porcine) IV Sodium Chloride 500 ML Heparin Sodium 2,500 UNIT ONCE ONE 06/01 1715 DC (Porcine) IV 06/01 1716 Heparin Sodium/ 25,000 UNIT Q24H 06/01 1715 DC Dextrose IV Dextrose/Water 500 ML Insulin Aspart 0 TIDAC 05/28 0800 AC 06/01 SC 1733 Levothyroxine Sodium 0.05 MG DAILY AC 05/29 0700 AC 06/01 PO 0508 Lorazepam 0.5 MG DAILY 05/28 1000 AC 06/01 PO 06/04 0959 0522 Mirtazapine 7.5 MG QPM 05/28 2200 AC 05/31 PO 2251 Ondansetron HCl 4 MG Q6P PRN 05/28 0230 AC IV Patient Medication 1 ED ONE ONE 06/01 1700 DC Teaching ED 06/01 1701 Prednisone 5 MG DAILY 05/28 1000 AC 06/01 PO 1057 Review of Systems Review of Systems Constitutional: Denies: chills, fever, weakness, unexplained weight loss. Cardiovascular: Denies: chest pain. Respiratory: Denies: short of breath. GI: Reports: diarrhea, nausea, vomiting. Genitourinary: Denies: dysuria. Hematologic/Endocrine: Denies: bruising, bleeding. 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 Home Smoking Status: Never Smoked ETOH Use: denies use, 6 Illicit Drug Use: denies illicit drug use Exam & Diagnostic Data Vital Signs and I&O Vital Signs Date Time Temp Pulse Resp B/P B/P Pulse O2 O2 Flow FiO2 Mean Ox Delivery Rate 06/01 1417 98.4 64 20 160/84 95 Room Air 06/01 0800 95 Room Air 06/01 0700 152/86 06/01 0657 98.2 87 20 180/90 95 Room Air 05/31 2256 98.2 98 20 138/88 94 Room Air Intake & Output 06/01 1600 06/01 0800 06/01 0000 Intake Total 500 360 540 Output Total Balance 500 360 540 Intake, Oral 500 360 540 Patient 89.925 kg Weight Weight Bed scale Measurement Method Physical Exam General Appearance: well developed/nourished, no apparent distress, alert, awake , comfortable, obese Head: atraumatic, normal appearance Eyes: Bilateral: PERRL, EOMI. Ears, Nose, Throat: normal pharynx, normal ENT inspection Respiratory: normal breath sounds, chest non-tender, no respiratory distress, quiet respiration, decreased breath sounds Cardiovascular: regular rate/rhythm, murmur Gastrointestinal: normal bowel sounds, soft, non-tender Extremities: pedal edema, compression stocking in place Neurologic/Psych: awake, alert, oriented x 3 Skin: warm/dry Lymphatic: no anterior cervical dominic Last 48 Hours of Lab Results: Laboratory Tests 06/01 06/01 1750 0800 Chemistry Sodium (137 - 145 mmol/L) 143 Potassium (3.5 - 5.1 mmol/L) 4.7 Chloride (98 - 107 mmol/L) 110 H Carbon Dioxide (22 - 30 mmol/L) 23 Anion Gap (5 - 16) 10 BUN (7 - 17 mg/dL) 37 H Creatinine (0.5 - 1.0 mg/dL) 2.5 H Estimated GFR (>60 ml/min) 18 L BUN/Creatinine Ratio (7 - 25 %) 14.8 Coagulation PT Pending INR Pending Hematology CBC w Diff NO MAN DIFF REQ WBC (4.8 - 10.8 /CUMM) 9.3 RBC (4.20 - 5.40 /CUMM) 2.88 L Hgb (12.0 - 16.0 G/DL) 9.2 L Hct (37 - 47 %) 28.9 L MCV (81.0 - 99.0 FL) 100.1 H MCH (27.0 - 31.0 PG) 32.0 H MCHC (33.0 - 37.0 G/DL) 31.9 L RDW (11.5 - 14.5 %) 15.3 H Plt Count (130 - 400 /CUMM) 211 MPV (7.4 - 10.4 FL) 8.0 Gran % (42.2 - 75.2 %) 76.7 H Lymphocytes % (20.5 - 51.1 %) 13.0 L Monocytes % (1.7 - 9.3 %) 8.3 Eosinophils % (0 - 5 %) 1.7 Basophils % (0.0 - 2.0 %) 0.3 Absolute Granulocytes (1.4 - 6.5 /CUMM) 7.1 H Absolute Lymphocytes (1.2 - 3.4 /CUMM) 1.2 Absolute Monocytes (0.10 - 0.60 /CUMM) 0.8 H Absolute Eosinophils (0.0 - 0.7 /CUMM) 0.2 Absolute Basophils (0.0 - 0.2 /CUMM) 0 05/31 0617 Chemistry Sodium (137 - 145 mmol/L) 142 Potassium (3.5 - 5.1 mmol/L) 4.7 Chloride (98 - 107 mmol/L) 110 H Carbon Dioxide (22 - 30 mmol/L) 22 Anion Gap (5 - 16) 10 BUN (7 - 17 mg/dL) 45 H Creatinine (0.5 - 1.0 mg/dL) 2.5 H Estimated GFR (>60 ml/min) 18 L BUN/Creatinine Ratio (7 - 25 %) 18.0 Hematology CBC w Diff NO MAN DIFF REQ WBC (4.8 - 10.8 /CUMM) 9.1 RBC (4.20 - 5.40 /CUMM) 2.74 L Hgb (12.0 - 16.0 G/DL) 8.8 L Hct (37 - 47 %) 27.6 L MCV (81.0 - 99.0 FL) 100.9 H MCH (27.0 - 31.0 PG) 32.3 H MCHC (33.0 - 37.0 G/DL) 32.0 L RDW (11.5 - 14.5 %) 15.7 H Plt Count (130 - 400 /CUMM) 213 MPV (7.4 - 10.4 FL) 7.9 Gran % (42.2 - 75.2 %) 77.2 H Lymphocytes % (20.5 - 51.1 %) 14.5 L Monocytes % (1.7 - 9.3 %) 6.0 Eosinophils % (0 - 5 %) 2.0 Basophils % (0.0 - 2.0 %) 0.3 Absolute Granulocytes (1.4 - 6.5 /CUMM) 7.0 H Absolute Lymphocytes (1.2 - 3.4 /CUMM) 1.3 Absolute Monocytes (0.10 - 0.60 /CUMM) 0.5 Absolute Eosinophils (0.0 - 0.7 /CUMM) 0.2 Absolute Basophils (0.0 - 0.2 /CUMM) 0 Imaging/Other Studies: CT abdomen/pelvis without contrast 05/27/2017: Sigmoid diverticulosis. No focal inflammatory process or obstruction. Trace right pleural effusion and basilar atelectasis. Echocardiogram 05/28/2017: 1. This was a technically difficult examination. 2. Mild to moderate aortic sclerosis is present with no valvular stenosis or insufficiency. 3. Mitral leaflet thickening is present with minimal mitral insufficiency and mild to moderate left atrial enlargement. 4. A small pericardial effusion is present which is hemodynamically insignificant. 5. The left ventricular chamber size and systolic function appear normal. Flattening of the interventricular septum is present consistent with the presence of pulmonary hypertension. 6. The right heart structures were not optimally assessed. Dilatation of the IVC is present. Mild to moderate tricuspid insufficiency is present with minimal pulmonic insufficiency and significant pulmonary hypertension with an estimated RV systolic pressure of at least 60 mmHg. 7. A left ventricular apical false tendon is present. VQ Scan 05/31/2017: Intermediate probability of pulmonary embolism. Multiple subsegmental perfusion defects are present which appear mismatched on the ventilation images. CT Chest without contrast 06/01/2017: 1. Pulmonary parenchymal mass in the right upper lobe is elongated in shape extending along the margin of the major fissure in the posterior and lateral aspects of the margin of the right upper lobe as described in detail above. 2. Bilateral pleural effusions are present, associated marginal atelectasis along the anterior aspect of the right pleural effusion is present. 3. Prominence of the left pulmonary veins and bilateral atrial enlargement is present. 4. Borderline mediastinal lymphadenopathy as described in detail above. Assessment/Plan Assessment: Ms. Grant is an 86-year-old female with history of PAF on apixaban, DVT diagnosed in 04/2017, CKD stage III, PVD s/p external iliac vein stent, DM, fibromyalgia, and hypothyroidism who presented to the [facility] ED with nausea, vomiting, and diarrhea. She was was noted to have gastroenteritis and acute on chronic kidney injury. She was admitted for gastroenteritis which has improved. Renal injury was felt to be likely dehydration and contrast-induced injury. Renal function is stable. SPEP is negative. Nephrology is following. Anemia is relatively stable but worsen since March. This may be related to chronic renal injury. Her vitamin B12 level, folate, and iron should be checked. She may be a candidate for EZEQUIEL. Her VQ scan demonstrated intermediate probability of PE. She has history of DVT diagnosed in April 2017 and has been on apixaban. It is unclear the age of her PE as she is asymptomatic. She does have pulmonary hypertension which suggest a possible more chronic finding. Apixaban would be not the best agent for patient with severe renal dysfunction especially in her age group. She has been on warfarin previously. She may be a candidate to go back on this agent. She should have US of the lower extremity repeated. She does have possible new lung mass in the right upper lobe in the parenchymal. She does have some mediastinal lymphadenopathy. This is concerning for possible malignant process. She will likely need bronchoscopy and biopsy. Recommendations: DVT with possible PE: -consider switching to warfarin -recheck US of the BLE Anemia: -check vitamin B12 -check folate -check iron studies: Fe, TIBC, %sat, Ferritin -consider EZEQUIEL Lung mass: -pulmonary evaluation -? bronchoscopy -? thoracic surgery evaluation -likely will need biopsy JANNETH: -avoid nephrotoxic drugs Problem List: 1. Paroxysmal A-fib 2. [id number] kidney injury Other Findings/Comments: Please call [phone] with any questions or concerns. Consult Acknowledgment - Thank you for your consult request.
[2017-06-01 21:51] VITALS: BP 148/80
[2017-06-02 02:31] LABS: PTT 82 SEC (25-37)
[2017-06-02 06:30] VITALS: BP 156/78
--- NOTE | 2017-06-02 06:52 | PN- Cardiology ---
Bryson MELÉNDEZ,Alejandro 06/02/17 0652: Subjective Subjective: Seen and examined at bedside. She endorses back pain. Denies any cp/palpitation, or shortness of breath. No acute o/n telemetry events noted. Objective Vital Signs and I&Os Vital Signs Date Time Temp Pulse Resp B/P B/P Pulse O2 O2 Flow FiO2 Mean Ox Delivery Rate 06/02 0630 98.1 85 20 156/78 95 06/01 2151 98.0 84 18 148/80 96 06/01 1600 95 Room Air 06/01 1417 98.4 64 20 160/84 95 Room Air Intake & Output 06/02 1600 06/02 0800 06/02 0000 06/01 1600 06/01 0800 06/01 0000 Intake Total 328 300 820 360 540 Output Total Balance 328 300 820 360 540 Intake, IV 208 Intake, Oral 120 300 820 360 540 Patient 89.358 kg 89.925 kg Weight Weight Bed scale Bed scale Measurement Method Physical Exam: General Appearance: well developed/nourished, no apparent distress, alert, awake , comfortable, obese Head: atraumatic, normal appearance Ears, Nose, Throat: normal pharynx, normal ENT inspection Respiratory: normal breath sounds, chest non-tender, no respiratory distress, quiet respiration, decreased breath sounds Cardiovascular: regular rate/rhythm, murmur Gastrointestinal: normal bowel sounds, soft, non-tender Extremities: pedal edema, compression stocking in place Neurologic/Psych: awake, alert, oriented x 3 Current Medications: Current Medications Sig/Rich Start time Last Medication Dose Route Stop Time Status Admin Acetaminophen 500 MG Q6P PRN 06/01 1100 AC 06/02 PO 0315 Acetaminophen 325 MG Q6P PRN 05/31 0745 DC 06/01 PO 0432 Acetaminophen 500 MG QPM 05/29 2199 DC 05/31 PO 2253 Apixaban 2.5 MG BID 05/29 2200 DC 06/01 PO 1057 Heparin Sodium 25,000 UNIT Q24H 06/01 1730 AC 06/01 (Porcine) IV 1846 Sodium Chloride 500 ML Heparin Sodium 5,000 UNIT .STK-MED ONE 06/01 1726 DC (Porcine) IV 06/01 1727 Heparin Sodium 2,500 UNIT ONCE ONE 06/01 1715 DC 06/01 (Porcine) IV 06/01 1716 1846 Heparin Sodium/ 25,000 UNIT Q24H 06/01 1715 DC Dextrose IV Dextrose/Water 500 ML Insulin Aspart 0 TIDAC 05/28 0800 AC 06/01 SC 1733 Levothyroxine Sodium 0.05 MG DAILY AC 05/29 0700 AC 06/02 PO 0516 Lidocaine 1 PAT DAILY PRN 06/02 0800 AC EXT Lorazepam 0.5 MG DAILY 05/28 1000 AC 06/01 PO 06/04 0959 0522 Mirtazapine 7.5 MG QPM 05/28 2200 AC 06/01 PO 2210 Ondansetron HCl 4 MG Q6P PRN 05/28 0230 AC IV Patient Medication 1 ED ONE ONE 06/01 1700 DC Teaching ED 06/01 1701 Prednisone 5 MG DAILY 05/28 1000 AC 06/01 PO 1057 Warfarin Sodium 2 MG COUMADIN 1700 ONE 06/01 191 DC 06/01 PO 06/01 Results Last 48 Hrs of Labs/Mics: Laboratory Tests 06/02/17 0650: Anion Gap 9, Estimated GFR 18 L, BUN/Creatinine Ratio 14.0, Iron 39, TIBC 261 L, Ferritin Pending, Vitamin B12 Pending, Folate Pending, PT 15.4 H, INR 1.41 H, APTT > 120 *H, CBC w Diff NO MAN DIFF REQ, RBC 2.72 L, MCV 100.0 H, MCH 32.6 H, MCHC 32.6 L, RDW 15.5 H, MPV 8.3, Gran % 75.3 H, Lymphocytes % 13.2 L, Monocytes % 8.8, Eosinophils % 2.3, Basophils % 0.4, Absolute Granulocytes 7.5 H, Absolute Lymphocytes 1.3, Absolute Monocytes 0.9 H, Absolute Eosinophils 0.2, Absolute Basophils 0 06/02/17 0120: APTT 82 H 06/01/17 1750: PT 16.5 H, INR 1.51 H 06/01/17 0800: Anion Gap 10, Estimated GFR 18 L, BUN/Creatinine Ratio 14.8, CBC w Diff NO MAN DIFF REQ, RBC 2.88 L, MCV 100.1 H, MCH 32.0 H, MCHC 31.9 L, RDW 15.3 H, MPV 8.0, Gran % 76.7 H, Lymphocytes % 13.0 L, Monocytes % 8.3, Eosinophils % 1.7, Basophils % 0.3, Absolute Granulocytes 7.1 H, Absolute Lymphocytes 1.2, Absolute Monocytes 0.8 H, Absolute Eosinophils 0.2, Absolute Basophils 0 Assessment/Plan Assessment/Plan Assessment: 1. Atrial fibrillation 2.Intermediate probability of PE on V/Q scan. Asymptomatic and hemodynamically stable 3. Pulmonary hypertension 5. Peripheral venous disease with history of DVT 6. Macrocytic anemia 7. Acute on chronic renal insufficiency 8. Lung mass on CT scan 9. Pleural effusions noted on CT Plan: * Cardiac status is stable, with afib remaining rate controlled * Continue heme reccomendation of coumadin with heparin bridge for the treatment of probable PE (unsure wether its new vs chronic) and for afib. In the setting of kidney insufficiency, a NOAC will not be feasible. * Lung mass f/u per pulmonology,onc, and medical team * Discussed with cardiology attending, formal attending note to follow. Continue telemetry? Yes Problem List: 1. [id number] kidney injury 2. Paroxysmal A-fib 3. Lung mass Karen MELÉNDEZ,Les Cui 06/02/17 1513: Assessment/Plan Assessment/Plan Attending addendum Patient seen and examined. I agree with the plan as outlined above.
--- NOTE | 2017-06-02 06:52 | Cons- Cardiology ---
General Information and HPI Allergies/Medications Allergies: Coded Allergies: clarithromycin (From BIAXIN) (Severe, DIGESTIVE SHUTDOWN, TREMORS 05/27/17) acetaminophen (From ULTRACET) (DIGESTIVE PROBLEMS 05/27/17) amoxicillin (DIGESTIVE PROBLEMS 05/27/17) aspirin (From DARVON COMPOUND-65) (SEVERE VOMITING 05/27/17) berberine (LOOSE EXPLOSIVE BOWELS 05/27/17) caffeine (From DARVON COMPOUND-65) (SEVERE VOMITING 05/27/17) duloxetine (DIGESTIVE PROBLEMS 05/27/17) escitalopram (From LEXAPRO) (NAUSEA/DEPRESSION 05/27/17) fluconazole (From DIFLUCAN) (CONSTANT NAUSEA 05/27/17) fondaparinux (From ARIXTRA) (DIGESTIVE SHUTDOWN, TREMORS 05/27/17) gabapentin (From NEURONTIN) (DIGESTIVE PROBLEMS 05/27/17) hydromorphone (VERY POOR PAIN RELIEF 05/27/17) hyoscyamine (OPPOSITE EFFECTS 05/27/17) imipramine (NAUSEA/DEPRESSION 05/27/17) meperidine (VOMITING 05/27/17) metformin (NAUSEA, BLADDER LEAKAGE 05/27/17) oxychlorosene (GI DISTRESS 11/06/16) oxycodone (NAUSEA, TREMORS, GI UPSET 05/27/17) paroxetine (From PAXIL) (VAGINITIS MONILIASIS 05/27/17) propafenone (NAUSEA, INCONTINENCE, DIZZINESS, TREMORS, SLEEPINESS 05/27/17) propoxyphene (VOMITING 11/06/16) sertraline (From ZOLOFT) (DEPRESSION/NAUSEA 05/27/17) sotalol (NAUSEA, INCONTINENCE, DIZZINESS, TREMORS, SLEEPINESS 05/27/17) tizanidine (DIZZINESS, BLACK OUT, DISORIENTED 05/27/17) tramadol (DIGESTIVE SHUTDOWN, TREMORS 05/27/17) Uncoded Allergies: KELP (SEVERE CHEST PAIN 05/27/17) Home Med List: Acetaminophen 500 MG TABLET 1 TAB PO AD PAIN (Reported) Alpha Lipoic Acid 600 MG CAPSULE 1 CAP PO DAILY SUPPLEMENT (Reported) Apixaban (Eliquis) 5 MG TABLET 1 TAB PO BID BLOOD THINNER (Reported) [ARTICHOKE LEAF] 1 CAP PO DAILY SUPPLEMENT (Reported) Ascorbic Acid (Vitamin C) (Unknown Strength) CAPSULE (Unknown Dose) PO DAILY SUPPLEMENT (Reported) Biotin 1,000 MCG TAB.CHEW 1 TAB PO DAILY SUPPLEMENT (Reported) Cholecalciferol (Vitamin D3) (Vitamin D3) 5,000 UNIT TABLET 1 TAB PO DAILY VITAMIN SUPPORT (Reported) Chrm/Viridiana/ Bt-Org Peel/Gr T (Apple Cider Vinegar Plus Tb) (Unknown Strength) TABLET (Unknown Dose) PO DAILY SUPPLEMENT (Reported) Cider Vinegar (Apple Cider Vinegar) (Unknown Strength) TABLET (Unknown Dose) PO QHS PRN SUPPLEMENT (Reported) Cod Liver Oil 1 EACH CAPSULE 1 CAP PO DAILY SUPPLEMENT (Reported) Cyanocobalamin (Vitamin B-12) 1,000 MCG TABLET 1 TAB PO DAILY VITAMIN SUPPORT (Reported) Furosemide 20 MG TABLET 0.5 TAB PO DAILY WATER RETENTION (Reported) Gamma-Aminobutyric Acid (Aminobutyric Acid) 1 GM POWDER 500 MG PO DAILY SUPPLEMENT (Reported) Selene Root (Unknown Strength) CAPSULE (Unknown Dose) PO QHS PRN SUPPLEMENT ( Reported) Glipizide (Glipizide ER) 5 MG TAB.ER.24 1 TAB PO DAILY DIABETES (Reported) Hydrocodone/Acetaminophen (Hydrocodon-Acetaminophen 5-325) 5 MG-325 MG TABLET 1 TAB PO BID PAIN (Reported) [DILLAN'S LEG CRAMPS] 1 TAB PO PRN LEG CRAMPS - OTC (Reported) Lactobacillus Acidophilus (Probiotic) (Unknown Strength) CAPSULE (Unknown Dose ) PO DAILY SUPPLEMENT (Reported) Levothyroxine Sodium 75 MCG TABLET 1 TAB PO DAILY AC THYROID (Reported) Levothyroxine Sodium (Synthroid) 50 MCG TABLET 0.05 MG PO DAILY AC thyroid Lidocaine 5 % ADH..PATCH 1 PAT TOP DAILY PAIN (Reported) Lorazepam (Ativan) 0.5 MG TABLET 1 TAB PO DAILY SLEEP/TREMORS/STOMACH PROBLEMS (Reported) Magnesium Oxide (Magnesium) 500 MG CAPSULE 1 CAP PO DAILY SUPPLEMENT ( Reported) Mirtazapine 7.5 MG TABLET 1 TAB PO QPM SLEEP/ANXIETY (Reported) Multivitamin With Minerals (Multivitamins With Minerals) 1 EACH TABLET 1 TAB PO DAILY VITAMIN SUPPORT (Reported) Om3/Dha/Epa/Cod Liver Oil/A/D3 (Cod Liver Oil Softgel) 240-1,000MG CAPSULE 1 CAP PO DAILY SUPPLEMENT (Reported) Potassium Gluconate (Potassium) 595 MG (99 MG) TABLET 1 TAB PO BID SUPPLEMENT (Reported) Prednisone 5 MG TABLET 1 TAB PO QAM ARTHRITIS (Reported) Sour Thompson Extract (Tart Thompson Extract) (Unknown Strength) CAPSULE (Unknown Dose) PO DAILY SUPPLEMENT (Reported) Ubidecarenone (Co Q-10) 100 MG CAPSULE 1 CAP PO DAILY SUPPLEMENT (Reported) Vitamin B Complex 1 EACH CAPSULE 1 CAP PO DAILY SUPPLEMENT (Reported) Past History Travel History Traveled to [place] past 21 day No Medical History Blood Transfusion Hx: No Neurological: NONE EENT: NONE Cardiovascular: AFIB Respiratory: NONE Gastrointestinal: NONE Hepatic: NONE Renal: NONE Musculoskeletal: fibromyalgia Psychiatric: NONE Endocrine: diabetes, hyperthyroidism Blood Disorders: NONE Cancer(s): NONE 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 Home Smoking Status: Never Smoked ETOH Use: denies use, 6 Illicit Drug Use: denies illicit drug use Assessment/Plan Consult Acknowledgment - Thank you for your consult request.
--- NOTE | 2017-06-02 07:12 | PN- Housestaff ---
Hiram MELÉNDEZ,Lyndsay 06/02/17 0712: Subjective Follow-up For: Pulmonary hypertension PE accidentaly discovered lung mass anemai gastroenteritis Acute kidney injury-slowly improving Complaints: pain scale (0-10) Tele-Events Since Last Visit: Aflutter,70-85, QRS 0.08, CT 0.1, no overnight events Subjective: Patient was seen and examined at bedside, she reports back pain and lower extremity pain, inability to sleep because of the pain. She denies any cough, fever, chills, nausea, vomiting, diarrhea or constipation. Review of Systems Constitutional: Reports: see HPI. Objective Last 24 Hrs of Vital Signs/I&O Vital Signs Date Time Temp Pulse Resp B/P B/P Pulse O2 O2 Flow FiO2 Mean Ox Delivery Rate 06/02 0630 98.1 85 20 156/78 95 06/01 2151 98.0 84 18 148/80 96 06/01 1600 95 Room Air 06/01 1417 98.4 64 20 160/84 95 Room Air Intake & Output 06/02 1600 06/02 0800 06/02 0000 Intake Total 328 620 Output Total Balance 328 620 Intake, IV 208 Intake, Oral 120 620 Patient 197 lb Weight Weight Bed scale Measurement Method Physical Exam General Appearance: Alert, Oriented X3, Cooperative, No Acute Distress HEENT: Atraumatic, PERRLA, EOMI, Mucous Membr. moist/pink Neck: Supple, No JVD Cardiovascular: Normal S1, Normal S2, No Murmurs Lungs: Clear to Auscultation Abdomen: Normal Bowel Sounds, Soft, No Tenderness Neurological: Normal Speech, Strength at 5/5 X4 Ext, Normal Tone Extremities: No Clubbing, No Cyanosis, No Edema Vascular: Normal Pulses Sepsis Peripheral Pulse Location: Radial Assessment/Plan Assessment: 86 YO F non smoker with PMH of A.fib not on anticoagulation, DVT on eliquis, DM, PVD s/p stent placement, fibromyelgia and hypothyroidism was brought previously with chief complaint of nausea, vomiting and diarrhea since yesterday afternoon. Echo showed significant pulmonary hypertension with right ventricular systolic pressure of at least 60 mmHg..Patient is saturating at 95 at room air on denies any chest pain VQ scan showed features of pulmonary embolus with Multiple subsegmental perfusion defects are present which appear mismatched on the ventilation images. CT chest showed pulmonary parenchymal mass in the right upper lobe extending along the margin of the major fissure in the posterior and lateral aspects of the margin of right upper lobe Pulmonary hypertension/pulmonary embolus/lung mass Continue IV heparin drip and transition to Coumadin as per hematology recommendation Close monitoring of PT, INR, PTT Follow-up on Doppler lower extremity to rule out new DVT Guaiac all stool Pulmonary recommendation appreciated Hematology consult appreciated Paroxysmal A. fib: -Continue to observe on telemetry -Trops/EKG negative -Continue levothyroxine 50 mEq daily -Continue IV heparin drip and transition to Coumadin -Cardiology recommendations appreciated Acute gastroenteritis: Improved Leukocytosis resolved -No more diarrhea during hospital stay. -encourage oral intake. -Antiemetic medication when necessary -C. difficile was negative Acute on chronic kidney injury: Slowly improving -Could be Precipitated by acute loss of fluid by gastroenteritis or due to contrast-induced kidney injury as patient got stent placement 3 weeks back. Patient's baseline creatinine is 1.4 -Monitor input and output -No nephrotoxic medications -Hold Lasix for now that can precipitate kidney injury. -Nephrology recommendations appreciated Right femoral vein DVT: Vascular surgery consultation appreciated Continue with current anticoagulation History of diabetes: Fingerstick glucose 202, 228 -Continue to hold her home medication -Accu-Cheks -Insulin NovoLog according to sliding scale during hospital stay. History of fibromyalgia: -Continue home medications History of hypothyroidism: -Continue levothyroxine at 50mcg -TSH and free T4 Anemia Stable H&H -Macrocytic with MCV 100 -Follow-up on folate, vitamin B12, iron studies -Close monitoring of CBCs DVT prophylaxis: - mechanical and IV heparin CODE STATUS: DNR/DNI Problem List: 1. Pulmonary hypertension 2. DVT (deep venous thrombosis) 3. Lung mass 4. Anemia 5. Paroxysmal A-fib 6. Uniwl-su-gwyptxr kidney injury Pain Ratin Pain Location: lower back Pain Goal: Pain 4 or less Pain Plan: pathway Tomorrow's Labs & Rationales: cbc bep INR [place] 06/02/17 1332: Attending MD Review Statement Attending Statement Attending MD Statement: examined this patient, discuss w/resident/PA/SECURITY SOLUTIONS ARCHITECT, agreed w/resident/PA/SECURITY SOLUTIONS ARCHITECT, reviewed EMR data (avail), discussed with nursing, discussed with case mgmt Attending Assessment/Plan: CT chest showed mass in RUL and mediastinal LAP, d/w pt the findings. pt does not want any workup for the mass. D/w pt the v/q scan findings and explained why we switched her to coumadin and heparin drip. will f/u on ultrasound of LE for DVT
--- NOTE | 2017-06-02 07:18 | PN- Nephrology ---
Assessment/Plan Nephrology Assessment: JANNETH - Cr stable. w/u of pulm HTN underway. Dr. Wyman's input greatly appreciated. CT with RUL mass. She complains of lower back/flank pain. On exam I suspect this is musculoskeletal but given CVA tenderness (entire lower back) would check UA and urine cultures. w/u of pulmonary mass per Dr. Wyman. Robles Connelly MD. Suggestion: . Subjective Subjective: F sitting in chair. had rough night without sleep (was woken up twice - battery change then phlebotomy) around 1-2 AM now sitting in chair. I came to see her yesterday but she was at testing (? CT scan). Dr Wyman's note read and greatly appreciated. Objective Vital Signs and I&Os F sitting in chair BP 148/80 84 98 Lungs clear Cor RRR Abd soft Back bilat lowerback/flank tenderness Ext 1+edema Results Pertinent Lab Results: Labs pending today. Cr 2.5 yesterday. Imaging/Other Studies: CT chest RUL pulmonary mass.
[2017-06-02 08:03] LABS: ABSOLUTE BASOPHIL COUNT 0 /CUMM (0.0-0.2); ABSOLUTE EOSINOPHIL COUNT 0.2 /CUMM (0.0-0.7); ABSOLUTE GRANULOCYTE CT 7.5 /CUMM (1.4-6.5); ABSOLUTE LYMPH COUNT 1.3 /CUMM (1.2-3.4); ABSOLUTE MONOCYTE COUNT 0.9 /CUMM (0.10-0.60); BASOPHIL % 0.4 % (0.0-2.0); EOSINOPHIL % 2.3 % (0-5); GRANULOCYTE % 75.3 % (42.2-75.2); HEMATOCRIT 27.2 % (37-47); MEAN CORPUSCULAR HGB 32.6 PG (27.0-31.0); MEAN CORPUSCULAR HGB CONC 32.6 G/DL (33.0-37.0); MEAN PLATELET VOLUME 8.3 FL (7.4-10.4); PLATELET COUNT 192 /CUMM (130-400); RBC DISTRIBUTION WIDTH 15.5 % (11.5-14.5); RED BLOOD CELL CT 2.72 /CUMM (4.20-5.40)
[2017-06-02 08:31] LABS: PT 15.4 SEC (9.4-12.5)
[2017-06-02 08:43] LABS: PTT > 120 SEC (25-37)
--- NOTE | 2017-06-02 09:23 | PN- Hematology ---
Subjective Subjective: She was unable to get much sleep overnight. She continues to have some back pain and leg pain. She has no fever or chills. She has no nausea or vomiting. She denies any diarrhea. Review of Systems: Constitutional: Denies: chills, fever, weakness, unexplained weight loss. Cardiovascular: Denies: chest pain. Respiratory: Denies: short of breath. GI: Reports: diarrhea, nausea, vomiting. Genitourinary: Denies: dysuria. Hematologic/Endocrine: Denies: bruising, bleeding. All Other Systems: Reviewed and Negative Objective Vital Signs and I&Os Vital Signs Date Time Temp Pulse Resp B/P B/P Pulse O2 O2 Flow FiO2 Mean Ox Delivery Rate 06/02 0630 98.1 85 20 156/78 95 06/01 2151 98.0 84 18 148/80 96 06/01 1600 95 Room Air 06/01 1417 98.4 64 20 160/84 95 Room Air Intake & Output 06/02 1600 06/02 0800 06/02 0000 06/01 1600 06/01 0800 06/01 0000 Intake Total 328 300 820 360 540 Output Total Balance 328 300 820 360 540 Intake, IV 208 Intake, Oral 120 300 820 360 540 Patient 89.358 kg 89.925 kg Weight Weight Bed scale Bed scale Measurement Method Physical Exam: General Appearance: well developed/nourished, no apparent distress, alert, awake , comfortable, obese Head: atraumatic, normal appearance Ears, Nose, Throat: normal pharynx, normal ENT inspection Respiratory: normal breath sounds, chest non-tender, no respiratory distress, quiet respiration, decreased breath sounds Cardiovascular: regular rate/rhythm, murmur Gastrointestinal: normal bowel sounds, soft, non-tender Extremities: pedal edema, compression stocking in place Neurologic/Psych: awake, alert, oriented x 3 Skin: warm/dry Current Medications: Current Medications Sig/Rich Start time Last Medication Dose Route Stop Time Status Admin Acetaminophen 500 MG Q6P PRN 06/01 1100 AC 06/02 PO 0315 Acetaminophen 325 MG Q6P PRN 05/31 0745 DC 06/01 PO 0432 Acetaminophen 500 MG QPM 05/29 2200 DC 05/31 PO 2253 Apixaban 2.5 MG BID 05/29 220 DC 06/01 PO 1057 Heparin Sodium 25,000 UNIT Q24H 06/01 1730 AC 06/01 (Porcine) IV 1846 Sodium Chloride 500 ML Heparin Sodium 5,000 UNIT .STK-MED ONE 06/01 1726 DC (Porcine) IV 06/01 1727 Heparin Sodium 2,500 UNIT ONCE ONE 06/01 1715 DC 06/01 (Porcine) IV 06/01 1716 1846 Heparin Sodium/ 25,000 UNIT Q24H 06/01 1715 DC Dextrose IV Dextrose/Water 500 ML Insulin Aspart 0 TIDAC 05/28 0800 AC 06/01 SC 1733 Levothyroxine Sodium 0.05 MG DAILY AC 05/29 0700 AC 06/02 PO 0516 Lidocaine 1 PAT DAILY PRN 06/02 0800 AC EXT Lorazepam 0.5 MG DAILY 05/28 1000 AC 06/01 PO 06/04 0959 0522 Mirtazapine 7.5 MG QPM 05/28 2200 AC 06/01 PO 2210 Ondansetron HCl 4 MG Q6P PRN 05/28 0230 AC IV Patient Medication 1 ED ONE ONE 06/01 1700 DC Teaching ED 06/01 1701 Prednisone 5 MG DAILY 05/28 1000 AC 06/01 PO 1057 Warfarin Sodium 2 MG COUMADIN 1700 ONE 06/01 191 DC 06/01 PO 06/01 Results Last 24 Hours of Lab Results: Laboratory Tests 06/02 06/02 06/01 0650 0120 1750 Chemistry Sodium (137 - 145 mmol/L) 141 Potassium (3.5 - 5.1 mmol/L) 4.4 Chloride (98 - 107 mmol/L) 108 H Carbon Dioxide (22 - 30 mmol/L) 24 Anion Gap (5 - 16) 9 BUN (7 - 17 mg/dL) 35 H Creatinine (0.5 - 1.0 mg/dL) 2.5 H Estimated GFR (>60 ml/min) 18 L BUN/Creatinine Ratio (7 - 25 %) 14.0 Iron (37 - 170 ug/dL) 39 TIBC (265 - 497 ug/dL) 261 L Ferritin (11.1 - 264 ng/mL) Pending Vitamin B12 (239 - 931 pg/mL) Pending Folate (2.76 - 20.0 ng/mL) Pending Coagulation PT (9.4 - 12.5 SEC) 15.4 H 16.5 H INR (0.90 - 1.19) 1.41 H 1.51 H APTT (25 - 37 SEC) > 120 *H 82 H Hematology CBC w Diff NO MAN DIFF REQ WBC (4.8 - 10.8 /CUMM) 10.0 RBC (4.20 - 5.40 /CUMM) 2.72 L Hgb (12.0 - 16.0 G/DL) 8.9 L Hct (37 - 47 %) 27.2 L MCV (81.0 - 99.0 FL) 100.0 H MCH (27.0 - 31.0 PG) 32.6 H MCHC (33.0 - 37.0 G/DL) 32.6 L RDW (11.5 - 14.5 %) 15.5 H Plt Count (130 - 400 /CUMM) 192 MPV (7.4 - 10.4 FL) 8.3 Gran % (42.2 - 75.2 %) 75.3 H Lymphocytes % (20.5 - 51.1 %) 13.2 L Monocytes % (1.7 - 9.3 %) 8.8 Eosinophils % (0 - 5 %) 2.3 Basophils % (0.0 - 2.0 %) 0.4 Absolute Granulocytes (1.4 - 6.5 /CUMM) 7.5 H Absolute Lymphocytes (1.2 - 3.4 /CUMM) 1.3 Absolute Monocytes (0.10 - 0.60 /CUMM) 0.9 H Absolute Eosinophils (0.0 - 0.7 /CUMM) 0.2 Absolute Basophils (0.0 - 0.2 /CUMM) 0 Assessment/Plan Hematology Assessment/Recommendations: Ms. Grant is an 86-year-old female with history of PAF on apixaban, DVT diagnosed in 04/2017, CKD stage III, PVD s/p external iliac vein stent, DM, fibromyalgia, and hypothyroidism who presented to the [facility] ED with nausea, vomiting, and diarrhea. She was was noted to have gastroenteritis and acute on chronic kidney injury. She was admitted for gastroenteritis which has improved. Renal injury is stable. Nephrology is following. Anemia is stable. Iron studies are pending. B12 and folate are pending. She is being transitioned to warfarin due to possible PE and renal injury. Lung mass evaluation is pending. DVT with possible PE: -US of the BLE for DVT evaluation -heparin bridge to warfarin Anemia: -follow up B12, folate, and iron evlauation -consider EZEQUIEL Lung mass: -pulmonary evaluation -? bronchoscopy -? thoracic surgery evaluation -likely will need biopsy JANNETH: -avoid nephrotoxic drugs Please call [phone] with any questions or concerns. Problem List: 1. Pulmonary hypertension 2. DVT (deep venous thrombosis) 3. Lung mass 4. Anemia
--- NOTE | 2017-06-02 15:23 | ULTRASOUND REPORT ---
EXAMINATION: US TRIPLEX OF LOWER EXTREMITIES, BILATERAL CLINICAL INFORMATION: Pulmonary embolus. Assess for DVT. COMPARISON: None. TECHNIQUE: Color-flow triplex imaging with spectral analysis and compression Doppler were performed on the bilateral lower extremities. FINDINGS: Right lower extremity: There is partially occlusive thrombus in the right common femoral vein to the mid femoral vein. Flow is demonstrated in the popliteal vein. The calf veins are poorly assessed due to edema in the patient's lower extremity. Left lower extremity: Respiratory variation, normal compression and augmented flow are noted throughout left lower extremity. The visualized common femoral vein, superficial femoral vein, profunda femoral vein and popliteal vein show no evidence of deep venous thrombosis. The calf veins are poorly assessed due to edema in the patient's lower extremity. There are no focal fluid collections. IMPRESSION: 1. The study demonstrates partially occlusive thrombus in the right common femoral Main extending to the mid femoral vein. 2. No DVT is demonstrated in the left lower extremity. 3. Evaluation of the calf vessels is suboptimal due to patient body habitus and edema. There are no focal fluid collections. 4. This critical result was discussed with Gautam Paez by telephone on 06/02/2017 2:50 PM and it was ascertained that the content and urgency of the report was understood at the time of direct communication.
--- NOTE | 2017-06-02 15:42 | Event Note ---
Event Note Event Note: Doppler ultrasound showed partially occlusive thrombus in the right common femoral Main extending to the mid femoral vein. Vascular surgery Dr. Hairston was consulted, he recommended to continue with the current anticoagulation, to discharge the patient on oral anticoagulant and to follow up with her vascular surgeon Dr. Mahoney as an outpatient.
[2017-06-02 19:17] LABS: PTT 54 SEC (25-37)
[2017-06-02 22:52] VITALS: BP 130/72
[2017-06-03 05:16] LABS: ABSOLUTE BASOPHIL COUNT 0 /CUMM (0.0-0.2); ABSOLUTE EOSINOPHIL COUNT 0.2 /CUMM (0.0-0.7); ABSOLUTE LYMPH COUNT 1.5 /CUMM (1.2-3.4); ABSOLUTE MONOCYTE COUNT 0.7 /CUMM (0.10-0.60); BASOPHIL % 0.4 % (0.0-2.0); EOSINOPHIL % 2.3 % (0-5); GRANULOCYTE % 70.8 % (42.2-75.2); HEMATOCRIT 27.4 % (37-47); MEAN CORPUSCULAR HGB 32.2 PG (27.0-31.0); MEAN CORPUSCULAR VOLUME 100.5 FL (81.0-99.0); MEAN PLATELET VOLUME 7.9 FL (7.4-10.4); PLATELET COUNT 196 /CUMM (130-400); RBC DISTRIBUTION WIDTH 15.1 % (11.5-14.5); RED BLOOD CELL CT 2.72 /CUMM (4.20-5.40); WHITE BLOOD CELL COUNT 8.5 /CUMM (4.8-10.8)
[2017-06-03 05:18] LABS: PT 14.4 SEC (9.4-12.5)
[2017-06-03 05:21] LABS: PTT 62 SEC (25-37)
[2017-06-03 06:54] VITALS: BP 170/96
--- NOTE | 2017-06-03 08:53 | PN- Hematology ---
Subjective Subjective: She slept a little better last night. She denies any new symptoms this morning. She states she would not be interested in any further work up for her lung mass. Review of Systems: Constitutional: Denies: chills, fever, weakness, unexplained weight loss. Cardiovascular: Denies: chest pain. Respiratory: Denies: short of breath. GI: Denies: nausea or vomiting Genitourinary: Denies: dysuria. Hematologic/Endocrine: Denies: bruising, bleeding. All Other Systems: Reviewed and Negative Objective Vital Signs and I&Os Vital Signs Date Time Temp Pulse Resp B/P B/P Pulse O2 O2 Flow FiO2 Mean Ox Delivery Rate 06/03 0654 98.5 80 20 170/96 94 Room Air 06/02 2252 98.6 84 18 130/72 95 Intake & Output 06/03 1600 06/03 0800 06/03 0000 06/02 1600 06/02 0800 06/02 0000 Intake Total 120 200 300 328 620 Output Total Balance 120 200 300 328 620 Intake, IV 208 Intake, Oral 120 200 300 120 620 Number 1 Bowel Movements Patient 86.636 kg 89.358 kg Weight Weight Bed scale Measurement Method Physical Exam: General Appearance: well developed/nourished, no apparent distress, alert, awake , comfortable, obese Head: atraumatic, normal appearance Ears, Nose, Throat: normal pharynx, normal ENT inspection Respiratory: normal breath sounds, chest non-tender, no respiratory distress, quiet respiration, decreased breath sounds Cardiovascular: regular rate/rhythm, murmur Gastrointestinal: normal bowel sounds, soft, non-tender Extremities: pedal edema, compression stocking in place Neurologic/Psych: awake, alert, oriented x 3 Skin: warm/dry Current Medications: Current Medications Sig/Rich Start time Last Medication Dose Route Stop Time Status Admin Acetaminophen 500 MG Q6P PRN 06/01 1100 AC 06/03 PO 0444 Furosemide 40 MG .STK-MED ONE 06/02 1807 DC IV 06/02 1808 Heparin Sodium 25,000 UNIT Q24H 06/01 1730 AC 06/02 (Porcine) IV 2106 Sodium Chloride 500 ML Hydrocodone Bitart/ 1 TAB BID 06/02 2200 AC 06/02 Acetaminophen PO 2231 Insulin Aspart 0 TIDAC 05/28 0800 AC 06/02 SC 1800 Levothyroxine Sodium 0.05 MG DAILY AC 05/29 0700 AC 06/03 PO 0642 Lidocaine 1 PAT DAILY PRN 06/02 0800 AC 06/02 EXT 0927 Lorazepam 0.5 MG DAILY 05/28 1000 AC 06/02 PO 06/04 0959 0910 Mirtazapine 7.5 MG QPM 05/28 2200 AC 06/02 PO 2103 Ondansetron HCl 4 MG Q6P PRN 05/28 0230 AC IV Prednisone 5 MG DAILY 05/28 1000 AC 06/03 PO 0801 Warfarin Sodium 5 MG COUMADIN 1700 ONE 06/03 1700 AC PO 06/03 1701 Warfarin Sodium 5 MG COUMADIN 1700 ONE 06/02 1700 DC 06/02 PO 06/02 1701 1808 Results Last 24 Hours of Lab Results: Laboratory Tests 06/03 06/03 06/02 0425 0425 1800 Chemistry Sodium (137 - 145 mmol/L) 142 Potassium (3.5 - 5.1 mmol/L) 4.5 Chloride (98 - 107 mmol/L) 109 H Carbon Dioxide (22 - 30 mmol/L) 24 Anion Gap (5 - 16) 9 BUN (7 - 17 mg/dL) 32 H Creatinine (0.5 - 1.0 mg/dL) 2.4 H Estimated GFR (>60 ml/min) 19 L BUN/Creatinine Ratio (7 - 25 %) 13.3 Coagulation PT (9.4 - 12.5 SEC) 14.4 H INR (0.90 - 1.19) 1.32 H APTT (25 - 37 SEC) 62 H 54 H Hematology CBC w Diff NO MAN DIFF REQ WBC (4.8 - 10.8 /CUMM) 8.5 RBC (4.20 - 5.40 /CUMM) 2.72 L Hgb (12.0 - 16.0 G/DL) 8.8 L Hct (37 - 47 %) 27.4 L MCV (81.0 - 99.0 FL) 100.5 H MCH (27.0 - 31.0 PG) 32.2 H MCHC (33.0 - 37.0 G/DL) 32.0 L RDW (11.5 - 14.5 %) 15.1 H Plt Count (130 - 400 /CUMM) 196 MPV (7.4 - 10.4 FL) 7.9 Gran % (42.2 - 75.2 %) 70.8 Lymphocytes % (20.5 - 51.1 %) 18.0 L Monocytes % (1.7 - 9.3 %) 8.5 Eosinophils % (0 - 5 %) 2.3 Basophils % (0.0 - 2.0 %) 0.4 Absolute Granulocytes (1.4 - 6.5 /CUMM) 6.0 Absolute Lymphocytes (1.2 - 3.4 /CUMM) 1.5 Absolute Monocytes (0.10 - 0.60 /CUMM) 0.7 H Absolute Eosinophils (0.0 - 0.7 /CUMM) 0.2 Absolute Basophils (0.0 - 0.2 /CUMM) 0 06/02 06/02 1730 1330 Coagulation APTT Cancelled Urines Urine Color (YEL,AMB,STR) YEL Urine Clarity (CLEAR) CLEAR Urine pH (5.0 - 8.0) 6.5 Ur Specific [place] (1.001 - 1.035) 1.010 Urine Protein (NEG,<30 MG/DL) TRACE H Urine Ketones (NEG) NEG Urine Nitrite (NEG) NEG Urine Bilirubin (NEG) NEG Urine Urobilinogen (0.1 - 1.0 EU/dl) 0.2 Ur Leukocyte Esterase (NEG) NEG Ur Microscopic SEDIMENT EXAMINED Urine RBC (0 - 5 /HPF) RARE Urine WBC (0 - 2 /HPF) 1-3 H Ur Epithelial Cells (NONE,FEW) MOD H Urine Bacteria (NEG/NONE) MOD H Urine Mucus (FEW,NONE) RARE Urine Hemoglobin (NEG) TRACE-LYSED Urine Glucose (N MG/DL) 250 H Recent Imaging Studies: US of the lower extremities 06/02/2017: 1. The study demonstrates partially occlusive thrombus in the right common femoral Main extending to the mid femoral vein. 2. No DVT is demonstrated in the left lower extremity. 3. Evaluation of the calf vessels is suboptimal due to patient body habitus and edema. There are no focal fluid collections. Assessment/Plan Hematology Assessment/Recommendations: Ms. Grant is an 86-year-old female with history of PAF on apixaban, DVT diagnosed in 04/2017, CKD stage III, PVD s/p external iliac vein stent, DM, fibromyalgia, and hypothyroidism who presented to the [facility] ED with nausea, vomiting, and diarrhea. She was was noted to have gastroenteritis and acute on chronic kidney injury. She was admitted for gastroenteritis which has improved. Renal injury is stable. Nephrology is following. Anemia is stable. Iron studies suggest anemia of chronic kidney disease. B12 and folate are normal. She is being transitioned to warfarin due to possible PE and renal injury. Lung mass evaluation is pending. Patient expressed that she is not interested in working up the mass. DVT with possible PE: -heparin bridge to warfarin Anemia: -consider EZEQUIEL, will need to discuss this with her bottomer operator Lung mass: -pulmonary evaluation -likely will need biopsy -follow up with patient regarding her desire to not work up JANNETH: -avoid nephrotoxic drugs Please call [phone] with any questions or concerns. Problem List: 1. DVT (deep venous thrombosis) 2. Pulmonary hypertension 3. Lung mass 4. Paroxysmal A-fib 5. Anemia 6. [id number] kidney injury
--- NOTE | 2017-06-03 10:28 | PN- Housestaff ---
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 Objective Last 24 Hrs of Vital Signs/I&O Vital Signs Date Time Temp Pulse Resp B/P B/P Pulse O2 O2 Flow FiO2 Mean Ox Delivery Rate 06/03 1433 98.9 84 20 162/80 94 Room Air 06/03 0654 98.5 80 20 170/96 94 Room Air 06/02 2252 98.6 84 18 130/72 95 Intake & Output 06/03 1600 06/03 0800 06/03 0000 Intake Total 550 120 500 Output Total Balance 550 120 500 Intake, Oral 550 120 500 Patient 191 lb Weight Physical Exam General Appearance: Alert, Oriented X3, Cooperative, No Acute Distress HEENT: Atraumatic, PERRLA, EOMI, Mucous Membr. moist/pink Neck: Supple, No JVD Cardiovascular: Normal S1, Normal S2, No Murmurs Lungs: Clear to Auscultation Abdomen: Normal Bowel Sounds, Soft, No Tenderness Neurological: Normal Speech Extremities: No Clubbing, No Cyanosis, No Edema Vascular: Normal Pulses Assessment/Plan Assessment: 86 YO F non smoker with PMH of A.fib not on anticoagulation, DVT on eliquis, DM, PVD s/p stent placement, fibromyelgia and hypothyroidism was brought previously with chief complaint of nausea, vomiting and diarrhea since yesterday afternoon. Echo showed significant pulmonary hypertension with right ventricular systolic pressure of at least 60 mmHg..Patient is saturating at 95 at room air on denies any chest pain VQ scan showed features of pulmonary embolus with Multiple subsegmental perfusion defects are present which appear mismatched on the ventilation images. CT chest showed pulmonary parenchymal mass in the right upper lobe extending along the margin of the major fissure in the posterior and lateral aspects of the margin of right upper lobe Pulmonary hypertension/pulmonary embolus/lung mass Right femoral vein DVT: Patient mentioned that she is interested to explore her management choices however she is not willing to do any invasive procedures. Continue IV heparin drip and transition to Coumadin as per hematology recommendation Close monitoring of PT, INR, PTT Follow-up on Doppler lower extremity to rule out new DVT Guaiac all stool Pulmonary recommendation appreciated Hematology recommendation appreciated Vascular consult appreciated (spoke with Dr. Ordaz over the phone who recommended to continue with the current anticoagulation) Paroxysmal A. fib: -Continue to observe on telemetry -Trops/EKG negative -Continue levothyroxine 50 mEq daily -Continue IV heparin drip and transition to Coumadin -Cardiology recommendations appreciated Acute gastroenteritis: Improved Leukocytosis resolved -No more diarrhea during hospital stay. -encourage oral intake. -Antiemetic medication when necessary -C. difficile was negative Acute on chronic kidney injury: Slowly improving -Could be Precipitated by acute loss of fluid by gastroenteritis or due to contrast-induced kidney injury as patient got stent placement 3 weeks back. Patient's baseline creatinine is 1.4 Markedly increased kappa light chains which might be responsible for her kidney injury Follow-up on urine protein electrophoresis -Monitor input and output -No nephrotoxic medications -Hold Lasix for now that can precipitate kidney injury. -Nephrology recommendations appreciated History of diabetes: Fingerstick glucose 219,123 -Continue to hold her home medication -Accu-Cheks -Insulin NovoLog according to sliding scale during hospital stay. History of fibromyalgia: -Continue home medications History of hypothyroidism: -Continue levothyroxine at 50mcg -TSH and free T4 Anemia Stable H&H -Macrocytic with MCV 100 -Follow-up on folate, vitamin B12, iron studies -Close monitoring of CBCs DVT prophylaxis: - mechanical and IV heparin CODE STATUS:DNR/DNI Problem List: 1. Pulmonary hypertension 2. DVT (deep venous thrombosis) 3. Lung mass 4. Anemia 5. Paroxysmal A-fib Pain Ratin Pain Location: lower back Pain Goal: Pain 4 or less Pain Plan: pathway Tomorrow's Labs & Rationales: cbc bep inr [place] 06/03/17 1425: Attending MD Review Statement Attending Statement Attending MD Statement: examined this patient, discuss w/resident/PA/PAYROLL DIRECTOR, agreed w/resident/PA/PAYROLL DIRECTOR, reviewed EMR data (avail), discussed with nursing, discussed with case mgmt Attending Assessment/Plan: ? Myeloma based on [place] light chain being high and Increased ratio and JANNETH on ckd. Her JANNETH may be secondary to ATN due to light chain disease and contrast administration. d/w nephrology. will d/w heme/onc the light chain analysis results. d/w pt the care plan.
[2017-06-03 14:33] VITALS: BP 162/80
--- NOTE | 2017-06-03 16:40 | PN- Pulmonary ---
Subjective HPI/Critical Care Issues: Patient seen and examined this morning. I was asked to return to discuss to CAT scan findings for this patient. Objective Current Medications: Current Medications Sig/Rich Start time Last Medication Dose Route Stop Time Status Admin Acetaminophen 500 MG Q6P PRN 06/01 1100 AC 06/03 PO 0444 Furosemide 40 MG .STK-MED ONE 06/02 1807 DC IV 06/02 1808 Heparin Sodium 25,000 UNIT Q24H 06/01 1730 AC 06/02 (Porcine) IV 2106 Sodium Chloride 500 ML Hydrocodone Bitart/ 1 TAB BID 06/02 2200 AC 06/03 Acetaminophen PO 1505 Insulin Aspart 0 TIDAC 05/28 0800 AC 06/03 SC 1143 Levothyroxine Sodium 0.05 MG DAILY AC 05/29 0700 AC 06/03 PO 0642 Lidocaine 1 PAT DAILY PRN 06/02 0800 AC 06/03 EXT 1107 Lorazepam 0.5 MG DAILY 05/28 1000 AC 06/03 PO 06/11 0958 1143 Mirtazapine 7.5 MG QPM 05/28 2200 AC 06/02 PO 2103 Ondansetron HCl 4 MG Q6P PRN 05/28 0230 AC IV Patient Medication 1 ED ONE ONE 06/03 1245 DC 06/03 Teaching ED 06/03 1246 1244 Prednisone 5 MG DAILY 05/28 1000 AC 06/03 PO 0801 Warfarin Sodium 5 MG COUMADIN 1700 ONE 06/03 1700 AC PO 06/03 1701 Warfarin Sodium 5 MG COUMADIN 1700 ONE 06/02 1700 DC 06/02 PO 06/02 1701 1808 Vital Signs & I&O Last 24 Hrs of Vitals and I&O: Vital Signs Date Time Temp Pulse Resp B/P B/P Pulse O2 O2 Flow FiO2 Mean Ox Delivery Rate 06/03 1433 98.9 84 20 162/80 94 Room Air 06/03 0654 98.5 80 20 170/96 94 Room Air 06/02 2252 98.6 84 18 130/72 95 Intake & Output 06/03 1600 06/03 0800 06/03 0000 Intake Total 550 120 500 Output Total Balance 550 120 500 Intake, Oral 550 120 500 Patient 191 lb 191 lb Weight Exam Other Physical Findings: Generally - Awake, alert Head and neck - normocephalic, atraumatic, EOMI grossly intact Cardiovascular - S1, S2 Lungs - Clear to auscultation bilaterally Abdomen - Bowel sounds positive, soft, non-tender Extremities - without edema Results Last 24 Hrs of Lab Results: Laboratory Tests 06/03/17 1623: APTT Pending 06/03/17 0425: PT 14.4 H, INR 1.32 H 06/03/17 0425: Anion Gap 9, Estimated GFR 19 L, BUN/Creatinine Ratio 13.3, APTT 62 H, CBC w Diff NO MAN DIFF REQ, RBC 2.72 L, MCV 100.5 H, MCH 32.2 H, MCHC 32.0 L, RDW 15.1 H, MPV 7.9, Gran % 70.8, Lymphocytes % 18.0 L, Monocytes % 8.5, Eosinophils % 2.3, Basophils % 0.4, Absolute Granulocytes 6.0, Absolute Lymphocytes 1.5, Absolute Monocytes 0.7 H, Absolute Eosinophils 0.2, Absolute Basophils 0 06/02/17 1800: APTT 54 H 06/02/17 1730: Urine Color YEL, Urine Clarity CLEAR, Urine pH 6.5, Ur Specific [place] 1.010, Urine Protein TRACE H, Urine Ketones NEG, Urine Nitrite NEG, Urine Bilirubin NEG, Urine Urobilinogen 0.2, Ur Leukocyte Esterase NEG, Ur Microscopic SEDIMENT EXAMINED, Urine RBC RARE, Urine WBC 1-3 H, Ur Epithelial Cells MOD H, Urine Bacteria MOD H, Urine Mucus RARE, Urine Hemoglobin TRACE-LYSED, Urine Glucose 250 H Impression/Plan Impression/Plan Impression/Plan: Impression 86 year old woman * RUL mass - possible malignancy, bilateral pleural effusions * pulmonary htn Plan -discussion held with patient, she is not interested in a diagnostic workup or any invasive workup for that matter. 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 she understands that her mass may represent a malignancy and her reasoning for not pursuing a diagnosis is that she would not want to pursue therapy regardless. -this was conveyed to the medical team -i am available for any other questions or issues
[2017-06-03 17:01] LABS: PTT 77 SEC (25-37)
--- NOTE | 2017-06-03 19:08 | PN- Cardiology ---
Subjective Subjective: Shortness of breath is somewhat better. No chest pain. No palpitations. No diaphoresis. clinical research monitor reveals atrial fibrillation. Objective Vital Signs and I&Os Vital Signs Date Time Temp Pulse Resp B/P B/P Pulse O2 O2 Flow FiO2 Mean Ox Delivery Rate 06/03 1433 98.9 84 20 162/80 94 Room Air 06/03 0654 98.5 80 20 170/96 94 Room Air 06/02 2252 98.6 84 18 130/72 95 Intake & Output 06/03 1600 06/03 0800 06/03 0000 06/02 1600 06/02 0800 06/02 0000 Intake Total 550 120 200 300 328 620 Output Total Balance 550 120 200 300 328 620 Intake, IV 208 Intake, Oral 550 120 200 300 120 620 Number 1 Bowel Movements Patient 191 lb 191 lb 197 lb Weight Weight Bed scale Measurement Method Physical Exam: Gen: NAD HEENT: normal Lungs: clear to auscultation, normal resp. effort Heart: RRR, S1, S2, 1 / 6 systolic murmur Abdomen: Soft, nontender, no masses Extremities: No clubbing, cyanosis, or edema. Neuro: Alert and oriented x 3, cranial nerves intact Current Medications: Current Medications Sig/Rich Start time Last Medication Dose Route Stop Time Status Admin Acetaminophen 500 MG Q6P PRN 06/01 1100 AC 06/03 PO 0444 Heparin Sodium 25,000 UNIT Q24H 06/01 1730 AC 06/02 (Porcine) IV 2106 Sodium Chloride 500 ML Hydrocodone Bitart/ 1 TAB BID 06/02 2200 AC 06/03 Acetaminophen PO 1505 Insulin Aspart 0 TIDAC 05/28 0800 AC 06/03 SC 1650 Levothyroxine Sodium 0.05 MG DAILY AC 05/29 0700 AC 06/03 PO 0642 Lidocaine 1 PAT DAILY PRN 06/02 0800 AC 06/03 EXT 1107 Lorazepam 0.5 MG DAILY 05/28 1000 AC 06/03 PO 06/11 0958 1143 Mirtazapine 7.5 MG QPM 05/28 2200 AC 06/02 PO 2103 Ondansetron HCl 4 MG Q6P PRN 05/28 0230 AC IV Patient Medication 1 ED ONE ONE 06/03 1245 DC 06/03 Teaching ED 06/03 1246 1244 Prednisone 5 MG DAILY 05/28 1000 AC 06/03 PO 0801 Warfarin Sodium 5 MG COUMADIN 1700 ONE 06/03 1700 DC 06/03 PO 06/03 1701 1649 Results Last 48 Hrs of Labs/Mics: Laboratory Tests 06/03/17 1623: APTT 77 H 06/03/17 0425: PT 14.4 H, INR 1.32 H 06/03/17 0425: Anion Gap 9, Estimated GFR 19 L, BUN/Creatinine Ratio 13.3, APTT 62 H, CBC w Diff NO MAN DIFF REQ, RBC 2.72 L, MCV 100.5 H, MCH 32.2 H, MCHC 32.0 L, RDW 15.1 H, MPV 7.9, Gran % 70.8, Lymphocytes % 18.0 L, Monocytes % 8.5, Eosinophils % 2.3, Basophils % 0.4, Absolute Granulocytes 6.0, Absolute Lymphocytes 1.5, Absolute Monocytes 0.7 H, Absolute Eosinophils 0.2, Absolute Basophils 0 06/02/17 1800: APTT 54 H 06/02/17 1730: Urine Color YEL, Urine Clarity CLEAR, Urine pH 6.5, Ur Specific [place] 1.010, Urine Protein TRACE H, Urine Ketones NEG, Urine Nitrite NEG, Urine Bilirubin NEG, Urine Urobilinogen 0.2, Ur Leukocyte Esterase NEG, Ur Microscopic SEDIMENT EXAMINED, Urine RBC RARE, Urine WBC 1-3 H, Ur Epithelial Cells MOD H, Urine Bacteria MOD H, Urine Mucus RARE, Urine Hemoglobin TRACE-LYSED, Urine Glucose 250 H 06/02/17 1330: APTT Cancelled 06/02/17 0650: Anion Gap 9, Estimated GFR 18 L, BUN/Creatinine Ratio 14.0, Iron 39, TIBC 261 L, Ferritin 119.0, Vitamin B12 902, Folate > 20.0 H, PT 15.4 H, INR 1.41 H, APTT > 120 *H, CBC w Diff NO MAN DIFF REQ, RBC 2.72 L, MCV 100.0 H, MCH 32.6 H, MCHC 32.6 L, RDW 15.5 H, MPV 8.3, Gran % 75.3 H, Lymphocytes % 13.2 L, Monocytes % 8.8, Eosinophils % 2.3, Basophils % 0.4, Absolute Granulocytes 7.5 H, Absolute Lymphocytes 1.3, Absolute Monocytes 0.9 H, Absolute Eosinophils 0.2 , Absolute Basophils 0 06/02/17 0120: APTT 82 H Assessment/Plan Assessment/Plan Assessment: 1. Atrial fibrillation 2.Intermediate probability of PE on V/Q scan. Asymptomatic and hemodynamically stable 3. Pulmonary hypertension 5. Peripheral venous disease with history of DVT 6. Macrocytic anemia 7. Acute on chronic renal insufficiency 8. Lung mass on CT scan 9. Pleural effusions noted on CT Plan: * Continue IV heparin * Dose warfarin for INR 2 to Continue telemetry? Yes
[2017-06-03 22:53] VITALS: BP 140/90
[2017-06-04 04:37] LABS: PTT 97 SEC (25-37)
[2017-06-04 05:58] VITALS: BP 140/70
--- NOTE | 2017-06-04 07:13 | PN- Housestaff ---
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 Objective Last 24 Hrs of Vital Signs/I&O Vital Signs Date Time Temp Pulse Resp B/P B/P Pulse O2 O2 Flow FiO2 Mean Ox Delivery Rate 06/04 0558 97.8 78 20 140/70 95 06/03 2253 98.6 78 20 140/90 96 Intake & Output 06/04 1600 06/04 0800 06/04 0000 Intake Total 301.7 200 Output Total 200 Balance 301.7 0 Intake, IV 151.7 Intake, Oral 150 200 Output, Urine 200 Patient 195 lb Weight Physical Exam General Appearance: Alert, Oriented X3, Cooperative, No Acute Distress HEENT: Atraumatic, PERRLA, EOMI, Mucous Membr. moist/pink Neck: Supple, No JVD Cardiovascular: Normal S1, Normal S2, No Murmurs Lungs: Clear to Auscultation Abdomen: Normal Bowel Sounds, Soft Neurological: Normal Speech, Strength at 5/5 X4 Ext, Normal Tone Extremities: No Clubbing, No Cyanosis, No Edema Assessment/Plan Assessment: 86 YO F non smoker with PMH of A.fib not on anticoagulation, DVT on eliquis, DM, PVD s/p stent placement, fibromyelgia and hypothyroidism was brought previously with chief complaint of nausea, vomiting and diarrhea since yesterday afternoon. Pulmonary hypertension/pulmonary embolus/lung mass Right femoral vein DVT: Patient mentioned that she is interested to explore her management choices however she is not willing to do any invasive procedures. Continue IV heparin drip and transition to Coumadin as per hematology recommendation Close monitoring of PT, INR, PTT INR today was 1.77, was given Coumadin 3 mg Follow-up on Doppler lower extremity to rule out new DVT Guaiac all stool Pulmonary recommendation appreciated Hematology recommendation appreciated Vascular consult appreciated (spoke with Dr. Ordaz over the phone who recommended to continue with the current anticoagulation) Paroxysmal A. fib: -Continue to observe on telemetry -Trops/EKG negative -Continue levothyroxine 50 mEq daily -Continue IV heparin drip and transition to Coumadin -Cardiology recommendations appreciated Acute gastroenteritis: Improved Leukocytosis resolved -No more diarrhea during hospital stay. -encourage oral intake. -Antiemetic medication when necessary -C. difficile was negative Acute on chronic kidney injury: Slowly improving, creatinine today is 2.3 -Could be Precipitated by acute loss of fluid by gastroenteritis or due to contrast-induced kidney injury as patient got stent placement 3 weeks back. Patient will be advised to avoid contrast material after discharge as much as possible Patient's baseline creatinine is 1.4 Markedly increased kappa light chains which might be responsible for her kidney injury Follow-up on urine protein electrophoresis, patient is incontinent at baseline, Hyatt catheter had to be placed to collect urine for the 24 hour urine protein electrophoresis -Monitor input and output -No nephrotoxic medications -Hold Lasix for now that can precipitate kidney injury. -Nephrology recommendations appreciated History of diabetes: Fingerstick glucose 181,213 -Continue to hold her home medication -Accu-Cheks -Insulin NovoLog according to sliding scale during hospital stay. History of fibromyalgia: -Continue home medications History of hypothyroidism: -Continue levothyroxine at 50mcg -TSH and free T4 Anemia Stable H&H -Macrocytic with MCV 100 -Follow-up on folate, vitamin B12, iron studies -Close monitoring of CBCs DVT prophylaxis: - mechanical and IV heparin CODE STATUS:DNR/DNI Problem List: 1. Pulmonary hypertension 2. DVT (deep venous thrombosis) 3. Lung mass 4. Anemia 5. Paroxysmal A-fib 6. [id number] kidney injury Pain Ratin Pain Location: N/A Pain Goal: Remain pain free Pain Plan: PATHWAY Tomorrow's Labs & Rationales: CBC BEP INR
[2017-06-04 08:09] LABS: ABSOLUTE BASOPHIL COUNT 0 /CUMM (0.0-0.2); ABSOLUTE EOSINOPHIL COUNT 0.2 /CUMM (0.0-0.7); ABSOLUTE GRANULOCYTE CT 5.6 /CUMM (1.4-6.5); ABSOLUTE LYMPH COUNT 1.5 /CUMM (1.2-3.4); ABSOLUTE MONOCYTE COUNT 0.6 /CUMM (0.10-0.60); BASOPHIL % 0.4 % (0.0-2.0); EOSINOPHIL % 2.8 % (0-5); GRANULOCYTE % 69.8 % (42.2-75.2); HEMATOCRIT 26.7 % (37-47); MEAN CORPUSCULAR HGB 32.7 PG (27.0-31.0); MEAN CORPUSCULAR HGB CONC 32.6 G/DL (33.0-37.0); MEAN CORPUSCULAR VOLUME 100.2 FL (81.0-99.0); MEAN PLATELET VOLUME 8.1 FL (7.4-10.4); PLATELET COUNT 182 /CUMM (130-400); RBC DISTRIBUTION WIDTH 15.2 % (11.5-14.5); RED BLOOD CELL CT 2.67 /CUMM (4.20-5.40)
[2017-06-04 08:23] LABS: PT 19.4 SEC (9.4-12.5)
--- NOTE | 2017-06-04 11:49 | PN- Nephrology ---
Assessment/Plan Nephrology Assessment: JANNETH getting a bit better. Seen by heme/onc re lung mass. Appreciate excellent management by medical team. Suggestion: . Subjective Subjective: Pt comfortable. Cr 2.3 a bit better. Objective Vital Signs and I&Os F NAD Lungs clear Cor RRR Abd soft Ext 2+edema Results Pertinent Lab Results: Laboratory Tests 06/04 06/04 06/03 0618 0400 1929 Chemistry Sodium (137 - 145 mmol/L) 141 Potassium (3.5 - 5.1 mmol/L) 4.4 Chloride (98 - 107 mmol/L) 107 Carbon Dioxide (22 - 30 mmol/L) 24 Anion Gap (5 - 16) 10 BUN (7 - 17 mg/dL) 32 H Creatinine (0.5 - 1.0 mg/dL) 2.3 H Estimated GFR (>60 ml/min) 20 L BUN/Creatinine Ratio (7 - 25 %) 13.9 Coagulation PT (9.4 - 12.5 SEC) 19.4 H INR (0.90 - 1.19) 1.77 H APTT (25 - 37 SEC) 97 H Hematology CBC w Diff NO MAN DIFF REQ WBC (4.8 - 10.8 /CUMM) 8.0 RBC (4.20 - 5.40 /CUMM) 2.67 L Hgb (12.0 - 16.0 G/DL) 8.7 L Hct (37 - 47 %) 26.7 L MCV (81.0 - 99.0 FL) 100.2 H MCH (27.0 - 31.0 PG) 32.7 H MCHC (33.0 - 37.0 G/DL) 32.6 L RDW (11.5 - 14.5 %) 15.2 H Plt Count (130 - 400 /CUMM) 182 MPV (7.4 - 10.4 FL) 8.1 Gran % (42.2 - 75.2 %) 69.8 Lymphocytes % (20.5 - 51.1 %) 19.0 L Monocytes % (1.7 - 9.3 %) 8.0 Eosinophils % (0 - 5 %) 2.8 Basophils % (0.0 - 2.0 %) 0.4 Absolute Granulocytes (1.4 - 6.5 /CUMM) 5.6 Absolute Lymphocytes (1.2 - 3.4 /CUMM) 1.5 Absolute Monocytes (0.10 - 0.60 /CUMM) 0.6 Absolute Eosinophils (0.0 - 0.7 /CUMM) 0.2 Absolute Basophils (0.0 - 0.2 /CUMM) 0 Urines Ur Creatinine 24 Hour Cancelled Ur Total Protein 24 Hr Cancelled Protein/Creat Ratio 24h Cancelled U Protein Electrophores Cancelled Urine Albumin (%) Cancelled U [id number] Cancelled U [id number] Cancelled U Beta Globulin Cancelled U Gamma Globulin Cancelled U Abnormal Prot Band 1 Cancelled U Abnormal Prot Band 2 Cancelled U Abnormal Prot Band 3 Cancelled 06/03 06/03 06/03 1623 1055 0425 Coagulation PT (9.4 - 12.5 SEC) 14.4 H INR (0.90 - 1.19) 1.32 H APTT (25 - 37 SEC) 77 H Miscellaneous Ref Lab Test Result Pending 06/03 06/02 0425 1800 Chemistry Sodium (137 - 145 mmol/L) 142 Potassium (3.5 - 5.1 mmol/L) 4.5 Chloride (98 - 107 mmol/L) 109 H Carbon Dioxide (22 - 30 mmol/L) 24 Anion Gap (5 - 16) 9 BUN (7 - 17 mg/dL) 32 H Creatinine (0.5 - 1.0 mg/dL) 2.4 H Estimated GFR (>60 ml/min) 19 L BUN/Creatinine Ratio (7 - 25 %) 13.3 Coagulation APTT (25 - 37 SEC) 62 H 54 H Hematology CBC w Diff NO MAN DIFF REQ WBC (4.8 - 10.8 /CUMM) 8.5 RBC (4.20 - 5.40 /CUMM) 2.72 L Hgb (12.0 - 16.0 G/DL) 8.8 L Hct (37 - 47 %) 27.4 L MCV (81.0 - 99.0 FL) 100.5 H MCH (27.0 - 31.0 PG) 32.2 H MCHC (33.0 - 37.0 G/DL) 32.0 L RDW (11.5 - 14.5 %) 15.1 H Plt Count (130 - 400 /CUMM) 196 MPV (7.4 - 10.4 FL) 7.9 Gran % (42.2 - 75.2 %) 70.8 Lymphocytes % (20.5 - 51.1 %) 18.0 L Monocytes % (1.7 - 9.3 %) 8.5 Eosinophils % (0 - 5 %) 2.3 Basophils % (0.0 - 2.0 %) 0.4 Absolute Granulocytes (1.4 - 6.5 /CUMM) 6.0 Absolute Lymphocytes (1.2 - 3.4 /CUMM) 1.5 Absolute Monocytes (0.10 - 0.60 /CUMM) 0.7 H Absolute Eosinophils (0.0 - 0.7 /CUMM) 0.2 Absolute Basophils (0.0 - 0.2 /CUMM) 0 06/02 06/02 1730 1330 Coagulation APTT Cancelled Urines Urine Color (YEL,AMB,STR) YEL Urine Clarity (CLEAR) CLEAR Urine pH (5.0 - 8.0) 6.5 Ur Specific [place] (1.001 - 1.035) 1.010 Urine Protein (NEG,<30 MG/DL) TRACE H Urine Ketones (NEG) NEG Urine Nitrite (NEG) NEG Urine Bilirubin (NEG) NEG Urine Urobilinogen (0.1 - 1.0 EU/dl) 0.2 Ur Leukocyte Esterase (NEG) NEG Ur Microscopic SEDIMENT EXAMINED Urine RBC (0 - 5 /HPF) RARE Urine WBC (0 - 2 /HPF) 1-3 H Ur Epithelial Cells (NONE,FEW) MOD H Urine Bacteria (NEG/NONE) MOD H Urine Mucus (FEW,NONE) RARE Urine Hemoglobin (NEG) TRACE-LYSED Urine Glucose (N MG/DL) 250 H 06/02 06/02 06/01 0650 0120 1750 Chemistry Sodium (137 - 145 mmol/L) 141 Potassium (3.5 - 5.1 mmol/L) 4.4 Chloride (98 - 107 mmol/L) 108 H Carbon Dioxide (22 - 30 mmol/L) 24 Anion Gap (5 - 16) 9 BUN (7 - 17 mg/dL) 35 H Creatinine (0.5 - 1.0 mg/dL) 2.5 H Estimated GFR (>60 ml/min) 18 L BUN/Creatinine Ratio (7 - 25 %) 14.0 Iron (37 - 170 ug/dL) 39 TIBC (265 - 497 ug/dL) 261 L Ferritin (11.1 - 264 ng/mL) 119.0 Vitamin B12 (239 - 931 pg/mL) 902 Folate (2.76 - 20.0 ng/mL) > 20.0 H Coagulation PT (9.4 - 12.5 SEC) 15.4 H 16.5 H INR (0.90 - 1.19) 1.41 H 1.51 H APTT (25 - 37 SEC) > 120 *H 82 H Hematology CBC w Diff NO MAN DIFF REQ WBC (4.8 - 10.8 /CUMM) 10.0 RBC (4.20 - 5.40 /CUMM) 2.72 L Hgb (12.0 - 16.0 G/DL) 8.9 L Hct (37 - 47 %) 27.2 L MCV (81.0 - 99.0 FL) 100.0 H MCH (27.0 - 31.0 PG) 32.6 H MCHC (33.0 - 37.0 G/DL) 32.6 L RDW (11.5 - 14.5 %) 15.5 H Plt Count (130 - 400 /CUMM) 192 MPV (7.4 - 10.4 FL) 8.3 Gran % (42.2 - 75.2 %) 75.3 H Lymphocytes % (20.5 - 51.1 %) 13.2 L Monocytes % (1.7 - 9.3 %) 8.8 Eosinophils % (0 - 5 %) 2.3 Basophils % (0.0 - 2.0 %) 0.4 Absolute Granulocytes (1.4 - 6.5 /CUMM) 7.5 H Absolute Lymphocytes (1.2 - 3.4 /CUMM) 1.3 Absolute Monocytes (0.10 - 0.60 /CUMM) 0.9 H Absolute Eosinophils (0.0 - 0.7 /CUMM) 0.2 Absolute Basophils (0.0 - 0.2 /CUMM) 0
[2017-06-04 14:41] VITALS: BP 146/72
--- NOTE | 2017-06-04 16:35 | PN- Hematology ---
Subjective Subjective: She is doing well without any new symptoms. She expressed her desire to do no further workup for the lung mass. Review of Systems: Constitutional: Denies: chills, fever, weakness, unexplained weight loss. Cardiovascular: Denies: chest pain. Respiratory: Denies: short of breath. GI: Reports: diarrhea, nausea, vomiting. Genitourinary: Denies: dysuria. Hematologic/Endocrine: Denies: bruising, bleeding. All Other Systems: Reviewed and Negative Objective Vital Signs and I&Os Vital Signs Date Time Temp Pulse Resp B/P B/P Pulse O2 O2 Flow FiO2 Mean Ox Delivery Rate 06/04 1441 97.3 82 20 146/72 96 Room Air 06/04 0558 97.8 78 20 140/70 95 06/03 2253 98.6 78 20 140/90 96 Intake & Output 06/04 1600 06/04 0800 06/04 0000 06/03 1600 06/03 0800 06/03 0000 Intake Total 301.7 200 550 120 500 Output Total 200 Balance 301.7 0 550 120 500 Intake, IV 151.7 Intake, Oral 150 200 550 120 500 Output, Urine 200 Patient 88.592 kg 86.636 kg 86.636 kg Weight Physical Exam: General Appearance: well developed/nourished, no apparent distress, alert, awake , comfortable, obese Head: atraumatic, normal appearance Ears, Nose, Throat: normal pharynx, normal ENT inspection Respiratory: normal breath sounds, chest non-tender, no respiratory distress, quiet respiration, decreased breath sounds Cardiovascular: regular rate/rhythm, murmur Gastrointestinal: normal bowel sounds, soft, non-tender Extremities: pedal edema, compression stocking in place Neurologic/Psych: awake, alert, oriented x 3 Skin: warm/dry Current Medications: Current Medications Sig/Rich Start time Last Medication Dose Route Stop Time Status Admin Acetaminophen 500 MG Q6P PRN 06/01 1100 AC 06/04 PO 0402 Heparin Sodium 25,000 UNIT Q24H 06/01 1730 AC 06/03 (Porcine) IV 2106 Sodium Chloride 500 ML Hydrocodone Bitart/ 1 TAB BID 06/02 2200 AC 06/04 Acetaminophen PO 0923 Insulin Aspart 0 TIDAC 05/28 0800 AC 06/04 SC 1206 Levothyroxine Sodium 0.05 MG DAILY AC 05/29 0700 AC 06/04 PO 0530 Lidocaine 1 PAT DAILY PRN 06/02 0800 AC 06/04 EXT 1206 Lorazepam 0.5 MG DAILY 05/28 1000 AC 06/04 PO 06/11 0958 0922 Mirtazapine 7.5 MG QPM 05/28 2200 AC 06/03 PO 2103 Ondansetron HCl 4 MG Q6P PRN 05/28 0230 AC IV Patient Medication 1 ED ONE ONE 06/04 1545 DC Teaching ED 06/04 1546 Prednisone 5 MG DAILY 05/28 1000 AC 06/04 PO 0922 Warfarin Sodium 3 MG COUMADIN 1700 ONE 06/04 1700 AC PO 06/04 1701 Warfarin Sodium 5 MG COUMADIN 1700 ONE 06/03 1700 DC 06/03 PO 06/03 1701 1649 Results Last 24 Hours of Lab Results: Laboratory Tests 06/04 06/04 06/03 0618 0400 1929 Chemistry Sodium (137 - 145 mmol/L) 141 Potassium (3.5 - 5.1 mmol/L) 4.4 Chloride (98 - 107 mmol/L) 107 Carbon Dioxide (22 - 30 mmol/L) 24 Anion Gap (5 - 16) 10 BUN (7 - 17 mg/dL) 32 H Creatinine (0.5 - 1.0 mg/dL) 2.3 H Estimated GFR (>60 ml/min) 20 L BUN/Creatinine Ratio (7 - 25 %) 13.9 Coagulation PT (9.4 - 12.5 SEC) 19.4 H INR (0.90 - 1.19) 1.77 H APTT (25 - 37 SEC) 97 H Hematology CBC w Diff NO MAN DIFF REQ WBC (4.8 - 10.8 /CUMM) 8.0 RBC (4.20 - 5.40 /CUMM) 2.67 L Hgb (12.0 - 16.0 G/DL) 8.7 L Hct (37 - 47 %) 26.7 L MCV (81.0 - 99.0 FL) 100.2 H MCH (27.0 - 31.0 PG) 32.7 H MCHC (33.0 - 37.0 G/DL) 32.6 L RDW (11.5 - 14.5 %) 15.2 H Plt Count (130 - 400 /CUMM) 182 MPV (7.4 - 10.4 FL) 8.1 Gran % (42.2 - 75.2 %) 69.8 Lymphocytes % (20.5 - 51.1 %) 19.0 L Monocytes % (1.7 - 9.3 %) 8.0 Eosinophils % (0 - 5 %) 2.8 Basophils % (0.0 - 2.0 %) 0.4 Absolute Granulocytes (1.4 - 6.5 /CUMM) 5.6 Absolute Lymphocytes (1.2 - 3.4 /CUMM) 1.5 Absolute Monocytes (0.10 - 0.60 /CUMM) 0.6 Absolute Eosinophils (0.0 - 0.7 /CUMM) 0.2 Absolute Basophils (0.0 - 0.2 /CUMM) 0 Urines Ur Creatinine 24 Hour Cancelled Ur Total Protein 24 Hr Cancelled Protein/Creat Ratio 24h Cancelled U Protein Electrophores Cancelled Urine Albumin (%) Cancelled U Rhqly-9-Ytmjxijo Cancelled U Cxipu-3-Jpftxntv Cancelled U Beta Globulin Cancelled U Gamma Globulin Cancelled U Abnormal Prot Band 1 Cancelled U Abnormal Prot Band 2 Cancelled U Abnormal Prot Band 3 Cancelled Assessment/Plan Hematology Assessment/Recommendations: Ms. Grant is an 86-year-old female with history of PAF on apixaban, DVT diagnosed in 04/2017, CKD stage III, PVD s/p external iliac vein stent, DM, fibromyalgia, and hypothyroidism who presented to the [facility] ED with nausea, vomiting, and diarrhea. She was was noted to have gastroenteritis and acute on chronic kidney injury. She was admitted for gastroenteritis which has improved. Renal injury is stable. Nephrology is following. Anemia is stable. Iron studies suggest anemia of chronic kidney disease. B12 and folate are normal. She is being transitioned to warfarin due to possible PE and renal injury. Patient does not want to work up lung mass. SPEP is negative. Serum free light changes demonstrate elevated kappa light chain and slightly elevated ratio. This is likely related to her renal injury. JANNETH and CKD can cause an increase serum free light chains. It is unlikely that she has myeloma. UPEP is pending. DVT with possible PE: -heparin bridge to warfarin Anemia: -consider EZEQUIEL, will need to discuss this with her supervisor extruding department Lung mass: -pulmonary evaluation -likely will need biopsy -patient desire to not work up JANNETH: -avoid nephrotoxic drugs Please call [phone] with any questions or concerns. Problem List: 1. DVT (deep venous thrombosis) 2. Lung mass 3. Anemia 4. Csiyt-ms-sewzkit kidney injury 5. Pulmonary hypertension
[2017-06-04 19:14] LABS: PTT 69 SEC (25-37)
[2017-06-04 22:30] VITALS: BP 124/72
[2017-06-05 06:57] VITALS: BP 100/80
--- NOTE | 2017-06-05 08:25 | PN- Housestaff ---
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 fib [id number] Subjective: Examined at bedside, afebrile, no overnight events, complaints of mild chronic lower back pain radiating to both lower extremities relieved by pain meds. INR is therapeutic today, Coumadin was dosed. Kidney function slowly improving Review of Systems Constitutional: Reports: see HPI. Objective Last 24 Hrs of Vital Signs/I&O Vital Signs Date Time Temp Pulse Resp B/P B/P Pulse O2 O2 Flow FiO2 Mean Ox Delivery Rate 06/05 0800 93 Room Air 06/05 0657 97.7 93 20 100/80 93 Room Air 06/04 2248 Room Air 06/04 2230 98.7 84 18 124/72 95 06/04 1441 97.3 82 20 146/72 96 Room Air Intake & Output 06/05 1600 06/05 0800 03 0000 Intake Total 390 315 Output Total Balance 390 315 Intake, IV 150 75 Intake, Oral 240 240 Patient 193 lb Weight Physical Exam General Appearance: Alert, Oriented X3, Cooperative, No Acute Distress HEENT: Atraumatic, PERRLA, EOMI, Mucous Membr. moist/pink Neck: Supple, No JVD Cardiovascular: Normal S1, Normal S2, No Murmurs Lungs: Clear to Auscultation Abdomen: Normal Bowel Sounds, Soft, No Tenderness Assessment/Plan Assessment: 86 YO F non smoker with PMH of A.fib not on anticoagulation, DVT on eliquis, DM, PVD s/p stent placement, fibromyelgia and hypothyroidism was brought previously with chief complaint of nausea, vomiting and diarrhea since yesterday afternoon. Pulmonary hypertension/pulmonary embolus/lung mass Right femoral vein DVT: Patient is not interested in any invasive diagnostic or therapeutic measures Continue IV heparin drip and transition to Coumadin as per hematology recommendation Close monitoring of PT, INR, PTT INR today was 1.77, was given Coumadin 3 mg Guaiac all stool Pulmonary recommendation appreciated Hematology recommendation appreciated Vascular consult appreciated (spoke with Dr. Ordaz over the phone who recommended to continue with the current anticoagulation) Paroxysmal A. fib: -Continue to observe on telemetry -Trops/EKG negative -Continue levothyroxine 50 mEq daily -Continue IV heparin drip -INR is therapeutic today, will give Coumadin 3 mg today -Cardiology recommendations appreciated Acute gastroenteritis: Improved Leukocytosis resolved -No more diarrhea during hospital stay. -encourage oral intake. -Antiemetic medication when necessary -C. difficile was negative Acute on chronic kidney injury: Slowly improving, creatinine today is 2.2 -Could be Precipitated by acute loss of fluid by gastroenteritis or due to contrast-induced kidney injury as patient got stent placement 3 weeks back. Patient will be advised to avoid contrast material after discharge as much as possible Patient's baseline creatinine is 1.4 Markedly increased kappa light chains which might be responsible for her kidney injury Follow-up on urine protein electrophoresis, patient is incontinent at baseline, Hyatt catheter had to be placed to collect urine for the 24 hour urine protein electrophoresis -Monitor input and output -No nephrotoxic medications -Hold Lasix for now that can precipitate kidney injury. -Nephrology recommendations appreciated History of diabetes: Fingerstick glucose 240, 140 -Continue to hold her home medication -Accu-Cheks -Insulin NovoLog according to sliding scale during hospital stay. History of fibromyalgia: -Continue home medications History of hypothyroidism: -Continue levothyroxine at 50mcg -TSH and free T4 Anemia Stable H&H -Macrocytic with MCV 100 -Follow-up on folate, vitamin B12, iron studies -Close monitoring of CBCs DVT prophylaxis: - mechanical and IV heparin CODE STATUS:DNR/DNI Problem List: 1. Pulmonary hypertension 2. DVT (deep venous thrombosis) 3. Lung mass 4. Anemia 5. Paroxysmal A-fib 6. Taqry-ib-egbroty kidney injury Pain Ratin Pain Location: LOWER BACK Pain Goal: Pain 4 or less Pain Plan: PATHWAY Tomorrow's Labs & Rationales: CBC BEP PT
[2017-06-05 08:41] LABS: ABSOLUTE BASOPHIL COUNT 0 /CUMM (0.0-0.2); ABSOLUTE EOSINOPHIL COUNT 0.2 /CUMM (0.0-0.7); ABSOLUTE GRANULOCYTE CT 5.6 /CUMM (1.4-6.5); ABSOLUTE LYMPH COUNT 1.6 /CUMM (1.2-3.4); ABSOLUTE MONOCYTE COUNT 0.8 /CUMM (0.10-0.60); BASOPHIL % 0.4 % (0.0-2.0); EOSINOPHIL % 2.8 % (0-5); HEMATOCRIT 27.6 % (37-47); MEAN CORPUSCULAR HGB CONC 33.3 G/DL (33.0-37.0); MEAN CORPUSCULAR VOLUME 99.2 FL (81.0-99.0); MEAN PLATELET VOLUME 8.3 FL (7.4-10.4); PLATELET COUNT 198 /CUMM (130-400); RBC DISTRIBUTION WIDTH 15.7 % (11.5-14.5); RED BLOOD CELL CT 2.78 /CUMM (4.20-5.40); WHITE BLOOD CELL COUNT 8.2 /CUMM (4.8-10.8)
[2017-06-05 08:47] LABS: PT 23.8 SEC (9.4-12.5); PTT 55 SEC (25-37)
[2017-06-05] MEDS ORDERED: COUMADIN3 M1 PO (10:17)
--- NOTE | 2017-06-05 13:42 | PN- Att Addend ---
Attending Addendum Attending Brief Note Patient seen and examined. Plan of care discussed with the medical team and the patient. Available lab work and radiology test reports were reviewed. Patient does not report any difficulty breathing chest pain fever chills. She appears comfortable and able to speak in full sentences. Exam: General: Patient awake alert oriented without any distress CVS: S1 plus S2 without any murmur or gallops Chest: Few scattered crepitation without any wheeze. There is no respiratory distress. Abdomen: Soft non-tender, bowel sound present, no guarding or rebound INSPECTOR OUTSIDE PRODUCTION: Awake alert oriented without any focal neuro deficit and follows commands appropriately Extremities: No edema; no clubbing or cyanosis noted Current Medications Sig/Rihc Start time Last Medication Dose Route Stop Time Status Admin Acetaminophen 500 MG Q6P PRN 06/01 1100 AC 06/05 PO 0648 Heparin Sodium 25,000 UNIT Q24H 06/05 1215 AC (Porcine) IV Sodium Chloride 500 ML Heparin Sodium 25,000 UNIT Q24H 06/01 1730 DC 06/05 (Porcine) IV 0136 Sodium Chloride 500 ML Hydrocodone Bitart/ 1 TAB BID 06/02 2200 AC 06/05 Acetaminophen PO 1335 Insulin Aspart 0 TIDAC 05/28 0800 AC 06/05 SC 1258 Levothyroxine Sodium 0.05 MG DAILY AC 05/29 0700 AC 06/05 PO 0551 Lidocaine 1 PAT DAILY PRN 06/02 0800 AC 06/04 EXT 1206 Lorazepam 0.5 MG DAILY 05/28 1000 AC 06/05 PO 06/11 0958 1123 Mirtazapine 7.5 MG QPM 05/28 2200 AC 06/04 PO 2225 Ondansetron HCl 4 MG Q6P PRN 05/28 0230 AC IV Patient Medication 1 ED ONE ONE 06/04 1545 DC 06/04 Teaching ED 06/04 1546 1741 Prednisone 5 MG DAILY 05/28 1000 AC 06/05 PO 0858 Warfarin Sodium 3 MG COUMADIN 1700 ONE 06/05 1700 AC PO 06/05 1701 Warfarin Sodium 3 MG COUMADIN 1700 ONE 06/04 1700 DC 06/04 PO 06/04 1701 1741 Laboratory Tests 06/05/17 0634: Anion Gap 11, Estimated GFR 21 L, BUN/Creatinine Ratio 14.1, PT 23.8 H, INR 2.17 H, APTT 55 H, CBC w Diff NO MAN DIFF REQ, RBC 2.78 L, MCV 99.2 H, MCH 33.0 H, MCHC 33.3, RDW 15.7 H, MPV 8.3, Gran % 68.0, Lymphocytes % 19.6 L, Monocytes % 9.2, Eosinophils % 2.8, Basophils % 0.4, Absolute Granulocytes 5.6, Absolute Lymphocytes 1.6, Absolute Monocytes 0.8 H, Absolute Eosinophils 0.2, Absolute Basophils 0 06/04/17 1835: APTT 69 H 06/04/17 1130: APTT Cancelled 06/04/17 0618: Anion Gap 10, Estimated GFR 20 L, BUN/Creatinine Ratio 13.9, PT 19.4 H, INR 1.77 H, CBC w Diff NO MAN DIFF REQ, RBC 2.67 L, MCV 100.2 H, MCH 32.7 H, MCHC 32.6 L, RDW 15.2 H, MPV 8.1, Gran % 69.8, Lymphocytes % 19.0 L, Monocytes % 8.0, Eosinophils % 2.8, Basophils % 0.4, Absolute Granulocytes 5.6, Absolute Lymphocytes 1.5, Absolute Monocytes 0.6, Absolute Eosinophils 0.2, Absolute Basophils 0 06/04/17 0400: APTT 97 H 06/03/17 1929: Ur Creatinine 24 Hour Cancelled, Ur Total Protein 24 Hr Cancelled, Protein/Creat Ratio 24h Cancelled, U Protein Electrophores Cancelled, Urine Albumin (%) Cancelled, U Liyam-0-Crcxctwp Cancelled, U Hhzrv-8-Mkreucfa Cancelled, U Beta Globulin Cancelled, U Gamma Globulin Cancelled, U Abnormal Prot Band 1 Cancelled , U Abnormal Prot Band 2 Cancelled, U Abnormal Prot Band 3 Cancelled 06/03/17 1623: APTT 77 H 06/03/17 1055: Ref Lab Test Result Pending 06/03/17 0425: PT 14.4 H, INR 1.32 H 06/03/17 0425: Anion Gap 9, Estimated GFR 19 L, BUN/Creatinine Ratio 13.3, APTT 62 H, CBC w Diff NO MAN DIFF REQ, RBC 2.72 L, MCV 100.5 H, MCH 32.2 H, MCHC 32.0 L, RDW 15.1 H, MPV 7.9, Gran % 70.8, Lymphocytes % 18.0 L, Monocytes % 8.5, Eosinophils % 2.3, Basophils % 0.4, Absolute Granulocytes 6.0, Absolute Lymphocytes 1.5, Absolute Monocytes 0.7 H, Absolute Eosinophils 0.2, Absolute Basophils 0 06/02/17 1800: APTT 54 H 06/02/17 1730: Urine Color YEL, Urine Clarity CLEAR, Urine pH 6.5, Ur Specific [place] 1.010, Urine Protein TRACE H, Urine Ketones NEG, Urine Nitrite NEG, Urine Bilirubin NEG, Urine Urobilinogen 0.2, Ur Leukocyte Esterase NEG, Ur Microscopic SEDIMENT EXAMINED, Urine RBC RARE, Urine WBC 1-3 H, Ur Epithelial Cells MOD H, Urine Bacteria MOD H, Urine Mucus RARE, Urine Hemoglobin TRACE-LYSED, Urine Glucose 250 H Microbiology 06/02 1729 URINE ROUT: Urine Culture - COMP ESCHERICHIA COLI Vital Signs Date Time Temp Pulse Resp B/P B/P Pulse O2 O2 Flow FiO2 Mean Ox Delivery Rate 06/05 0800 93 Room Air 06/05 0657 97.7 93 20 100/80 93 Room Air 06/04 2248 Room Air 06/04 2230 98.7 84 18 124/72 95 06/04 1441 97.3 82 20 146/72 96 Room Air Intake & Output 06/05 1600 06/05 0800 06/05 0000 Intake Total 390 315 Output Total Balance 390 315 Intake, IV 150 75 Intake, Oral 240 240 Patient 193 lb Weight Assessment * Acute pulmonary embolism; failed therapy with a new anti-coags * Lung mass-patient not interested in working up * Pulmonary hypertension * Right femoral vein DVT * History of proximal A. fib * Chronic renal failure- creatinine currently stable at baseline Plan * she needs a total of 5 days of overlap with the IV heparin and Coumadin; patient had at least 4 days of IV heparin; based on this she needs 1 more day of IV heparin * Continue oral Coumadin * Monitor for any bleeding * Discharge planning for tomorrow
[2017-06-05 14:24] VITALS: BP 134/70
[2017-06-05 18:37] LABS: PTT 84 SEC (25-37)
[2017-06-05 23:12] VITALS: BP 140/90
[2017-06-06 05:10] LABS: ABSOLUTE BASOPHIL COUNT 0 /CUMM (0.0-0.2); ABSOLUTE EOSINOPHIL COUNT 0.2 /CUMM (0.0-0.7); ABSOLUTE GRANULOCYTE CT 9.7 /CUMM (1.4-6.5); ABSOLUTE LYMPH COUNT 1.7 /CUMM (1.2-3.4); ABSOLUTE MONOCYTE COUNT 0.8 /CUMM (0.10-0.60); BASOPHIL % 0.3 % (0.0-2.0); EOSINOPHIL % 1.8 % (0-5); GRANULOCYTE % 77.3 % (42.2-75.2); HEMATOCRIT 29.5 % (37-47); MEAN CORPUSCULAR HGB 32.2 PG (27.0-31.0); MEAN CORPUSCULAR HGB CONC 32.1 G/DL (33.0-37.0); MEAN CORPUSCULAR VOLUME 100.5 FL (81.0-99.0); MEAN PLATELET VOLUME 7.9 FL (7.4-10.4); PLATELET COUNT 212 /CUMM (130-400); RBC DISTRIBUTION WIDTH 15.5 % (11.5-14.5); RED BLOOD CELL CT 2.94 /CUMM (4.20-5.40)
[2017-06-06 05:14] LABS: WHITE BLOOD CELL COUNT 12.6 /CUMM (4.8-10.8)
[2017-06-06 05:18] LABS: PT 25.9 SEC (9.4-12.5); PTT 88 SEC (25-37)
[2017-06-06 07:16] VITALS: BP 160/80
--- NOTE | 2017-06-06 12:13 | PN- Housestaff ---
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 Will discharge today after 5:30pm to complete 5 days of overlap Coumadin with warfarin. Review of Systems Constitutional: Reports: see HPI. Objective Last 24 Hrs of Vital Signs/I&O Vital Signs Date Time Temp Pulse Resp B/P B/P Pulse O2 O2 Flow FiO2 Mean Ox Delivery Rate 06/06 0800 95 Room Air 06/06 0716 98.5 80 20 160/80 95 Room Air 06/05 2312 97.7 100 24 140/90 95 06/05 1600 94 Room Air Intake & Output 06/06 1600 06/06 0800 06/06 0000 Intake Total 500 416 748 Output Total Balance 500 416 748 Intake, IV 176 88 Intake, Oral 500 240 660 Patient 85.077 kg Weight Physical Exam General Appearance: Alert, Oriented X3, Cooperative, No Acute Distress Skin: No Rashes Skin Temp/Moisture Exam: Warm/Dry HEENT: Atraumatic, PERRLA, EOMI, Mucous Membr. moist/pink Neck: Supple Cardiovascular: Normal S1, Normal S2, No Murmurs, irregular Lungs: Clear to Auscultation, Normal Air Movement Abdomen: Normal Bowel Sounds, Soft Neurological: Normal Gait, Normal Speech, Strength at 5/5 X4 Ext, Normal Tone, Sensation Intact, Cranial Nerves 3-12 NL, Reflexes 2+ Extremities: No Clubbing, No Cyanosis Assessment/Plan Assessment: 86 YO F non smoker with PMH of A.fib not on anticoagulation, DVT on eliquis, DM, PVD s/p stent placement, fibromyelgia and hypothyroidism was brought previously with chief complaint of nausea, vomiting and diarrhea since yesterday afternoon. Pulmonary hypertension/pulmonary embolus/lung mass Right femoral vein DVT: Patient is not interested in any invasive diagnostic or therapeutic measures Continue IV heparin drip and transition to Coumadin with 5 days overlap Close monitoring of PT, INR, PTT INR today was 2.36, was given Coumadin 3 mg Guaiac all stool Pulmonary recommendation appreciated Hematology recommendation appreciated Vascular consult appreciated (spoke with Dr. Ordaz over the phone who recommended to continue with the current anticoagulation) Paroxysmal A. fib: -Trops/EKG negative -Continue levothyroxine 50 mEq daily -Continue IV heparin drip -INR is therapeutic today, will give Coumadin 3 mg today -Cardiology recommendations appreciated Acute gastroenteritis: Improved Leukocytosis resolved -No more diarrhea during hospital stay. -encourage oral intake. -Antiemetic medication when necessary -C. difficile was negative Acute on chronic kidney injury: Slowly improving, creatinine today is 2.2 same like yesterday -Could be Precipitated by acute loss of fluid by gastroenteritis or due to contrast-induced kidney injury as patient got stent placement 3 weeks back. Patient will be advised to avoid contrast material after discharge as much as possible Patient's baseline creatinine is 1.4 Markedly increased kappa light chains which might be responsible for her kidney injury Follow-up on urine protein electrophoresis, patient is incontinent at baseline, Hyatt catheter had to be placed to collect urine for the 24 hour urine protein electrophoresis -Monitor input and output -No nephrotoxic medications -Hold Lasix for now that can precipitate kidney injury. -Nephrology recommendations appreciated History of diabetes: Fingerstick glucose 240, 140 -Continue to hold her home medication -Accu-Cheks -Insulin NovoLog according to sliding scale during hospital stay. History of fibromyalgia: -Continue home medications History of hypothyroidism: -Continue levothyroxine at 50mcg -TSH and free T4 Anemia Stable H&H -Macrocytic with MCV 100 -Follow-up on folate, vitamin B12, iron studies -Patient had mild leukocytosis today of 12.6. She did not offer any complaint. Vital signs are stable, remained febrile. Patient will be discharged to repeat her CBC early this week and follow up with PCP DVT prophylaxis: - mechanical and IV heparin, warfrain CODE STATUS:DNR/DNI Problem List: 1. Pulmonary hypertension 2. DVT (deep venous thrombosis) 3. Lung mass 4. Anemia 5. Paroxysmal A-fib 6. Saaix-ht-hifbwhx kidney injury Pain Ratin Pain Location: N/A Pain Goal: Pain 4 or less Pain Plan: see medication Tomorrow's Labs & Rationales: CBC
--- NOTE | 2017-06-06 13:01 | PN- Att Addend ---
Attending Addendum Attending Brief Note Patient seen and examined. Plan of care discussed with the medical team and the patient. Available lab work and radiology test reports were reviewed. Patient does not report any difficulty breathing chest pain fever chills. She appears comfortable and able to speak in full sentences. Exam: General: Patient awake alert oriented without any distress CVS: S1 plus S2 without any murmur or gallops Chest: Few scattered crepitation without any wheeze. There is no respiratory distress. Abdomen: Soft non-tender, bowel sound present, no guarding or rebound VIDEOGAME DESIGNER: Awake alert oriented without any focal neuro deficit and follows commands appropriately Extremities: No edema; no clubbing or cyanosis noted Assessment * Acute pulmonary embolism; failed therapy with a new anti-coags * Lung mass-patient not interested in working up * Pulmonary hypertension * Right femoral vein DVT * History of proximal A. fib * Chronic renal failure- creatinine currently stable at baseline * Increased wbc count of unclear etiology Plan * she needs a total of 5 days of overlap with the IV heparin and Coumadin; patient will complete 5 days of IV heparin at 5:30 PM today. At that point heparin should be stopped. Unfortunately because of her renal insufficiency patient is not a good candidate for Lovenox. * Continue oral Coumadin * Monitor for any bleeding * Discharge planning later this evening * Repeat CBC tomorrow Current Medications Sig/Rich Start time Last Medication Dose Route Stop Time Status Admin Acetaminophen 500 MG .STK-MED ONE 06/06 0453 DC PO 06/06 0454 Acetaminophen 500 MG Q6P PRN 06/01 1100 AC 06/06 PO 0453 Heparin Sodium 25,000 UNIT Q24H 06/05 1215 AC 06/06 (Porcine) IV 1150 Sodium Chloride 500 ML Hydrocodone Bitart/ 1 TAB BID 06/02 2200 AC 06/06 Acetaminophen PO 0741 Insulin Aspart 0 TIDAC 05/28 0800 AC 06/06 SC 1257 Levothyroxine Sodium 0.05 MG DAILY AC 05/29 0700 AC 06/06 PO 0551 Lidocaine 1 PAT DAILY PRN 06/02 0800 AC 06/05 EXT 1838 Lorazepam 0.5 MG DAILY 05/28 1000 AC 06/05 PO 06/11 0958 1123 Mirtazapine 7.5 MG QPM 05/28 2200 AC 06/05 PO 2210 Ondansetron HCl 4 MG Q6P PRN 05/28 0230 AC IV Prednisone 5 MG DAILY 05/28 1000 AC 06/06 PO 0952 Warfarin Sodium 3 MG COUMADIN 1700 ONE 06/06 1700 AC PO 06/06 1701 Warfarin Sodium 3 MG COUMADIN 170 ONE 06/05 170 DC 06/05 PO 06/05 170 1733 Laboratory Tests 06/06/17 0500: APTT Cancelled 06/06/17 0450: Anion Gap 12, Estimated GFR 21 L, BUN/Creatinine Ratio 15.0, PT 25.9 H, INR 2.36 H, APTT 88 H, CBC w Diff NO MAN DIFF REQ, RBC 2.94 L, MCV 100.5 H, MCH 32.2 H, MCHC 32.1 L, RDW 15.5 H, MPV 7.9, Gran % 77.3 H, Lymphocytes % 13.9 L, Monocytes % 6.7, Eosinophils % 1.8, Basophils % 0.3, Absolute Granulocytes 9.7 H, Absolute Lymphocytes 1.7, Absolute Monocytes 0.8 H, Absolute Eosinophils 0.2, Absolute Basophils 0 06/05/17 1700: APTT 84 H 06/05/17 0634: Anion Gap 11, Estimated GFR 21 L, BUN/Creatinine Ratio 14.1, PT 23.8 H, INR 2.17 H, APTT 55 H, CBC w Diff NO MAN DIFF REQ, RBC 2.78 L, MCV 99.2 H, MCH 33.0 H, MCHC 33.3, RDW 15.7 H, MPV 8.3, Gran % 68.0, Lymphocytes % 19.6 L, Monocytes % 9.2, Eosinophils % 2.8, Basophils % 0.4, Absolute Granulocytes 5.6, Absolute Lymphocytes 1.6, Absolute Monocytes 0.8 H, Absolute Eosinophils 0.2, Absolute Basophils 0 06/04/17 1835: APTT 69 H 06/04/17 1130: APTT Cancelled 06/04/17 0618: Anion Gap 10, Estimated GFR 20 L, BUN/Creatinine Ratio 13.9, PT 19.4 H, INR 1.77 H, CBC w Diff NO MAN DIFF REQ, RBC 2.67 L, MCV 100.2 H, MCH 32.7 H, MCHC 32.6 L, RDW 15.2 H, MPV 8.1, Gran % 69.8, Lymphocytes % 19.0 L, Monocytes % 8.0, Eosinophils % 2.8, Basophils % 0.4, Absolute Granulocytes 5.6, Absolute Lymphocytes 1.5, Absolute Monocytes 0.6, Absolute Eosinophils 0.2, Absolute Basophils 0 06/04/17 0400: APTT 97 H 06/03/17 1929: Ur Creatinine 24 Hour Cancelled, Ur Total Protein 24 Hr Cancelled, Protein/Creat Ratio 24h Cancelled, U Protein Electrophores Cancelled, Urine Albumin (%) Cancelled, U Lqfbq-2-Dqxgbvjp Cancelled, U Kbacs-8-Wtelgxbf Cancelled, U Beta Globulin Cancelled, U Gamma Globulin Cancelled, U Abnormal Prot Band 1 Cancelled , U Abnormal Prot Band 2 Cancelled, U Abnormal Prot Band 3 Cancelled 06/03/17 1623: APTT 77 H Vital Signs Date Time Temp Pulse Resp B/P B/P Pulse O2 O2 Flow FiO2 Mean Ox Delivery Rate 06/06 0800 95 Room Air 06/06 0716 98.5 80 20 160/80 95 Room Air 06/05 2312 97.7 100 24 140/90 95 06/05 1600 94 Room Air 06/05 1424 97.9 77 20 134/70 94 Room Air Intake & Output 06/06 1600 06/06 0800 06/06 0000 Intake Total 416 748 Output Total Balance 416 748 Intake, IV 176 88 Intake, Oral 240 660 Patient 188 lb Weight
[2017-06-06 15:11] VITALS: BP 142/68
== END 2017-06-06 18:35 | disposition home health service (06) | DRG 682 ==
LOC: ERH 19:40 → ERHI 23:45 → 1NO 23:45 → ERHI 23:45 → 1NO 23:45 → EDBEDREQ 05-28 00:52 → ERHI 05-28 09:47 → ENRESERV 05-28 14:48 → ENTRNSPT 05-28 16:30 → 1NO 05-28 17:02 → EDTRNSPT 05-28 17:06 → EDTRNSPTSTS 05-28 17:06 → CMPTRNSPT 05-28 17:14 → 1NO 05-30 11:47 → ENTRNSPT 06-06 18:15 → EDTRNSPTSTS 06-06 18:23 → 1NO 06-06 18:35 → CMPTRNSPT 06-06 18:51
PROVIDERS: Internal Medicine; Internal Medicine Endocrinology, Diabetes & Metabolism; Physician Assistant; Student in an Organized Health Care Education/Training Program
DX: N17.9 Acute kidney failure, unspecified (principal); I26.99 Other pulmonary embolism without acute cor pulmonale; I82.411 Acute embolism and thrombosis of right femoral vein; I48.0 Paroxysmal atrial fibrillation; E11.22 Type 2 diabetes mellitus with diabetic chronic kidney disease; E11.51 Type 2 diabetes mellitus with diabetic peripheral angiopathy without gangrene; E87.5 Hyperkalemia; E86.0 Dehydration; I48.92 Unspecified atrial flutter; N39.0 Urinary tract infection, site not specified; I27.20 Pulmonary hypertension, unspecified; D53.9 Nutritional anemia, unspecified; E03.9 Hypothyroidism, unspecified; G25.0 Essential tremor; I12.9 Hypertensive chronic kidney disease with stage 1 through stage 4 chronic kidney disease, or unspecified chronic kidney disease; K52.9 Noninfective gastroenteritis and colitis, unspecified; N18.3 Chronic kidney disease, stage 3 (moderate); R91.8 Other nonspecific abnormal finding of lung field; Z79.84 Long term (current) use of oral hypoglycemic drugs; Z79.01 Long term (current) use of anticoagulants; M79.7 Fibromyalgia; Z79.52 Long term (current) use of systemic steroids
CPT/HCPCS: 1NSP; 84133; 84300; 86160; ERO; 36415; 36592; 71046; 74176; 78582; 81001; 82436; 82570; 84165; 84166; 87045; 87086; 87328; 87329; 93005; 93010; 93306; 93970; 96374; A9540; A9558; J1644; J1940; J2405; J7040; J7060; J7512